=== PATIENT | female | born 1985 | race African-American/Black ===

== ENCOUNTER 2016-08-30 18:30 | Emergency (ER) | payer MEDICAID ==
--- NOTE | 2016-08-30 20:05 | ER Document Report ---
ED Medical Screen (RME) - General Stated Complaint: STOMACH PAIN Notes: Patient states she has been having dysuria for about 1 week. Also complains of lower abdominal pain, states she took a home test which turned out positive. Also has lower back pain, nausea without vomiting or diarrhea. Patient states child may have pinkeye, and her eyes have been itchy. The right one did have some mucus in it. States last menstrual period was either July 28 or August 06. I have greeted and performed a rapid initial assessment of this patient. A comprehensive ED assessment and evaluation of the patient, analysis of test results and completion of the medical decision making process will be conducted by additional ED providers. - Related Data Allergies/Adverse Reactions: No Known Allergies Allergy (Verified 08/30/16 20:04)
[2016-08-30 21:03] LABS: APPEARANCE,URINE CLEAR; BILIRUBIN,URINE NEGATIVE (NEGATIVE); GLUCOSE, URINE NEGATIVE (NEGATIVE); KETONES,URINE NEGATIVE (NEGATIVE); LEUKOCYTE ESTERASE,URINE TRACE (NEGATIVE); NITRITE,URINE NEGATIVE (NEGATIVE); PROTEIN,URINE NEGATIVE (NEGATIVE); URINE SPECIFIC GRAVITY 1.019; UROBILINOGEN,URINE NEGATIVE mg/dL (<2.0)
[2016-08-30] MEDS ORDERED: CEFTRIAXONE 1 GM/D5W RTU 50 ML IV ONE (21:25)
[2016-08-30] MEDS ORDERED: METOCLOPRAMIDE HCL 10 MG TABLET PO ONE (21:27)
[2016-08-30] MEDS ORDERED: DIPHENHYDRAMINE HCL 25 MG CAPSULE PO ONE (21:27)
--- NOTE | 2016-08-30 21:31 | ER Document Report ---
ED GI/ - General Chief Complaint: Urinary Problem Stated Complaint: STOMACH PAIN Time seen by provider: 21:27 Mode of Arrival: Ambulatory Information source: Patient Notes: 31-year-old female complaining of right pelvic pain and a positive home test at home. . She has been very nauseated for a week and a half. She has urinary urgency with voiding small amounts for one week. She also needs a note that says she can go back to work because her daughter has possible pinkeye. She had a watery right eye at work today no redness. LMP 2 -12 or 2-21 she does not remember. Denies vaginal discharge or vaginal bleeding. no vomiting or diarrhea. No history of gallbladder problems. No fever. She is shivering in the room but states she gets cold all the time. TRAVEL OUTSIDE OF THE [place] IN LAST 30 DAYS: No - Related Data Allergies/Adverse Reactions: No Known Allergies Allergy (Verified 08/30/16 20:04) Past Medical History - General Information source: Patient - Social History Smoking Status: Former Smoker Chew tobacco use (# tins/day): No Frequency of alcohol use: Rare Drug Abuse: None Lives with: Family Family History: Reviewed & Not Pertinent - Medical History Notes: Renal/ Medical History: Denies: Hx Peritoneal Dialysis Past Surgical History: Reports: Hx Gynecologic Surgery - LEEP for dysplasia Review of Systems - Review of Systems Constitutional: No symptoms reported EENT: See HPI Cardiovascular: No symptoms reported Respiratory: No symptoms reported Gastrointestinal: See HPI Genitourinary: No symptoms reported Female Genitourinary: No symptoms reported Musculoskeletal: No symptoms reported Skin: No symptoms reported Hematologic/Lymphatic: No symptoms reported Neurological/Psychological: No symptoms reported Physical Exam - Vital signs Vitals: Pulse BP Pulse Ox 83 114/69 100 08/30/16 19:38 08/30/16 19:38 08/30/16 19:38 Interpretation: Normal Notes: Temp 99 respiratory rate was 16 but it has not been recorded in the chart yet by the nurse. - General General appearance: Appears well, Alert Notes: Shivering - HEENT Head: Normocephalic, Atraumatic Eyes: Normal Conjunctiva: Normal. No: Injected, Purulent discharge Extraocular movements intact: Yes Eyelashes: Normal Pupils: PERRL Nerve palsy: No Mucous membranes: Normal Pharynx: Normal Neck: Supple - Respiratory Respiratory status: No respiratory distress Chest status: Nontender Breath sounds: Normal Chest palpation: Normal - Cardiovascular Rhythm: Regular Heart sounds: Normal auscultation Murmur: No - Abdominal Inspection: Normal Distension: No distension Bowel sounds: Normal Tenderness: Tender - Right pelvis. No: McBurney's point Organomegaly: No organomegaly. No: Hepatomegaly, Splenomegaly - Genitourinary External exam: Normal Speculum exam: Normal, Cervix closed Vaginal bleeding: None Bimanuel exam: No: Cervical motion tender, Adnexal tenderness Notes: Wet prep is negative - Back Back: Normal, Nontender. No: CVA tenderness - Extremities General upper extremity: Normal inspection, Nontender, Normal color, Normal ROM , Normal temperature General lower extremity: Normal inspection, Nontender, Normal color, Normal ROM , Normal temperature, Normal weight bearing. No: Elo's sign - Neurological Neuro grossly intact: Yes Cognition: Normal Orientation: AAOx4 Romina Coma Scale Eye Opening: Spontaneous Romina Coma Scale Verbal: Oriented Romina Coma Scale Motor: Obeys Commands Romina Coma Scale Total: 15 Speech: Normal Motor strength normal: LUE, RUE, LLE, RLE Sensory: Normal - Psychological Associated symptoms: Normal affect, Normal mood - Skin Skin Temperature: Warm Skin Moisture: Dry Skin Color: Normal Skin irregularity: negative: Rash Course - Re-evaluation Re-evalutation: 08/30/16 21:30 Urinalysis shows 1+ bacteria with 18 wbc's a urine culture has been added, and urine chlamydia and gonorrhea test. I am giving her Rocephin IV. Also getting blood work and transvaginal ultrasound so she has right pelvis tenderness. Temp in triage was 99 and it as not been recorded in the chart yet I did tell the nurse about it. 08/30/16 21:31 Dr. zheng concerning the ultrasound and patient. 08/30/16 23:33 No intra-or extra uterine seen on ultrasound. Lab has not been drawn yet I got the receiver/laborer to get the blood 08/31/16 00:41 Abdomen is now nontende, pelvic exam was done vagina is normal no cervical motion tenderness, patient was able to eat and drink. She is not as nauseated. The Reglan and Benadryl which is been given. Wet prep sent to the lab. On a dictated hCG is 78 which is consistent with an ultrasound that does not show a . Since IV was not started I have given her oral Macrobid for the urinary tract infection pending the urine culture result. I instructed the patient to call me tomorrow night at 7 PM for the STD culture results. ConsultDr. Billings for dispo. - Vital Signs Vital signs: Temp Pulse Resp BP Pulse Ox 83 114/69 100 08/30/16 19:38 08/30/16 19:38 08/30/16 19:38 - Laboratory Result Diagrams: 08/30/16 23:54 08/30/16 23:54 Laboratory results interpreted by me: 08/30/16 08/30/16 08/30/16 19:45 23:54 23:54 Hgb 11.0 L Hct 34.6 L MCV 71 L MCH 22.5 L MCHC 31.8 L Beta HCG, Quant 78.95 H Ur Leukocyte Esterase TRACE H Urine HCG, Qual POSITIVE H Discharge - Discharge Clinical Impression: early Urinary tract infection Qualifiers: Urinary tract infection type: acute cystitis Hematuria presence: without hematuria Qualified Code(s): N30.00 - Acute cystitis without hematuria Condition: Good Disposition: HOME, SELF-CARE Instructions: Nitrofurantoin ([facility]), Urinary Tract Infection ([facility]), Pelvic Pain in ([facility]), [facility] ([facility]) Additional Instructions: Call me Friday night after 7 PM at [phone] for the STD culture results Take the antibiotic for the urinary tract infection Take the Reglan for nausea Return to the emergency room if worse Drink plenty of fluids Multivitamin daily Referral to health department and [facility] Urine culture pending Please complete the patient satisfaction survey if you get one, and return it.. If you do not receive a survey, then you can go to the [facility] website, [email or web address] and place your comments about your very good care. Thank you very much. It was a pleasure being your medical provider today. Forms: Return to Work
[2016-08-31 00:06] LABS: ABSOLUTE EOSINOPHILS # (AUTO) 0.2 10^3/uL (0.0-0.6); ABSOLUTE LYMPHOCYTES (AUTO) 2.3 10^3/uL (0.5-4.7); ABSOLUTE MONOCYTES (AUTO) 0.7 10^3/uL (0.1-1.4); ABSOLUTE NEUT (AUTO) 5.1 10^3/uL (1.7-8.2); BASOPHILS % (AUTO) 0.5 % (0-2); EOSINOPHILS % (AUTO) 2.8 % (0-6); HEMATOCRIT 34.6 % (36.0-47.0); HGB HCT DIFFERENCE -1.6; LYMPHOCYTES % (AUTO) 27.9 % (13-45); MEAN CORPUSCULAR HEMOGLOBIN 22.5 pg (27.0-33.4); MEAN CORPUSCULAR HGB CONC 31.8 g/dL (32.0-36.0); MEAN CORPUSCULAR VOLUME 71 fl (80-97); MONOCYTES % (AUTO) 8.5 % (3-13); RED BLOOD COUNT 4.89 10^6/uL (3.72-5.28); RED CELL DISTRIBUTION WIDTH 13.2 % (11.5-14.0); SEGMENTED NEUTROPHILS % (AUTO) 60.3 % (42-78); WHITE BLOOD COUNT 8.4 10^3/uL (4.0-10.5)
[2016-08-31 00:21] LABS: ALANINE AMINOTRANSFERASE 32 U/L (9-52); ALBUMIN 4.3 g/dL (3.5-5.0); ALKALINE PHOSPHATASE 69 U/L (38-126); ANION GAP 9 (5-19); ASPARTATE AMINO TRANSFERASE 23 U/L (14-36); BILIRUBIN,TOTAL 0.8 mg/dL (0.2-1.3); BLOOD UREA NITROGEN 7 mg/dL (7-20); CARBON DIOXIDE 24 mmol/L (22-30); CHLORIDE 106 mmol/L (98-107); CREATININE RESULT 0.52 mg/dL (0.52-1.25); GLUCOSE 107 mg/dL (75-110); TOTAL PROTEIN 7.3 g/dL (6.3-8.2)
[2016-08-31] MEDS ORDERED: NITROFURANTOIN MONOHYD/M-CRYST 100 MG CAPSULE PO ONE (00:29)
[2016-08-31] MEDS ORDERED: DIPHENHYDRAMINE HCL 25 MG CAPSULE ONE (00:33)
[2016-08-31] MEDS ORDERED: METOCLOPRAMIDE HCL 10 MG TABLET PO ONE (00:37)
[2016-08-31 01:16] VITALS: BP 121/71
[2016-08-31 01:41] LABS: CHLAM PCR DETECTED (NOT DETECT)
== END 2016-08-31 01:10 | disposition home or self-care (01) ==
LOC: ER 18:30
DX: O23.11 Infections of bladder in pregnancy, first trimester (principal); O26.891 Other specified pregnancy related conditions, first trimester; R10.2 Pelvic and perineal pain; R11.0 Nausea; R39.15 Urgency of urination; Z3A.00 Weeks of gestation of pregnancy not specified; Z87.891 Personal history of nicotine dependence
CPT/HCPCS: 99284; 36415; 87086; 87210; 84702; 85025; 81025; 87088; 80053; 81001; 87186; 87491; 87591; 76817; J8499

== ENCOUNTER 2016-09-06 16:17 | Emergency (ER) | payer SELFPAY ==
[2016-09-06] MEDS ORDERED: ALBUTEROL SULFATE 0.083% NEB 2.5 MG/3 ML AMPUL NEB ONE (16:29)
--- NOTE | 2016-09-06 16:30 | ER Document Report ---
ED Medical Screen (RME) - General Stated Complaint: DIFFICULTY BREATHING Notes: Patient complains of shortness of breath since yesterday. Does have cough cold symptoms. Has a history of asthma, and is out of her inhaler. Patient is possibly about 5 weeks. No fever. I have greeted and performed a rapid initial assessment of this patient. A comprehensive ED assessment and evaluation of the patient, analysis of test results and completion of the medical decision making process will be conducted by additional ED providers. TRAVEL OUTSIDE OF THE [place] IN LAST 30 DAYS: No - Related Data Allergies/Adverse Reactions: No Known Allergies Allergy (Verified 09/06/16 16:29) Past Medical History Renal/ Medical History: Denies: Hx Peritoneal Dialysis Past Surgical History: Reports: Hx Gynecologic Surgery - LEEP for dysplasia Physical Exam - Respiratory Notes: Decreased air movement and expiratory wheezes on auscultation. Patient in no respiratory distress.
--- NOTE | 2016-09-06 19:22 | ER Document Report ---
ED General - General Chief Complaint: Asthma Exacerbation Stated Complaint: DIFFICULTY BREATHING Mode of Arrival: Ambulatory Information source: Patient Notes: This is a 31-year-old female with a history of asthma who presents with increasing wheezing and upper respiratory symptoms for the past 3 days. She states that she has been out of her albuterol inhaler and her medication for the nebulizer for several months. She states that when she lived in [place] she did not really needs and medicines but since moving back here to [place] last fall she has had more problems with her asthma. She denies any fevers or chills. No systemic symptoms. No sputum production. Her children have had recent URIs. She received an albuterol neb upon triage and she is artificially better. Of note she states that when she was seen here last week she was told that her test is positive. She has continued to have some nausea and occasional bilateral lower quadrant abdominal cramping. She has had no vaginal bleeding. She is being treated for UTI with Macrobid and thinks that she may have a yeast infection because she has been having some some itching. She has not yet scheduled her OB care. She is tolerating PO TRAVEL OUTSIDE OF THE [place] IN LAST 30 DAYS: No - Related Data Allergies/Adverse Reactions: No Known Allergies Allergy (Verified 09/06/16 16:29) Past Medical History - General Information source: Patient - Social History Smoking Status: Former Smoker Chew tobacco use (# tins/day): No Frequency of alcohol use: None Drug Abuse: None Family History: Reviewed & Not Pertinent Pulmonary Medical History: Reports: Hx Asthma Renal/ Medical History: Denies: Hx Peritoneal Dialysis Past Surgical History: Reports: Hx Gynecologic Surgery - LEEP for dysplasia Review of Systems - Review of Systems Constitutional: denies: Chills, Fever EENT: See HPI, Nose congestion. denies: Sinus pressure Cardiovascular: No symptoms reported. denies: Chest pain, Palpitations, Syncope , Dizziness Respiratory: See HPI, Cough, Short of breath, Wheezing Gastrointestinal: See HPI Genitourinary: See HPI Musculoskeletal: No symptoms reported Skin: No symptoms reported Neurological/Psychological: No symptoms reported Physical Exam - Vital signs Vitals: Temp Pulse Resp BP Pulse Ox 99.0 F 105 H 18 100/64 99 09/06/16 16:25 09/06/16 16:25 09/06/16 16:25 09/06/16 16:25 09/06/16 16:25 - Notes Notes: PHYSICAL EXAMINATION: GENERAL: Well-appearing, well-nourished and in no acute distress. Pleasant and conversant with no conversational dyspnea HEAD: Atraumatic, normocephalic. EYES: Pupils equal round and reactive to light, extraocular movements intact, sclera anicteric, conjunctiva are normal. ENT: nares with mucous/congestion, oropharynx clear without exudates. Moist mucous membranes. NECK: Normal range of motion, supple without lymphadenopathy LUNGS: Breath sounds clear to auscultation bilaterally and equal. No wheezes rales or rhonchi. HEART: Regular rate and rhythm without murmurs ABDOMEN: Soft, nontender, normoactive bowel sounds. No guarding, no rebound. No masses appreciated. EXTREMITIES: Normal range of motion, no pitting or edema. No cyanosis. NEUROLOGICAL: Cranial nerves grossly intact. Normal speech. No gross focal motor or sensory deficits appreciated. PSYCH: Normal mood, normal affect. SKIN: Warm, Dry, normal turgor, no rashes or lesions noted. Course - Re-evaluation Re-evalutation: 09/06/16 19:20 Patient is already feeling better after first albuterol neb and I hear no wheezes on her lung exam. Her vital signs are stable. I will refill her albuterol inhaler and her nebulizer medications and have her follow-up with her primary care physician and with OB. She is encouraged to seek care. At this time her abdominal exam is benign and she has had no vaginal bleeding. We discussed strict return precautions to include increased abdominal pain, vaginal bleeding, fevers, or increasing shortness of breath or any worsening symptoms or concerns. 09/06/16 19:59 At time of discharge patient expresses to nurse that she is feeling a little bit worse. Her discharge vital she's noted to be febrile at 100.0 and more tachycardic at 120. Her lungs were still clear to auscultation bilaterally but she states that she feels like she needs another breathing treatment. At this time with the change in her vitals we will check basic labs, give a fluid bolus , and a second breathing treatment at this time. Discharge is held for the moment. 09/06/16 21:11 Patient reevaluated. She is sitting up smiling and testing on her phone. Her lung sounds are clear to auscultation bilaterally. She states that she feels much better. Her heart it is now 96. She is comfortable with the plan for discharge and her meds for her asthma have been renewed. She will follow-up for her OB care as instructed. Strict return precautions were discussed. - Vital Signs Vital signs: Temp Pulse Resp BP Pulse Ox 100 F 125 H 20 100/55 L 99 09/06/16 19:34 09/06/16 19:34 09/06/16 19:34 09/06/16 19:34 09/06/16 19:34 - Laboratory Result Diagrams: 09/06/16 20:20 09/06/16 20:20 Laboratory results interpreted by me: 09/06/16 09/06/16 20:20 20:20 Hgb 10.9 L Hct 34.2 L MCV 70 L MCH 22.3 L MCHC 31.7 L Monocytes % 18.2 H BUN 6 L Glucose 124 H ALT 55 H Discharge - Discharge Clinical Impression: Early stage of Asthma Qualifiers: Asthma severity: unspecified severity Asthma complication type: uncomplicated Qualified Code(s): J45.909 - Unspecified asthma, uncomplicated Upper respiratory infection Qualifiers: URI type: unspecified viral URI Qualified Code(s): J06.9 - Acute upper respiratory infection, unspecified Condition: Stable Disposition: HOME, SELF-CARE Additional Instructions: ASTHMA: You have been diagnosed as having asthma. This is a condition where there is episodic tightness in the bronchial tubes. Allergies, infections, and polluted or cold air may be contributing factors. Emergency treatment of a severe asthma attack may include adrenaline shots , or bronchodilator aerosol. You may feel lightheaded, have a decreased exercise tolerance and a rapid pulse for an hour or two. Rest and get plenty of fluids. Home treatment of asthma requires bronchodilator drugs. These can be administered by injection, inhalation, or by mouth. Antibiotics and corticosteroids may be required for some patients. You should avoid chemical fumes, dusts, pollens, and exercising in very cold or dry air. If you smoke, stop!! If you develop a fever, increased wheezing, chest pain, or severe shortness of breath, you should contact the doctor immediately. INHALED BRONCHODILATORS: You have received treatment(s) of and/or prescription for an inhaled bronchodilator -- a medication which stimulates the airways in the lung to dilate. This improves the flow of air in asthma, bronchitis, and emphysema. These medicines have some similarity to adrenaline, and can cause similar side effects: shakiness, racing heart, and a sense of nervousness. These side effects decrease with time. Contact your doctor if these side effects are severe. Do not over-use the medicine. Too-frequent use of the inhaler may make it ineffective. Call your doctor if the inhaler is not controlling your symptoms at the prescribed doses. SMOKING: If you smoke, you should stop smoking. The tar and chemicals in cigarette smoke are harmful. Smoking has been shown to cause: emphysema chronic bronchitis lung cancer mouth and throat cancer stomach and pancreas cancer premature aging defects In addition, smoking increases ear and lung infections in children of smokers. You are . care is best started as early in as possible. If you're unsure about continuing this , you should discuss this with your physician or with manufacturing group leader at [facility]. You should take only medications approved by your physician. Acetaminophen can safely be taken for minor pains. As a rule, medication for chronic conditions such as asthma or seizures can safely be continued. You should discuss with the physician every medicine you take. Any regular exercise program can be continued. Talk to your physician, however, before engaging in competitive or demanding sports. Alcohol, smoking, and "street drugs" are dangerous to your baby. Cocaine is especially dangerous. Don't use any illicit drugs! FOLLOW-UP CARE: If you have been referred to a physician for follow-up care, call the physician s office for an appointment as you were instructed or within the next two days. If you experience worsening or a significant change in your symptoms, notify the physician immediately or return to the Emergency Department at any time for re-evaluation. Prescriptions: Albuterol Sulfate [Proair HFA Inhalation Aerosol 8.5 gm MDI] 2 puff IH Q4H PRN # 1 mdi PRN Reason: Ipratropium/Albuterol Sulfate [Duoneb 3 ml Ampul] 3 ml NEB [id number] #20 vial.neb Forms: Return to Work
[2016-09-06] MEDS ORDERED: LEVALBUTEROL HCL NEB 1.25 MG/3 ML AMPUL NEB ONE (19:53)
[2016-09-06] MEDS ORDERED: NORMAL SALINE 1000 ML 1,000 ML IV ONE (19:55)
[2016-09-06] MEDS ORDERED: ACETAMINOPHEN 325 MG TABLET PO ONE (19:57)
[2016-09-06 20:39] LABS: ABSOLUTE EOSINOPHILS # (AUTO) 0.1 10^3/uL (0.0-0.6); ABSOLUTE LYMPHOCYTES (AUTO) 0.7 10^3/uL (0.5-4.7); ABSOLUTE NEUT (AUTO) 3.5 10^3/uL (1.7-8.2); BASOPHILS % (AUTO) 0.3 % (0-2); EOSINOPHILS % (AUTO) 1.9 % (0-6); HEMATOCRIT 34.2 % (36.0-47.0); HEMOGLOBIN 10.9 g/dL (12.0-15.5); HGB HCT DIFFERENCE -1.5; LYMPHOCYTES % (AUTO) 13.1 % (13-45); MEAN CORPUSCULAR HEMOGLOBIN 22.3 pg (27.0-33.4); MEAN CORPUSCULAR HGB CONC 31.7 g/dL (32.0-36.0); MEAN CORPUSCULAR VOLUME 70 fl (80-97); MONOCYTES % (AUTO) 18.2 % (3-13); RED BLOOD COUNT 4.86 10^6/uL (3.72-5.28); RED CELL DISTRIBUTION WIDTH 13.3 % (11.5-14.0); SEGMENTED NEUTROPHILS % (AUTO) 66.5 % (42-78); WHITE BLOOD COUNT 5.3 10^3/uL (4.0-10.5)
[2016-09-06 20:54] LABS: ALANINE AMINOTRANSFERASE 55 U/L (9-52); ALBUMIN 4.1 g/dL (3.5-5.0); ALKALINE PHOSPHATASE 67 U/L (38-126); ANION GAP 13 (5-19); ASPARTATE AMINO TRANSFERASE 32 U/L (14-36); BILIRUBIN,DIRECT 0.2 mg/dL (0.0-0.4); BILIRUBIN,TOTAL 0.3 mg/dL (0.2-1.3); BLOOD UREA NITROGEN 6 mg/dL (7-20); CALCIUM 9.4 mg/dL (8.4-10.2); CARBON DIOXIDE 23 mmol/L (22-30); CHLORIDE 102 mmol/L (98-107); CREATININE RESULT 0.53 mg/dL (0.52-1.25); GLUCOSE 124 mg/dL (75-110); POTASSIUM 3.9 mmol/L (3.6-5.0); SODIUM 138.3 mmol/L (137-145)
[2016-09-06 21:14] VITALS: BP 102/66
== END 2016-09-06 21:25 | disposition home or self-care (01) ==
LOC: ER 16:17
DX: J45.909 Unspecified asthma, uncomplicated (principal); J06.9 Acute upper respiratory infection, unspecified; R06.02 Shortness of breath; R11.0 Nausea; R10.30 Lower abdominal pain, unspecified; Z87.891 Personal history of nicotine dependence
CPT/HCPCS: 94640 ×3; 99285; 36415; 85025; 80053; J7030; J3490

== ENCOUNTER 2016-09-14 12:19 | Observation (INO) | payer SELFPAY ==
[~2016-09-14 12:19] MED LIST: GLYCOPYRROLATE INJ 0.4 MG/2 ML VIAL ONE; LIDOCAINE 2% INJ-PF (20 MG/ML) 10 ML AMPUL ONE; NEOSTIGMINE METHYLSULFATE 10 MG/10 ML VIAL ONE; SUCCINYLCHOLINE CHLORIDE INJ 200 MG/10 ML VIAL ONE
--- NOTE | 2016-09-14 13:42 | ER Document Report ---
Doctor's Note Notes: 09/14/16 13:40 31-year-old female 10 para 6 who is approximately 7 weeks presents with complaints of bright red blood when she wipes. Symptoms have been ongoing since yesterday notes bilateral suprapubic tenderness without any fevers chills nausea vomiting or diarrhea 09/14/16 13:42 I have greeted and performed a rapid initial assessment of this patient. A comprehensive ED assessment and evaluation of the patient, analysis of test results and completion of the medical decision making process will be conducted by additional ED providers. Abdominal exam: Soft nontender no rebound or guarding noted patient no specific distress
[2016-09-14 14:11] LABS: ABSOLUTE EOSINOPHILS # (AUTO) 0.1 10^3/uL (0.0-0.6); ABSOLUTE LYMPHOCYTES (AUTO) 1.7 10^3/uL (0.5-4.7); ABSOLUTE MONOCYTES (AUTO) 0.7 10^3/uL (0.1-1.4); ABSOLUTE NEUT (AUTO) 7.4 10^3/uL (1.7-8.2); BASOPHILS % (AUTO) 0.1 % (0-2); EOSINOPHILS % (AUTO) 0.5 % (0-6); HEMATOCRIT 32.4 % (36.0-47.0); HEMOGLOBIN 10.4 g/dL (12.0-15.5); HGB HCT DIFFERENCE -1.2; LYMPHOCYTES % (AUTO) 17.5 % (13-45); MEAN CORPUSCULAR HEMOGLOBIN 22.5 pg (27.0-33.4); MEAN CORPUSCULAR HGB CONC 32.2 g/dL (32.0-36.0); MEAN CORPUSCULAR VOLUME 70 fl (80-97); MONOCYTES % (AUTO) 7.1 % (3-13); RED BLOOD COUNT 4.65 10^6/uL (3.72-5.28); RED CELL DISTRIBUTION WIDTH 13.4 % (11.5-14.0); SEGMENTED NEUTROPHILS % (AUTO) 74.8 % (42-78)
[2016-09-14 14:33] LABS: ALANINE AMINOTRANSFERASE 49 U/L (9-52); ALKALINE PHOSPHATASE 72 U/L (38-126); ANION GAP 12 (5-19); ASPARTATE AMINO TRANSFERASE 21 U/L (14-36); BILIRUBIN,DIRECT 0.2 mg/dL (0.0-0.4); BILIRUBIN,TOTAL 0.5 mg/dL (0.2-1.3); BLOOD UREA NITROGEN 5 mg/dL (7-20); CALCIUM 9.6 mg/dL (8.4-10.2); CARBON DIOXIDE 24 mmol/L (22-30); CHLORIDE 106 mmol/L (98-107); CREATININE RESULT 0.51 mg/dL (0.52-1.25); GLUCOSE 109 mg/dL (75-110); POTASSIUM 4.1 mmol/L (3.6-5.0); SODIUM 141.5 mmol/L (137-145)
[2016-09-14 15:00] LABS: APPEARANCE,URINE CLEAR; BILIRUBIN,URINE NEGATIVE (NEGATIVE); GLUCOSE, URINE NEGATIVE (NEGATIVE); KETONES,URINE NEGATIVE (NEGATIVE); LEUKOCYTE ESTERASE,URINE NEGATIVE (NEGATIVE); NITRITE,URINE NEGATIVE (NEGATIVE); PROTEIN,URINE NEGATIVE (NEGATIVE); URINE SPECIFIC GRAVITY 1.023; UROBILINOGEN,URINE NEGATIVE mg/dL (<2.0)
--- NOTE | 2016-09-14 15:44 | ER Document Report ---
ED General - General Chief Complaint: Vag Bleeding, +preg <12wks Stated Complaint: VAGINAL BLEEDING Mode of Arrival: Ambulatory Information source: Patient Notes: 31-year-old female 10 para 6 with approximate 7 weeks presents with complaints of bleeding when she wipes. Patient denies any fever chills nausea vomiting or diarrhea. Patient admits to only mild pain. Patient has had 3 miscarriages TRAVEL OUTSIDE OF THE [place] IN LAST 30 DAYS: No - HPI Onset: This morning Onset/Duration: Sudden Quality of pain: Achy Severity: Mild Pain Level: 1 Associated symptoms: Other Exacerbated by: Denies Relieved by: Denies Similar symptoms previously: Yes Recently seen / treated by doctor: Yes - Related Data Allergies/Adverse Reactions: No Known Allergies Allergy (Verified 09/14/16 12:23) Past Medical History - General Last Menstrual Period: jul 28 - Social History Smoking Status: Never Smoker Cigarette use (# per day): No Chew tobacco use (# tins/day): No Smoking Education Provided: No Family History: Reviewed & Not Pertinent Patient has suicidal ideation: No Patient has homicidal ideation: No Pulmonary Medical History: Reports: Hx Asthma Renal/ Medical History: Denies: Hx Peritoneal Dialysis Past Surgical History: Reports: Hx Gynecologic Surgery - LEEP for dysplasia Review of Systems - Review of Systems Notes: REVIEW OF SYSTEMS: CONSTITUTIONAL : Denies fever, chills, or sweats. Denies recent illness. EENT: Denies eye, ear, throat, or mouth pain or symptoms. Denies nasal or sinus congestion or discharge. Denies throat, tongue, or mouth swelling or difficulty swallowing. CARDIOVASCULAR: Denies chest pain. Denies palpitations or racing or irregular heart beat. Denies ankle edema. RESPIRATORY: Denies cough, cold, or chest congestion. Denies shortness of breath, difficulty breathing, or wheezing. GASTROINTESTINAL: Denies abdominal pain or distention. Denies nausea, vomiting , or diarrhea. Denies blood in vomitus, stools, or per rectum. Denies black, tarry stools. Denies constipation. GENITOURINARY: Denies difficulty urinating, painful urination, burning, frequency, blood in urine, or discharge. FEMALE GENITOURINARY: Admits to vaginal bleeding light amount MUSCULOSKELETAL: Denies back or neck pain or stiffness. Denies joint pain or swelling. SKIN: Denies rash, lesions or sores. HEMATOLOGIC : Denies easy bruising or bleeding. LYMPHATIC: Denies swollen, enlarged glands. NEUROLOGICAL: Denies confusion or altered mental status. Denies passing out or loss of consciousness. Denies dizziness or lightheadedness. Denies headache. Denies weakness or paralysis or loss of use of either side. Denies problems with gait or speech. Denies sensory loss, numbness, or tingling. Denies seizures. PSYCHIATRIC: Denies anxiety or stress. Denies depression, suicidal ideation, or homicidal ideation. ALL OTHER SYSTEMS REVIEWED AND NEGATIVE. Dictation was performed using [employer] voice recognition software PHYSICAL EXAMINATION: GENERAL: Well-appearing, well-nourished and in no acute distress. HEAD: Atraumatic, normocephalic. EYES: Pupils equal round and reactive to light, extraocular movements intact, conjunctiva are normal. ENT: Nares patent, oropharynx clear without exudates. Moist mucous membranes. NECK: Normal range of motion, supple without lymphadenopathy LUNGS: Breath sounds clear to auscultation bilaterally and equal. No wheezes rales or rhonchi. HEART: Regular rate and rhythm without murmurs ABDOMEN: Soft, nontender, nondistended abdomen. No guarding, no rebound. No masses appreciated. Female : deferred Musculoskeletal: Normal range of motion, no pitting or edema. No cyanosis. NEUROLOGICAL: Cranial nerves grossly intact. Normal speech, normal gait. Normal sensory, motor exams PSYCH: Normal mood, normal affect. SKIN: Warm, Dry, normal turgor, no rashes or lesions noted. Physical Exam - Vital signs Vitals: Temp Pulse Resp BP Pulse Ox 98.3 F 91 16 101/58 L 99 09/14/16 12:25 09/14/16 12:25 09/14/16 12:25 09/14/16 12:25 09/14/16 12:25 Course - Re-evaluation Re-evalutation: 09/14/16 15:44 Patient's hCG Quant is noted to be 16,000, ultrasound notes only a left-sided mass which may be an ectopic however it was seen there on previous visit with a very low hCG at that time. Dr. López has been consulted patient has been placed in the room emergently 09/14/16 16:26 Dr. López will admit the patient to his service for probable laparoscopy Patient is stable at this time - Vital Signs Vital signs: Temp Pulse Resp BP Pulse Ox 98.3 F 91 16 101/58 L 99 09/14/16 12:25 09/14/16 12:25 09/14/16 12:25 09/14/16 12:25 09/14/16 12:25 - Laboratory Result Diagrams: 09/14/16 13:55 09/14/16 13:55 Laboratory results interpreted by me: 09/14/16 09/14/16 13:55 13:55 Hgb 10.4 L Hct 32.4 L MCV 70 L MCH 22.5 L BUN 5 L Creatinine 0.51 L Beta HCG, Quant 56947.00 H - Diagnostic Test Radiology reviewed: Image reviewed, Reports reviewed Critical Care Note - Critical Care Note Total time excluding time spent on procedures (mins): 34 Comments: 34 minutes of critical care time spent in direct contact evaluating and reevaluating the patient, treating symptoms, reviewing labs and studies and speaking with family and consultants excluding any procedures Discharge - Discharge Clinical Impression: Ectopic Qualifiers: Location of ectopic : unspecified location Intrauterine status: without intrauterine Qualified Code(s): O00.90 - Unspecified ectopic without intrauterine Antepartum hemorrhage Qualifiers: Trimester: first trimester Qualified Code(s): O46.91 - Antepartum hemorrhage, unspecified, first trimester Condition: Stable Disposition: ADMITTED OBSERVATION Admitting Provider: [facility] Admitted: Surgical Floor
[2016-09-14] MEDS ORDERED: AZITHROMYCIN INJ 500 MG VIAL IV ONE (17:11)
[2016-09-14] MEDS ORDERED: HYDROMORPHONE HCL INJ/PF 2 MG/ML AMPULE ONE ×2 (18:19→18:20)
[2016-09-14] MEDS ORDERED: ONDANSETRON HCL INJ/PF 4 MG/2 ML SDV ONE (18:20)
[2016-09-14] MEDS ORDERED: DEXAMETHASONE SOD PHOSPHATE INJ 4 MG/1 ML VIAL ONE (18:20)
[2016-09-14] MEDS ORDERED: MIDAZOLAM 2 MG/2 ML INJ ONE (18:20)
[2016-09-14] MEDS ORDERED: PROPOFOL INJ 200 MG/20 ML VIAL IV ONE (18:20)
[2016-09-14] MEDS ORDERED: EPHEDRINE SULFATE INJ 50 MG/1 ML AMPULE ONE (18:20)
[2016-09-14] MEDS ORDERED: FENTANYL CITRATE INJ/PF 100 MCG/2 ML AMPUL ONE (18:20)
[2016-09-14] MEDS ORDERED: MEPERIDINE HCL/PF INJ 25 MG/1 ML DISP.SYRIN IV PRN (18:56)
[2016-09-14] MEDS ORDERED: FENTANYL CITRATE INJ/PF 100 MCG/2 ML AMPUL IV PRN ×3 (18:56)
[2016-09-14] MEDS ORDERED: PROMETHAZINE HCL INJ 25 MG/1 ML VIAL IV PRN (18:56)
[2016-09-14] MEDS ORDERED: DIPHENHYDRAMINE HCL 50 MG/ML VIAL IV PRN (18:56)
--- NOTE | 2016-09-14 20:03 | Operative Report ---
Operative Report DATE OF SURGERY: 09/14/16 PREOPERATIVE DIAGNOSIS: Concern for ectopic POSTOPERATIVE DIAGNOSIS: No ectopic seen, left paraovarian cyst OPERATION: Diagnostic laparoscopy with removal of a left paraovarian cyst SURGEON: KOSTA SMALL ANESTHESIA: GA TISSUE REMOVED OR ALTERED: Left paraovarian cyst ESTIMATED BLOOD LOSS: minimal INTRAOPERATIVE FINDINGS: Normal tubes and ovaries. There is a left parovarian cyst. PROCEDURE: I was called to the ER to evaluate patient with a suspected ectopic . Her quad was reported as 16,000 with no intrauterine . She had presented for some spotting. Her blood type is O+. She was having some discomfort in the low pelvis. Ultrasound report read complex mass left ovary 2 x 2 centimeters with central fluid and soft tissue. Options were discussed with the patient. I elected to proceed with laparoscopy for evaluation. Patient was taken to the OR and placed in supine position. Gen. anesthesia was induced. She was placed in low dorsal lithotomy position using Demarco stirrups. Her abdomen perineum and vagina were prepared and draped in sterile fashion. An incision was made at the umbilicus and lateral umbilical defect was dilated with Ashlee clamp allowing a 5 mm port to be bluntly placed. Laparoscopy confirmed appropriate placement and the abdomen was insufflated with CO2 gas. A suprapubic incision was made and port placed sharply with excellent view of the pelvis. Each fallopian tube was identified and followed out to its fimbriated end. The tubes were torturous however they did not appear inflamed and I saw no evidence of a mass in the tube. From the left ovary and tubes there was a long adhesion with a cystic structure on the end. This was removed with the LigaSure device by cutting across the adhesion. The tubular structure was removed. It appears to be a paraovarian cyst. There was straw-colored fluid in the cul-de-sac and this was removed as well. I did view the upper abdomen as well and there were no masses. At this point suprapubic port was removed. The umbilical port and scope were removed and Unasyn. The fascia at the umbilicus was closed with a 2-0 Vicryl stitch and skin at both sites closed with a 4-0 undyed Vicryl stitch. There is no evidence of ectopic. She should be followed with serial ultrasounds. I will have her come to the office next week for follow-up ultrasound.
[2016-09-15] MEDS ORDERED: METOCLOPRAMIDE HCL INJ/PF 10 MG/2 ML SDV ONE (06:10)
[2016-09-15] MEDS ORDERED: METOCLOPRAMIDE HCL INJ/PF 10 MG/2 ML SDV IV ONE (06:45)
[2016-09-15] MEDS ORDERED: ONDANSETRON HCL INJ/PF 4 MG/2 ML SDV IV ONE (06:45)
[2016-09-15 08:15] VITALS: BP 92/61
--- NOTE | 2016-09-15 09:03 | DISCHARGE SUMMARY E ---
Discharge Summary NAME: RAY RAMIREZ : 1985 AGE: 31Y ADMITTED: 09/14/2016 DISCHARGED: 09/15/2016 HISTORY: The patient is a 31-year-old female, 10, para 6, A3, presenting with last menstrual period of 07/28. She has called the ER as the doctor is concerned about possibility of an ectopic. Her Quant hcg was 16,000 and the ultrasound was reported as no intrauterine over the phone. We did a diagnostic laparoscopy, which showed no ectopic in the fallopian tubes. A paraovarian cyst was removed. At this point, the procedure was stopped. Please see the operative report for details. The patient did well through the night. She did require some Reglan for nausea. She was discharged to home and will follow up on Friday. We will follow serial ultrasounds at this point in the office. DISCHARGE MEDICATIONS: Include Tylenol No. 3. We will also treat her Chlamydia with azithromycin. DICTATING PHYSICIAN: KOSTA SMALL M.D. [id number] PHY#: [id number] ID: [id number] JOB#: [id number] ACCT: [id number] cc:KOSTA SMALL M.D. > MTDD
== END 2016-09-15 09:50 | disposition home or self-care (01) ==
LOC: ER 12:19 → EH 17:07 → 2N 20:37
PROVIDERS: ADMIT Obstetrics & Gynecology; ATTEND Obstetrics & Gynecology
PROC: 0UB14ZZ Excision of Left Ovary, Percutaneous Endoscopic Approach (ICD-10-PCS; 2016-09-14)
PROC: 3E033GC Introduction of Other Therapeutic Substance into Peripheral Vein, Percutaneous Approach (ICD-10-PCS; principal; 2016-09-14 18:30)
DX: O34.81 Maternal care for other abnormalities of pelvic organs, first trimester (principal); N83.202 Unspecified ovarian cyst, left side; O99.511 Diseases of the respiratory system complicating pregnancy, first trimester; J45.909 Unspecified asthma, uncomplicated; Z3A.01 Less than 8 weeks gestation of pregnancy
CPT/HCPCS: 99291; 96365; 86900; 86901; 36415; 86850; 84702; 85025; 80053; 81001; 88304 ×2; 76817; 58662; J2250; J1100; J3010; J2765; J1170; J0330; J2405; J2704; J0456; J3490; 840; G0378

== ENCOUNTER 2016-10-03 12:04 | Emergency (ER) | payer SELFPAY ==
--- NOTE | 2016-10-03 12:31 | ER Document Report ---
ED Medical Screen (RME) - General Chief Complaint: Vag Bleeding, +preg <12wks Stated Complaint: VAGINAL BLEEDING Notes: Patient is 8 weeks with brownish spotting. She had a laparoscopic evaluation on 09/14/2016 for possible ectopic none was found. She has had an ultrasound showing a viable IUP at the office since then. She is blood type O positive. I have greeted and performed a rapid initial assessment of this patient. A comprehensive ED assessment and evaluation of the patient, analysis of test results and completion of the medical decision making process will be conducted by additional ED providers. TRAVEL OUTSIDE OF THE [place].S. IN LAST 30 DAYS: No - Related Data Allergies/Adverse Reactions: No Known Allergies Allergy (Verified 10/03/16 12:28) Past Medical History Pulmonary Medical History: Reports: Hx Asthma Renal/ Medical History: Reports: Hx Kidney Stones. Denies: Hx Peritoneal Dialysis Past Surgical History: Reports: Hx Gynecologic Surgery - LEEP for dysplasia Physical Exam - Vital signs Vitals: Temp Pulse Resp BP Pulse Ox 98.4 F 86 18 107/59 L 99 10/03/16 12:18 10/03/16 12:18 10/03/16 12:18 10/03/16 12:18 10/03/16 12:18 Course - Vital Signs Vital signs: Temp Pulse Resp BP Pulse Ox 98.4 F 86 18 107/59 L 99 10/03/16 12:18 10/03/16 12:18 10/03/16 12:18 10/03/16 12:18 10/03/16 12:18
[2016-10-03 13:10] LABS: ABSOLUTE EOSINOPHILS # (AUTO) 0.1 10^3/uL (0.0-0.6); ABSOLUTE LYMPHOCYTES (AUTO) 1.2 10^3/uL (0.5-4.7); ABSOLUTE MONOCYTES (AUTO) 0.7 10^3/uL (0.1-1.4); BASOPHILS % (AUTO) 0.3 % (0-2); EOSINOPHILS % (AUTO) 1.7 % (0-6); HEMATOCRIT 30.6 % (36.0-47.0); HEMOGLOBIN 9.8 g/dL (12.0-15.5); HGB HCT DIFFERENCE -1.2; LYMPHOCYTES % (AUTO) 14.9 % (13-45); MEAN CORPUSCULAR HEMOGLOBIN 22.2 pg (27.0-33.4); MEAN CORPUSCULAR HGB CONC 31.9 g/dL (32.0-36.0); MEAN CORPUSCULAR VOLUME 70 fl (80-97); RED BLOOD COUNT 4.39 10^6/uL (3.72-5.28); RED CELL DISTRIBUTION WIDTH 13.8 % (11.5-14.0); SEGMENTED NEUTROPHILS % (AUTO) 74.1 % (42-78); WHITE BLOOD COUNT 8.2 10^3/uL (4.0-10.5)
[2016-10-03 14:48] LABS: APPEARANCE,URINE CLEAR; BILIRUBIN,URINE NEGATIVE (NEGATIVE); GLUCOSE, URINE NEGATIVE (NEGATIVE); KETONES,URINE NEGATIVE (NEGATIVE); LEUKOCYTE ESTERASE,URINE NEGATIVE (NEGATIVE); NITRITE,URINE NEGATIVE (NEGATIVE); PROTEIN,URINE NEGATIVE (NEGATIVE); URINE SPECIFIC GRAVITY 1.021
--- NOTE | 2016-10-03 15:16 | ER Document Report ---
ED General - General Chief Complaint: Vag Bleeding, +preg <12wks Stated Complaint: VAGINAL BLEEDING Mode of Arrival: Ambulatory Information source: Patient Notes: Patient presents to the emergency department with complaints of noting brown type discharge when she wiped this morning and some abdominal cramping. Patient reports she is approximately 7 weeks , G10, P6. She denies trauma fever vomiting diarrhea. Reports some nausea. She reports she was evaluated for possible ectopic on September 14. One week after that [facility] and they did ultrasound and confirmed that she was approximate 7 weeks . Patient reports she was told that she could not go back to the center until she followed up with the health department. She reports the abdominal cramping felt more like she was hungry. She reports no further brown discharge. Patient is here with her 2 children reports she does not have anybody to take care of them. TRAVEL OUTSIDE OF THE [place].S. IN LAST 30 DAYS: No - HPI Onset: This morning Onset/Duration: Sudden Quality of pain: No pain Pain Level: Denies Associated symptoms: Nausea Exacerbated by: Denies Relieved by: Denies Similar symptoms previously: Yes Recently seen / treated by doctor: No - Related Data Allergies/Adverse Reactions: No Known Allergies Allergy (Verified 10/03/16 12:28) Past Medical History - General Information source: Patient Last Menstrual Period: 07/28/16 - Social History Smoking Status: Never Smoker Cigarette use (# per day): No Chew tobacco use (# tins/day): No Frequency of alcohol use: None Drug Abuse: None Lives with: Family Family History: Reviewed & Not Pertinent Patient has suicidal ideation: No Patient has homicidal ideation: No Pulmonary Medical History: Reports: Hx Asthma Renal/ Medical History: Reports: Hx Kidney Stones. Denies: Hx Peritoneal Dialysis Past Surgical History: Reports: Hx Abdominal Surgery, Hx Gynecologic Surgery - LEEP for dysplasia, ectopic surgery Review of Systems - Review of Systems Notes: Review HPI for review of systems., All other systems negative Physical Exam - Vital signs Vitals: Temp Pulse Resp BP Pulse Ox 98.4 F 86 18 107/59 L 99 10/03/16 12:18 10/03/16 12:18 10/03/16 12:18 10/03/16 12:18 10/03/16 12:18 - Notes Notes: PHYSICAL EXAMINATION: GENERAL: Well-appearing and in no acute distress HEAD: Atraumatic, normocephalic. EYES: Pupils equal round and reactive to light, Moist mucous membranes. NECK: Normal range of motion, supple without lymphadenopathy LUNGS: CTAB and equal. No wheezes rales or rhonchi. HEART: Regular rate and rhythm without murmurs ABDOMEN: Soft, no tenderness. No guarding, no rebound EXTREMITIES: Normal range of motion, no pitting edema. No cyanosis. NEUROLOGICAL: Cranial nerves grossly intact. Normal sensory/motor exams. PSYCH: Normal mood, normal affect. SKIN: Warm, Dry, normal turgor, no rashes or lesions noted Course - Re-evaluation Re-evalutation: 10/03/16 15:19 I contacted Resacee in ultrasound. She reports as long as the children are quiet and not running around the room touching equipment she will attempt ultrasound. Patient was updated on plan of care. She was instructed that we worry about the safety of her children. She was instructed that if the children start getting antsy then the ultrasound will have to be stopped. - Vital Signs Vital signs: Temp Pulse Resp BP Pulse Ox 98.1 F 86 20 110/69 100 10/03/16 17:07 10/03/16 17:07 10/03/16 17:07 10/03/16 17:07 10/03/16 17:07 - Laboratory Result Diagrams: 10/03/16 12:55 Laboratory results interpreted by me: 10/03/16 10/03/16 10/03/16 12:55 12:55 13:25 Hgb 9.8 L Hct 30.6 L MCV 70 L MCH 22.2 L MCHC 31.9 L Beta HCG, Quant 201790.00 H Urine Urobilinogen 2.0 H - Diagnostic Test Radiology reviewed: Image reviewed, Reports reviewed - Diagnostic report text EXAM DESCRIPTION: U/S OB TRANSVAGINAL W/O DOP COMPLETED DATE/TIME: 2016 4:06 pm REASON FOR STUDY: 8wks, spotting COMPARISON: OB ultrasound 2016 TECHNIQUE: Endovaginal static and realtime grayscale images acquired of the pelvis. Additional selected spectral and color Doppler images recorded. All images stored on PACs. bHCG: Pending LIMITATIONS: None. FINDINGS: FETUS : Living intrauterine . EGA: 8 weeks 2 days FRANCK: 05/13/2017 FHR: 165 beats per minute. SUBCHORIONIC BLEED: Yes SIZE OF BLEED: 1.4 cm UTERUS: No masses. No anomalies. Uterus is 12.6 x 9 x 8 cm in size CERVICAL LENGTH: 4 cm Closed. RIGHT ADNEXA: Not visualized due to bowel gas LEFT ADNEXA: Left ovary 2.8 x 1.8 x 1.8 cm in size with a 1.4 cm cyst, likely a corpus luteal cyst No adnexal free fluid. No adnexal masses. FREE FLUID: Small amount of free pelvic fluid. OTHER: No other significant finding. TECHNICAL DOCUMENTATION: JOB ID: [id number] [employer]- All Rights Reserved US/U/S OB TRANSVAGINAL W/O DOP IMPRESSION: LIVING INTRAUTERINE . EGA 8 weeks 2 days Small subchorionic hemorrhage Trimester of : First - 0 to 13 weeks Discharge - Discharge Clinical Impression: Abdominal cramping Qualifiers: Weeks of gestation: 8 weeks Qualified Code(s): Z3A.08 - 8 weeks gestation of Condition: Stable Disposition: HOME, SELF-CARE Additional Instructions: *You have been evaluated for abdominal cramp and discharge this am, *The ultra sound showed a living intrauterine , 8weeks 2 days *Small subchorionic hemorrhage *Follow up with the health department as scheduled *Return to ED for worsening condition, changes, needs
[2016-10-03 17:10] VITALS: BP 110/69
== END 2016-10-03 17:10 | disposition home or self-care (01) ==
LOC: ER 12:04
DX: O26.891 Other specified pregnancy related conditions, first trimester (principal); R10.9 Unspecified abdominal pain; R11.0 Nausea; O20.8 Other hemorrhage in early pregnancy; O99.511 Diseases of the respiratory system complicating pregnancy, first trimester; J45.909 Unspecified asthma, uncomplicated; Z3A.08 8 weeks gestation of pregnancy; Z87.442 Personal history of urinary calculi
CPT/HCPCS: 36415; 76817; 81001; 84702; 85025; 99284

== ENCOUNTER 2016-10-09 09:25 | Emergency (ER) | payer SELFPAY ==
[2016-10-09 09:31] VITALS: BP 113/66
--- NOTE | 2016-10-09 10:03 | ER Document Report ---
ED Medical Screen (RME) - General Chief Complaint: Vag Bleeding, +preg <12wks Stated Complaint: ABDOMINAL PAIN/VAGINAL BLEEDING Mode of Arrival: Ambulatory Information source: Patient Notes: This is a 31-year-old female G 10 P6 with 3 prior early miscarriages that presents with small amount of brown discharge on the toilet paper after she urinates. Of note she was seen here 6 days ago with similar complaint. At that time she had an ultrasound which demonstrated an IUP with good heart rate. She states her blood type is O+. Her Quant last week was over 200,000. She is in the process of initiating her OB care with the health department. She is on vitamins. She has had no dysuria. No red vaginal bleeding. She is not having to wear a pad. She is tolerating PO without difficulty. She presented today for reassurance that everything is okay with the . TRAVEL OUTSIDE OF THE [place].S. IN LAST 30 DAYS: No - Related Data Allergies/Adverse Reactions: No Known Allergies Allergy (Verified 10/03/16 12:28) Past Medical History - General Information source: Patient Last Menstrual Period: 07/28/16 Pulmonary Medical History: Reports: Hx Asthma Renal/ Medical History: Reports: Hx Kidney Stones. Denies: Hx Peritoneal Dialysis Past Surgical History: Reports: Hx Abdominal Surgery, Hx Gynecologic Surgery - LEEP for dysplasia, ectopic surgery Review of Systems - Review of Systems Notes: REVIEW OF SYSTEMS: CONSTITUTIONAL : Denies fever, chills, or sweats. Denies recent illness. EENT: Denies eye, ear, throat, or mouth pain or symptoms. Denies nasal or sinus congestion. CARDIOVASCULAR: Denies chest pain. RESPIRATORY: Denies cough, cold, or chest congestion. Denies shortness of breath, difficulty breathing, or wheezing. GASTROINTESTINAL: Denies abdominal pain. Denies nausea, vomiting, or diarrhea. GENITOURINARY: As per history of present illness FEMALE GENITOURINARY: As per history of present illness MUSCULOSKELETAL: Denies neck or back pain or joint pain or swelling. SKIN: Denies rash or skin lesions. HEMATOLOGIC : Denies easy bruising or bleeding. LYMPHATIC: Denies swollen, enlarged glands. NEUROLOGICAL: Denies altered mental status or loss of consciousness. Denies headache. PSYCHIATRIC: Denies anxiety or stress or depression. ALL OTHER SYSTEMS REVIEWED AND NEGATIVE. Physical Exam - Vital signs Vitals: Temp Pulse Resp BP Pulse Ox 98.3 F 86 16 113/66 100 10/09/16 09:26 10/09/16 09:26 10/09/16 09:26 10/09/16 09:10/09/16 09:26 - Notes Notes: PHYSICAL EXAMINATION: GENERAL: Well-appearing, well-nourished and in no acute distress. HEAD: Atraumatic, normocephalic. EYES: Pupils equal round and reactive to light, extraocular movements intact, sclera anicteric, conjunctiva are normal. ENT: Moist mucous membranes. LUNGS: Breath sounds clear to auscultation bilaterally and equal. No wheezes rales or rhonchi. HEART: Regular rate and rhythm without murmurs ABDOMEN: Soft, nontender, normoactive bowel sounds. No guarding, no rebound. No masses appreciated. PSYCH: Normal mood, normal affect. SKIN: Warm, Dry, normal turgor, no rashes or lesions noted. - General General appearance: Appears well In distress: None - Cardiovascular Rhythm: Regular Heart sounds: Normal auscultation, S1 appreciated, S2 appreciated Murmur: No - Abdominal Inspection: Normal Distension: No distension Bowel sounds: Normal Tenderness: Nontender - Neurological Neuro grossly intact: Yes Course - Re-evaluation Re-evalutation: 10/09/16 10:15 Discussion with patient regarding her reassuring ultrasound 6 days ago. She is not a RhoGAM candidate and does not need further blood work or ultrasound done today. 10/09/16 10:54 Urinalysis reviewed. No evidence of UTI. Patient reassured. At this point she will follow-up with her primary care physician and her OB doctor. Pelvic rest encouraged. Strict return precautions discussed. - Vital Signs Vital signs: Temp Pulse Resp BP Pulse Ox 98.3 F 86 16 113/66 100 10/09/16 09:26 10/09/16 09:26 10/09/16 09:26 10/09/16 09:10/09/16 09:26 - Laboratory Laboratory results interpreted by me: 10/09/16 10:15 Urine Urobilinogen 2.0 H Urine Ascorbic Acid 40 H Doctor's Discharge - Discharge Clinical Impression: Threatened in early Condition: Stable Disposition: HOME, SELF-CARE Additional Instructions: : You are . care is best started as early in as possible. If you're unsure about continuing this , you should discuss this with your physician or with diabetes territory manager at [facility]. You should take only medications approved by your physician. Acetaminophen can safely be taken for minor pains. As a rule, medication for chronic conditions such as asthma or seizures can safely be continued. You should discuss with the physician every medicine you take. Any regular exercise program can be continued. Talk to your physician, however, before engaging in competitive or demanding sports. Alcohol, smoking, and "street drugs" are dangerous to your baby. Cocaine is especially dangerous. Don't use any illicit drugs! BLEEDING DURING EARLY : You have been evaluated for passing blood while . While we take this symptom very seriously, most women with your degree of bleeding will go on to have a perfectly normal baby. At this time, there is no indication that a miscarriage will occur. (A miscarriage occurs when the fetus is abnormal. There is no medicine or treatment to prevent it.) A more serious cause of bleeding is tubal (or ectopic) . An ultrasound usually can show whether the is in the uterus or in the tube. Sometimes in early , no fetus is seen. In this case, careful follow-up, including repeat blood tests and repeat ultrasound, is necessary. Do not douche or have sex for at least a week, or until OK'd by the doctor. Don't use tampons. Call the doctor or return for re-examination if there is an increase in bleeding or cramping, extreme weakness, fainting, new abdominal pain, fever, or passage of tissue. FOLLOW-UP CARE: If you have been referred to a physician for follow-up care, call the physician s office for an appointment as you were instructed or within the next two days. If you experience worsening or a significant change in your symptoms (very heavy bleeding with large clots of blood, passage of tissue, more severe abdominal / pelvic pain or cramping, feeling faint or severe weakness, fever, etc.), notify the physician immediately or return to the Emergency Department at any time for re-evaluation. OBSTETRIC-GYNECOLOGIC (OB-CASE ASSISTANT) PHYSICIANS IN [place]: The [facility] [address] [place], [place] [phone] [facility] [address] [place] [address] [phone] For active duty and dependents diagnosed with a threatened or miscarriage, you should follow up in the following manner: Standard patients who have a local civilian provider should follow up with that provider. Patients of the Family Practice Clinic should call your Team Nurse at 8: 00 am the following morning for further instructions. If you are neither a Standard patient nor a patient of the Family Practice Clinic, you should follow up at the [facility] ([facility]) . Patients already enrolled in the [facility], Prime patients not assigned to the Family Practice Clinic, and Active Duty patients not assigned to Family Practice Clinic should report to the [facility] at 8:00 am the next morning that the [facility] is open and then you will be seen in the OB Clinic at 11:00 am.
[2016-10-09 10:32] LABS: APPEARANCE,URINE CLEAR; BILIRUBIN,URINE NEGATIVE (NEGATIVE); GLUCOSE, URINE NEGATIVE (NEGATIVE); KETONES,URINE NEGATIVE (NEGATIVE); LEUKOCYTE ESTERASE,URINE NEGATIVE (NEGATIVE); NITRITE,URINE NEGATIVE (NEGATIVE); PROTEIN,URINE NEGATIVE (NEGATIVE); URINE SPECIFIC GRAVITY 1.018
== END 2016-10-09 11:05 | disposition home or self-care (01) ==
LOC: ER 09:25
DX: O20.0 Threatened abortion (principal); O20.9 Hemorrhage in early pregnancy, unspecified; J45.909 Unspecified asthma, uncomplicated; Z87.442 Personal history of urinary calculi
CPT/HCPCS: 81001; 99284

== ENCOUNTER 2016-11-08 10:35 | Emergency (ER) | payer MEDICAID ==
--- NOTE | 2016-11-08 11:12 | ER Document Report ---
ED Fall - General Chief Complaint: Fall Stated Complaint: FALL,LEFT SIDE PAIN Time Seen by Provider: 11/08/16 10:56 Mode of Arrival: Ambulatory Information source: Patient TRAVEL OUTSIDE OF THE U.S. IN LAST 30 DAYS: No - HPI Patient complains to provider of: Fall Occurred: Just prior to arrival Where: Home Context: Tripped Associated symptoms: None Location of injury/pain: Abdomen Quality of pain: Achy Severity: Mild Notes: Patient is a 31-year-old female who reports being approximately 13 weeks , who presents to the emergency room complaining of trip and fall that occurred just prior to arrival, causing her to land on her left side, having mild abdominal cramping, denies any vaginal bleeding, no dysuria or hematuria - Related data Allergies/Adverse Reactions: No Known Allergies Allergy (Verified 11/08/16 10:52) Past Medical History - General Information source: Patient - Social History Smoking Status: Unknown if Ever Smoked Family History: Reviewed & Not Pertinent Patient has suicidal ideation: No Patient has homicidal ideation: No Pulmonary Medical History: Reports: Hx Asthma Renal/ Medical History: Reports: Hx Kidney Stones. Denies: Hx Peritoneal Dialysis Past Surgical History: Reports: Hx Abdominal Surgery, Hx Gynecologic Surgery - LEEP for dysplasia, ectopic surgery Review of Systems - Review of Systems Constitutional: No symptoms reported EENT: No symptoms reported Cardiovascular: No symptoms reported Respiratory: No symptoms reported Gastrointestinal: See HPI Genitourinary: No symptoms reported Female Genitourinary: See HPI Musculoskeletal: No symptoms reported Skin: No symptoms reported Hematologic/Lymphatic: No symptoms reported Neurological/Psychological: No symptoms reported -: Yes All other systems reviewed and negative Physical Exam - Vital signs Vitals: Temp Pulse Resp BP Pulse Ox 98.4 F 102 H 16 98/61 L 96 11/08/16 10:52 11/08/16 10:52 11/08/16 10:52 11/08/16 10:52 11/08/16 10:52 - Notes Notes: - General General appearance: Appears well, Alert In distress: None - HEENT Head: Normocephalic, Atraumatic Eyes: Normal Conjunctiva: Normal Extraocular movements intact: Yes Eyelashes: Normal Pupils: PERRL - Respiratory Respiratory status: No respiratory distress - Cardiovascular Rhythm: Regular - Abdominal Inspection: Normal, gravid female, no tenderness, normal bowel sounds - Back Back: Normal - Extremities General upper extremity: Normal inspection General lower extremity: Normal inspection - Neurological Neuro grossly intact: Yes Orientation: AAOx4 Romina Coma Scale Eye Opening: Spontaneous Romina Coma Scale Verbal: Oriented Romina Coma Scale Motor: Obeys Commands Romina Coma Scale Total: 15 - Psychological Associated symptoms: Normal affect, Normal mood - Skin Skin Temperature: Warm Skin Moisture: Dry Skin Color: Normal Course - Re-evaluation Re-evalutation: 11/08/16 12:27 Site ultrasound reveals a good movement and good heart rate, urinalysis was without abnormality and discussed with patient at bedside, she was provided with information for follow-up with [facility], advised to take Tylenol as needed for pain or return if symptoms worsen, patient acknowledges understanding and agreement with this plan - Vital Signs Vital signs: Temp Pulse Resp BP Pulse Ox 98.4 F 102 H 16 98/61 L 96 11/08/16 10:52 11/08/16 10:52 11/08/16 10:52 11/08/16 10:52 11/08/16 10:52 Procedures - Ultrasound/Bedside Ultrasound/Bedside Time completed: 12:27 Ultrasound: Other - Bedside OB ultrasound with good movement and good heart rate Discharge - Discharge Clinical Impression: Abdominal pain Qualifiers: Abdominal location: generalized Qualified Code(s): R10.84 - Generalized abdominal pain Qualifiers: Weeks of gestation: 13 weeks Qualified Code(s): Z3A.13 - 13 weeks gestation of Condition: Stable Disposition: HOME, SELF-CARE Instructions: Abdominal Pain ([facility]), Injuries in , Pelvic Pain in ([facility]), ([facility]), Ob-[employer] Doctors Additional Instructions: Follow up with your primary care provider and OBGYN in one to 2 days. Return to the emergency room immediately if symptoms worsen or any additional concerns.
[2016-11-08 12:18] LABS: APPEARANCE,URINE CLEAR; BILIRUBIN,URINE NEGATIVE (NEGATIVE); GLUCOSE, URINE NEGATIVE (NEGATIVE); KETONES,URINE NEGATIVE (NEGATIVE); LEUKOCYTE ESTERASE,URINE NEGATIVE (NEGATIVE); NITRITE,URINE NEGATIVE (NEGATIVE); PROTEIN,URINE NEGATIVE (NEGATIVE); URINE SPECIFIC GRAVITY 1.019; UROBILINOGEN,URINE NEGATIVE mg/dL (<2.0)
[2016-11-08 12:54] VITALS: BP 110/72
== END 2016-11-08 12:52 | disposition home or self-care (01) ==
LOC: ER 10:35
DX: R10.84 Generalized abdominal pain (principal); R52 Pain, unspecified; Z3A.13 13 weeks gestation of pregnancy; W19.XXXA Unspecified fall, initial encounter
CPT/HCPCS: 81001; 87086; 99283

== ENCOUNTER 2017-03-02 14:46 | Emergency (ER) | payer MEDICAID ==
--- NOTE | 2017-03-02 15:09 | ER Document Report ---
ED Medical Screen (RME) - General Chief Complaint: High Blood Sugar Stated Complaint: VOMITING TRAVEL OUTSIDE OF THE U.S. IN LAST 30 DAYS: No - HPI Notes: 03/02/17 15:09 Patient having erratic blood sugars (60s-150s however no high readings nausea vomiting last few days patient is 30 weeks denies any abdominal pain. - Related Data Allergies/Adverse Reactions: No Known Allergies Allergy (Verified 11/08/16 10:52) Past Medical History Pulmonary Medical History: Reports: Hx Asthma Renal/ Medical History: Reports: Hx Kidney Stones. Denies: Hx Peritoneal Dialysis Past Surgical History: Reports: Hx Abdominal Surgery, Hx Gynecologic Surgery - LEEP for dysplasia, ectopic surgery Review of Systems - Review of Systems Gastrointestinal: Nausea, Vomiting -: Yes All other systems reviewed and negative Physical Exam - Vital signs Vitals: Temp Pulse Resp BP Pulse Ox 99.6 F 85 16 91/63 L 100 03/02/17 14:53 03/02/17 14:53 03/02/17 14:53 03/02/17 14:53 03/02/17 14:53 - Abdominal Inspection: Normal Distension: No distension Bowel sounds: Normal Tenderness: Nontender Course - Vital Signs Vital signs: Temp Pulse Resp BP Pulse Ox 99.6 F 85 16 91/63 L 100 03/02/17 14:53 03/02/17 14:53 03/02/17 14:53 03/02/17 14:53 03/02/17 14:53
[2017-03-02] MEDS ORDERED: NORMAL SALINE 1000 ML 1,000 ML IV ONE (15:10)
--- NOTE | 2017-03-02 15:41 | ER Document Report ---
ED General - General Chief Complaint: High Blood Sugar Stated Complaint: VOMITING Time Seen by Provider: 03/02/17 15:10 Mode of Arrival: Ambulatory Information source: Patient TRAVEL OUTSIDE OF THE [place] IN LAST 30 DAYS: No - HPI Onset: Yesterday - LAST PM Onset/Duration: Gradual Quality of pain: No pain, Other - C/O "NUMBNESS" Associated symptoms: Weakness Exacerbated by: Denies Relieved by: Denies Similar symptoms previously: No Recently seen / treated by doctor: Yes - ROUTINE PRE- CARE - Related Data Allergies/Adverse Reactions: No Known Allergies Allergy (Verified 11/08/16 10:52) Past Medical History - General Information source: Patient - Social History Smoking Status: Never Smoker Chew tobacco use (# tins/day): No Frequency of alcohol use: None Drug Abuse: None Lives with: Family Family History: Reviewed & Not Pertinent Patient has suicidal ideation: No Patient has homicidal ideation: No - Past Medical History Cardiac Medical History: Reports: None Pulmonary Medical History: Reports: Hx Asthma Neurological Medical History: Reports: None Endocrine Medical History: Reports: Other - GESTATIONAL DIABETES Renal/ Medical History: Reports: Hx Kidney Stones. Denies: Hx Peritoneal Dialysis Malignancy Medical History: Reports: None GI Medical History: Reports: None Musculoskeltal Medical History: Reports None Psychiatric Medical History: Reports: None Past Surgical History: Reports: Hx Abdominal Surgery, Hx Gynecologic Surgery - LEEP for dysplasia, ectopic surgery, Hx Oral Surgery Review of Systems - Review of Systems Constitutional: See HPI EENT: No symptoms reported Cardiovascular: No symptoms reported Respiratory: No symptoms reported Gastrointestinal: See HPI Genitourinary: No symptoms reported Female Genitourinary: Musculoskeletal: No symptoms reported Skin: No symptoms reported Neurological/Psychological: No symptoms reported Physical Exam - Vital signs Vitals: Temp Pulse Resp BP Pulse Ox 99.6 F 85 16 91/63 L 100 03/02/17 14:53 03/02/17 14:53 03/02/17 14:53 03/02/17 14:53 03/02/17 14:53 Interpretation: Hypotensive. No: Tachycardic, Tachypneic - General General appearance: Appears well, Alert In distress: None - HEENT Head: Normocephalic Eyes: Normal Conjunctiva: Normal Ears: Normal Nasal: Normal Mouth/Lips: Normal Mucous membranes: Dry - MILDLY - Respiratory Respiratory status: No respiratory distress Breath sounds: Normal - Cardiovascular Rhythm: Regular Heart sounds: Normal auscultation Murmur: No - Abdominal Inspection: Gravid female Bowel sounds: Normal - Back Back: Normal - Extremities General upper extremity: Normal inspection General lower extremity: Normal inspection - Neurological Neuro grossly intact: Yes Cognition: Normal Orientation: AAOx4 - Psychological Associated symptoms: Normal affect, Normal mood - Skin Skin Temperature: Warm Skin Moisture: Dry Skin Color: Normal Skin Turgor: Elastic Course - Re-evaluation Re-evalutation: 03/02/17 16:33 Patient states she is feeling some better. Numbness has decreased. Laboratory results discussed with patient. - Vital Signs Vital signs: Temp Pulse Resp BP Pulse Ox 99.6 F 85 16 91/63 L 100 03/02/17 14:53 03/02/17 14:53 03/02/17 14:53 03/02/17 14:53 03/02/17 14:53 - Laboratory Result Diagrams: 03/02/17 15:35 03/02/17 15:35 Laboratory results interpreted by me: 03/02/17 03/02/17 15:35 15:35 Hgb 10.3 L Hct 30.8 L MCV 71 L MCH 23.7 L RDW 15.1 H Creatinine 0.45 L Discharge - Discharge Clinical Impression: Vomiting affecting , antepartum, Dehydration Gestational diabetes Qualifiers: Gestational diabetes mellitus control: diet-controlled Trimester: third trimester Qualified Code(s): O24.410 - Gestational diabetes mellitus in , diet controlled Condition: Stable Disposition: HOME, SELF-CARE Instructions: Intravenous (IV) Fluids ([facility]), Vomiting ([facility]), Antinausea Medication ([facility]), Dehydration ([facility]) Additional Instructions: REST, DRINK PLENTY OF FLUIDS. CONTINUE YOUR PRESCRIBED DIABETIC DIET. YOU MAY TAKE REGLAN (METOCLOPRAMIDE) FOR NAUSEA CONTROL IF NEEDED. FOLLOW UP WITH YOUR OB. DOCTOR SCHEDULED. RETURN TO E.R. IF YOU GET WORSE. Prescriptions: Metoclopramide HCl [Reglan 10 mg Tablet] 10 mg PO Q6HP PRN #14 tablet PRN Reason: For Nausea/Vomiting Referrals: VALENTINA BOWERS MD [Primary Care Provider] - Follow up as needed
[2017-03-02 15:58] LABS: ABSOLUTE EOSINOPHILS # (AUTO) 0.2 10^3/uL (0.0-0.6); ABSOLUTE LYMPHOCYTES (AUTO) 1.5 10^3/uL (0.5-4.7); ABSOLUTE MONOCYTES (AUTO) 0.7 10^3/uL (0.1-1.4); ABSOLUTE NEUT (AUTO) 6.6 10^3/uL (1.7-8.2); BASOPHILS % (AUTO) 0.2 % (0-2); EOSINOPHILS % (AUTO) 2.3 % (0-6); HEMATOCRIT 30.8 % (36.0-47.0); HEMOGLOBIN 10.3 g/dL (12.0-15.5); HGB HCT DIFFERENCE 0.1; LYMPHOCYTES % (AUTO) 16.8 % (13-45); MEAN CORPUSCULAR HEMOGLOBIN 23.7 pg (27.0-33.4); MEAN CORPUSCULAR HGB CONC 33.3 g/dL (32.0-36.0); MEAN CORPUSCULAR VOLUME 71 fl (80-97); MONOCYTES % (AUTO) 8.1 % (3-13); RED BLOOD COUNT 4.34 10^6/uL (3.72-5.28); RED CELL DISTRIBUTION WIDTH 15.1 % (11.5-14.0); SEGMENTED NEUTROPHILS % (AUTO) 72.6 % (42-78); WHITE BLOOD COUNT 9.2 10^3/uL (4.0-10.5)
[2017-03-02 16:09] LABS: ALANINE AMINOTRANSFERASE 29 U/L (9-52); ALBUMIN 3.7 g/dL (3.5-5.0); ALKALINE PHOSPHATASE 108 U/L (38-126); ANION GAP 9 (5-19); ASPARTATE AMINO TRANSFERASE 31 U/L (14-36); BILIRUBIN,DIRECT 0.4 mg/dL (0.0-0.4); BILIRUBIN,TOTAL 0.6 mg/dL (0.2-1.3); BLOOD UREA NITROGEN 8 mg/dL (7-20); CALCIUM 9.6 mg/dL (8.4-10.2); CARBON DIOXIDE 24 mmol/L (22-30); CHLORIDE 105 mmol/L (98-107); CREATININE RESULT 0.45 mg/dL (0.52-1.25); GLUCOSE 82 mg/dL (75-110); MAGNESIUM 1.8 mg/dL (1.6-2.3); SODIUM 138.3 mmol/L (137-145); TOTAL PROTEIN 7.1 g/dL (6.3-8.2)
[2017-03-02 16:26] LABS: APPEARANCE,URINE CLEAR; BILIRUBIN,URINE NEGATIVE (NEGATIVE); GLUCOSE, URINE NEGATIVE (NEGATIVE); KETONES,URINE NEGATIVE (NEGATIVE); LEUKOCYTE ESTERASE,URINE NEGATIVE (NEGATIVE); NITRITE,URINE NEGATIVE (NEGATIVE); PROTEIN,URINE NEGATIVE (NEGATIVE); URINE SPECIFIC GRAVITY 1.014; UROBILINOGEN,URINE NEGATIVE mg/dL (<2.0)
[2017-03-02 17:36] VITALS: BP 93/56
== END 2017-03-02 17:35 | disposition home or self-care (01) ==
LOC: ER 14:46
DX: O24.410 Gestational diabetes mellitus in pregnancy, diet controlled (principal); R73.9 Hyperglycemia, unspecified; R11.10 Vomiting, unspecified; E86.0 Dehydration; Z3A.00 Weeks of gestation of pregnancy not specified
CPT/HCPCS: 36415; 80053; 81001; 82962; 83036; 83690; 83735; 85025; 99284

== ENCOUNTER 2017-03-17 14:55 | Inpatient (IN) | payer MEDICAID ==
[2017-05-12] MEDS ORDERED: PENICILLIN G POTASSIUM 5,000,000 UNIT in DEXTROSE 5%-WATER 100 ML IV ONE (07:09)
[2017-05-12] MEDS ORDERED: OXYTOCIN/NORMAL SALINE 20 UNIT/1,000 ML RTUINJ IV PRN ×2 (07:09→17:16)
[2017-05-12] MEDS ORDERED: RINGERS SOLUTION,LACTATED 300 ML IV ONE (07:09)
[2017-05-12] MEDS ORDERED: PENICILLIN G-K 5 MILLION UNIT VIAL ONE ×3 (07:18→15:12)
[2017-05-12] MEDS ORDERED: PENICILLIN G-K 5 MILLION UNIT VIAL IV ONE (07:30)
[2017-05-12] MEDS: RINGERS SOLUTION,LACTATED 1,000 ML IV PRN ×3 (07:31→16:23)
[2017-05-12 07:43] LABS: ABSOLUTE EOSINOPHILS # (AUTO) 0.4 10^3/uL (0.0-0.6); ABSOLUTE LYMPHOCYTES (AUTO) 1.7 10^3/uL (0.5-4.7); ABSOLUTE MONOCYTES (AUTO) 0.7 10^3/uL (0.1-1.4); ABSOLUTE NEUT (AUTO) 5.4 10^3/uL (1.7-8.2); BASOPHILS % (AUTO) 0.3 % (0-2); HEMATOCRIT 29.9 % (36.0-47.0); HEMOGLOBIN 9.5 g/dL (12.0-15.5); HGB HCT DIFFERENCE -1.4; LYMPHOCYTES % (AUTO) 20.2 % (13-45); MEAN CORPUSCULAR HEMOGLOBIN 22.6 pg (27.0-33.4); MEAN CORPUSCULAR HGB CONC 31.9 g/dL (32.0-36.0); MEAN CORPUSCULAR VOLUME 71 fl (80-97); RED BLOOD COUNT 4.22 10^6/uL (3.72-5.28); RED CELL DISTRIBUTION WIDTH 14.2 % (11.5-14.0); SEGMENTED NEUTROPHILS % (AUTO) 65.5 % (42-78); WHITE BLOOD COUNT 8.3 10^3/uL (4.0-10.5)
[2017-05-12] MEDS ORDERED: OXYTOCIN/NORMAL SALINE 20 UNIT/1,000 ML RTUINJ ONE (07:57)
[2017-05-12] MEDS ORDERED: LIDOCAINE 1% INJ-PF (10 MG/ML) 30 ML SDV ONE (07:57)
[2017-05-12] MEDS ORDERED: MISOPROSTOL 0.2 MG TABLET ONE (07:57)
[2017-05-12 08:11] LABS: APPEARANCE,URINE SLIGHTLY-CLOUDY; BILIRUBIN,URINE NEGATIVE (NEGATIVE); GLUCOSE, URINE NEGATIVE (NEGATIVE); KETONES,URINE NEGATIVE (NEGATIVE); LEUKOCYTE ESTERASE,URINE NEGATIVE (NEGATIVE); NITRITE,URINE NEGATIVE (NEGATIVE); PROTEIN,URINE NEGATIVE (NEGATIVE); URINE SPECIFIC GRAVITY 1.025; UROBILINOGEN,URINE NEGATIVE mg/dL (<2.0)
[2017-05-12 08:27] LABS: URINE BARBITURATES SCREEN NEGATIVE; URINE METHADONE SCREEN NEGATIVE; URINE OPIATES LOW NEGATIVE; URINE PHENCYCLIDINE SCREEN NEGATIVE
[2017-05-12] MEDS ORDERED: PENICILLIN G POTASSIUM 2,500,000 UNIT in DEXTROSE 5%-WATER 50 ML IV SCH (11:10)
[2017-05-12] MEDS: PENICILLIN G-K 5 MILLION UNIT VIAL IV SCH ×2 (11:30→15:22)
[2017-05-12] MEDS ORDERED: MISOPROSTOL 0.1 MG TABLET ONE (11:55)
--- NOTE | 2017-05-12 11:56 | L&D Progress Notes ---
PROGRESS NOTES Datetime Report Generated by CPN: 05/12/2017 11:56 PROGRESS NOTE Impression Other: IUP @ 40w-IOL for GDM A2 Procedures: Sterile Vag Exam Plan: Continue Present Management; Induction; Cervical Ripening Informed Consent Obtained: Induction of Labor; Risks, Benefits and Alternatives Discussed Vital Signs : Reviewed; Within Normal Limits Comment: S: reports increase pain considering epidural for pain relief O: as stated above, pit @ 14mu/min, VSS A: IOL @ 40wga for GDM A2-stable P: will stop pitocin now and give 0.25mcg cytotec PV, epidural/IV pain meds prn. Dr. Castelan in unit and agreeable with poc. Random glucose now and follow protocol for glucose testing. VAGINAL EXAM Dilatation: FT Dilatation: fingertip Effacement: 50 Effacement: 25 Station: -3 Station: -3 Contractions: 3-5 Contractions: irregular MEMBRANES Membranes: Intact Membranes: Intact FETUS A Monitoring: External US FHR Category: Category I Presentation: Vertex SIGNATURE SIGNATURE: [id number];[id number] SIGNATURE: [id number] SIGNATURE: [id number] SIGNATURE: 14,[id number] SIGNATURE: 14,[id number] SIGNATURE: 14,[id number] SIGNATURE: 14,[id number] SIGNATURE: 14,[id number] SIGNATURE: 14,[id number] SIGNATURE: 14,[id number] SIGNATURE: 14,[id number] SIGNATURE: 14,[id number] SIGNATURE: 14,[id number] SIGNATURE: 14,[id number] Assignment: Kathy Castelan MD Signature: with User ID: Jen : with User ID: Jen
[2017-05-12] MEDS ORDERED: MISOPROSTOL 0.2 MG TABLET PV ONE ×2 (12:40→13:00)
[2017-05-12] MEDS ORDERED: FENTANYL/BUPIVACAINE/NS/PF 200 MCG/100 ML RTUINJ EPI ONE (15:31)
[2017-05-12] MEDS ORDERED: EPHEDRINE SULFATE INJ 50 MG/1 ML AMPULE ONE (15:31)
[2017-05-12] MEDS ORDERED: BUPIVACAINE HCL 0.25 % INJ/PF (2.5 MG/1 ML) 30 ML VIAL ONE (15:31)
[2017-05-12] MEDS ORDERED: EPHEDRINE SULFATE INJ 50 MG/1 ML AMPULE IV PRN (15:35)
[2017-05-12] MEDS ORDERED: EPHEDRINE SULFATE INJ 50 MG/1 ML AMPULE IV ONE (15:35)
[2017-05-12] MEDS ORDERED: BUPIVACAINE HCL 0.25 % INJ/PF (2.5 MG/1 ML) 30 ML VIAL INFIL ONE (15:35)
[2017-05-12] MEDS ORDERED: BENZOIN/ALOE VERA/STORAX/TOLU TINCTURE 60 ML TP PRN (15:35)
[2017-05-12] MEDS ORDERED: FENTANYL/BUPIVACAINE/NS/PF 200 MCG/100 ML RTUINJ EPI PRN (15:35)
--- NOTE | 2017-05-12 16:42 | L&D Progress Notes ---
PROGRESS NOTES Datetime Report Generated by CPN: 05/12/2017 16:42 PROGRESS NOTE Impression: Rupture of Membranes Impression Other: IUP @ 40w-IOL Procedures: Sterile Vag Exam Plan: Continue Present Management Informed Consent Obtained: Vaginal Delivery; Induction of Labor; Risks, Benefits and Alternatives Discussed Vital Signs : Reviewed; Within Normal Limits Comment: S: pt. called out stating water broke, reports relief of pain with epidural now experiencing increased perineal pressure with contractions O: as stated above A: IOL @ 40wga-progressing SROM-clear fluid P: continue IOL. reassess as clinically indicated or earlier prn. VAGINAL EXAM Dilatation: 4-5 Effacement: 100 Station: -1 Contractions: 1.5-3 MEMBRANES Membranes: Ruptured Amniotic Fluid Color: Clear FETUS A FHR - Baseline: 135 Accelerations: Prolonged Decelerations: Early; Late FETUS C SIGNATURE: [id number];[id number] Assignment: Kathy Castelan MD Signature: with User ID: Jen : with User ID: Jen
[2017-05-12] MEDS ORDERED: ACETAMINOPHEN 650 MG SUPP.RECT PR PRN (17:16)
[2017-05-12] MEDS ORDERED: PROMETHAZINE HCL 25 MG SUPP.RECT PR PRN (17:16)
[2017-05-12] MEDS ORDERED: MEASLES,MUMPS&RUBELLA VACC/PF 0.5 ML VIAL SUBCUT PRN (17:16)
[2017-05-12] MEDS ORDERED: NA PHOS,M-B/NA PHOS,DI-BA (ADULT) 133 ML ENEMA PR PRN (17:16)
[2017-05-12] MEDS ORDERED: PROMETHAZINE HCL 25 MG TABLET PO PRN (17:16)
[2017-05-12] MEDS ORDERED: DIPHENHYDRAMINE HCL 25 MG CAPSULE PO PRN (17:16)
[2017-05-12] MEDS ORDERED: BENZOCAINE/MENTHOL AEROSOL SPRAY 56 ML TOP PRN (17:16)
[2017-05-12] MEDS ORDERED: DIPH/PERTUSS(ACELL)/TETANUS VAC/PF 0.5 ML SYR (>=10YO) IM PRN (17:16)
[2017-05-12] MEDS ORDERED: MAGNESIUM HYDROXIDE SUSP 30 ML UDCUP PO PRN (17:16)
[2017-05-12] MEDS ORDERED: PSEUDOEPHEDRINE HCL 30 MG TABLET PO PRN (17:16)
[2017-05-12] MEDS ORDERED: MISOPROSTOL 0.2 MG TABLET PR PRN (17:16)
[2017-05-12] MEDS ORDERED: ZOLPIDEM TARTRATE 5 MG TABLET PO PRN (17:16)
[2017-05-12] MEDS ORDERED: ACETAMINOPHEN WITH CODEINE #3 TABLET PO PRN ×2 (17:16)
[2017-05-12] MEDS ORDERED: PROMETHAZINE HCL INJ 25 MG/1 ML VIAL IV PRN (17:16)
[2017-05-12] MEDS ORDERED: GLYCERIN/WITCH HAZEL LEAF 1 EACH MED..PAD TP PRN (17:16)
[2017-05-12] MEDS ORDERED: DIBUCAINE 1% OINTMENT 28 GM TP PRN (17:16)
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
--- NOTE | 2017-05-12 18:57 | Delivery Summary ---
Del Sum A-C Datetime Report Generated by CPN: 05/12/2017 18:57 DELIVERY PERSONNEL DELIVERY PERSONNEL: [id number] Delivery Doctor:: Cindy Tierney CNM Labor and Delivery Nurse:: Gissel Warner RNexecutive director of marketing Nurse:: Aury Riojas RN Plastics Fabrication Supervisor/WASTEWATER PLANT CIVIL ENGINEER: Adele Stiles WASTEWATER PLANT CIVIL ENGINEER II Plastics Fabrication Supervisor/WASTEWATER PLANT CIVIL ENGINEER: Margarita Acosta, Additional Personnel: : Naomie Tamayo RN MATERNAL INFORMATION Delivery Anesthesia: Epidural Medications After Delivery: Pitocin Bolus-Please Comment; Pitocin Drip 20 Units/1000ml NSS; Other-Please Comment Meds After Delivery Comment: CYTOTEC 1000 MCG AL BY CNM Estimated Blood Loss (ml): 100 Maternal Complications: None Provider Comments: Pt. progressed to 5cm after ROM and after a few contractions began feeling urge to push and was found to be c/c/+1. began pushing and went on to deliver a viable baby girl with vigorous respiratory effort and cry spontaneously at tight left foot cord noted. Baby placed on maternal abdomen and cord allowed to stop pulsating then clamped x2 and cut by mother. (3vc noted). Placenta delivered spontaneously intact, no lacerations and fundus firm at u-1- bleeding minimal and stable. 1mg cytotec placed rectally for grandmultipary. Mother and baby remain skin to skin and stable. LABOR SUMMARY EDC: 05/12/2017 00:00 No. Babies in Womb: 1 Attempted: No Labor Anesthesia: Epidural LABOR INFORMATION Reason for Induction: Maternal Diabetes Onset of Labor: 05/12/2017 11:43 Complete Dilatation: 05/12/2017 16:45 Cervical Ripening Agents: Cytotec @ Oxytocin: Induction Group B Beta Strep: Positive Antibiotics # of Doses: 3 Antibiotics Time of Last Dose: 1520 Name of Antibiotic Given: PENICILLIN G Steroids Given: None Reason Steroids Not Administered: Not Applicable MEMBRANES Membranes Rupture Method: Spontaneous Rupture of Membranes: 05/12/2017 16:31 Length of Rupture (hr): 0.40 Amniotic Fluid Color: Clear Amniotic Fluid Amount: Moderate STAGES OF LABOR Stage 1 hr: 5 Stage 1 min: 2 Stage 2 hr: 0 Stage 2 min: 10 Stage 3 hr: 0 Stage 3 min: 5 Total Time in Labor hr: 5 Total Time in Labor min: 17 VAGINAL DELIVERY Episiotomy: None Laceration #1: None Laceration Extension #1: N/A Laceration Repair: Not Applicable Laceration Repair Note: n/a Sponge Count Correct: N/A Sharps Count Correct: N/A BABY A INFORMATION Delivery Date/Time: 05/12/2017 16:55 Method of Delivery: Vaginal Born in Route : No : N/A Forceps: N/A Vacuum Extraction: N/A Shoulder Dystocia : No PRESENTATION/POSITION BABY A Presentation: Cephalic Cephalic Presentation: Vertex Vertex Position: Left Occipital Anterior Breech Presentation: N/A PLACENTA INFORMATION BABY A Placenta Delivery Time : 05/12/2017 17:00 Placenta Method of Delivery: Spontaneous Placenta Status: Delivered SCORES BABY A Heart Rate 1 min: >100 bpm Resp Effort 1 min: Good Cry Reflex Irritability 1 min: Cough or Sneeze or Pulls Away Muscle Tone 1 min: Active Motion Color 1 min: Body [place], Extremities Blue Resuscitation Effort 1 min: Tactile Stimulation SCORE 1 MIN: 9 Heart Rate 5 min: >100 bpm Resp Effort 5 min: Good Cry Reflex Irritability 5 min: Cough or Sneeze or Pulls Away Muscle Tone 5 min: Active Motion Color 5 min: Body [place], Extremities Blue Resuscitation Effort 5 min: Tactile Stimulation SCORE 5 MIN: 9 INFANT INFORMATION BABY A Gestational Age at Delivery: 40.0 Gestational Status: Full Term- 39- 40.6 Weeks Infant Outcome : Liveborn Condition : Stable Sex: Female IDENTIFICATION BABY A Infant Verification Date/Time: 05/12/2017 17:21 ID Band Number: [id number] Mother's Name Verified: Yes RN Verifying Infant: J , RN Additional Verifying Personnel: MICHAEL RIOJAS, RN WEIGHT/LENGTH BABY A Birthweight (gm): 3050 Weight (lb): 6 Weight (oz): 12 Infant Length (in): 19.50 Length (cm): 49.53 CORD INFORMATION BABY A No. Cord Vessels: 3 Nuchal Cord : N/A Nuchal Cord- Other: ANKLE CORD Cord Blood Taken: Yes-For Eval (Mom's Blood Type - or O+) Infant Suction: Mouth; Nose ASSESSMENT BABY A Complications: Multiple Late Decels; Multiple Variable Decels Physical Findings at Delivery: Within Normal Limits Infant Respirations: Appears Normal Skin to Skin: Yes Skin to Skin Time (min): 60 Batch Dumper/ALS Called : No Infant Care By: Quentin TAMAYO RN Transferred To: Remains with Mother BABY B INFORMATION : N/A SIGNATURES Assignment: Kathy Castelan MD Signature: with User ID: Jen : with User ID: Jen
[2017-05-12] MEDS: FERROUS SULFATE 325 MG TABLET PO SCH (20:06)
[2017-05-12] MEDS: DOCUSATE SODIUM 100 MG CAPSULE PO SCH (20:06)
[2017-05-12] MEDS: IBUPROFEN 800 MG TABLET PO SCH (21:57)
[2017-05-12] MEDS: FAMOTIDINE 20 MG TABLET PO SCH (21:58)
[2017-05-13] MEDS: IBUPROFEN 800 MG TABLET PO SCH ×3 (05:29→21:18)
[2017-05-13 08:19] LABS: HEMATOCRIT 27.3 % (36.0-47.0); HEMOGLOBIN 8.7 g/dL (12.0-15.5); HGB HCT DIFFERENCE -1.2; MEAN CORPUSCULAR HEMOGLOBIN 22.2 pg (27.0-33.4); MEAN CORPUSCULAR HGB CONC 31.8 g/dL (32.0-36.0); MEAN CORPUSCULAR VOLUME 70 fl (80-97); RED BLOOD COUNT 3.91 10^6/uL (3.72-5.28); RED CELL DISTRIBUTION WIDTH 14.1 % (11.5-14.0); WHITE BLOOD COUNT 9.8 10^3/uL (4.0-10.5)
[2017-05-13] MEDS: DOCUSATE SODIUM 100 MG CAPSULE PO SCH ×2 (10:31→17:03)
[2017-05-13] MEDS: FAMOTIDINE 20 MG TABLET PO SCH ×2 (10:32→21:19)
[2017-05-13] MEDS: PRENATAL VITAMIN W DHA CAPSULE PO SCH (10:32)
[2017-05-13] MEDS: FERROUS SULFATE 325 MG TABLET PO SCH ×2 (10:32→17:03)
[2017-05-13] MEDS: SENNOSIDES/DOCUSATE 8.6-50 MG 1 EACH TABLET PO SCH (10:35)
--- NOTE | 2017-05-13 12:11 | PDOC PROGRESS REPORT ---
Subjective-OB Subjective: Post Delivery Day: 32 year old. Denies any needs at this time. Reports without difficulty, bleeding diminishing, tolerating diet, voiding normally and passing gas. Physical Exam (OB) Vital Signs: Temp Pulse Resp BP Pulse Ox 97.8 F 66 15 99/63 L 98 05/13/17 08:00 05/13/17 08:00 05/13/17 08:00 05/13/17 08:00 05/13/17 08:00 Intake & Output 05/12/17 05/13/17 05/14/17 06:59 06:59 06:59 Weight 67 kg - Abdomen Description: Soft, Round Hernia Present: No Fundal Description: Firm, Midline Fundal Height: u/u - u/2 - Abdominal Tenderness: Nontender - Extremities Lower extremities: Nontender, Elo's sign - neg Objective-Diagnostic Laboratory: 05/13/17 07:28 05/13/17 07:28 WBC 9.8 RBC 3.91 Hgb 8.7 L Hct 27.3 L MCV 70 L MCH 22.2 L MCHC 31.8 L RDW 14.1 H Plt Count 173 Assessment and Plan(PN) - Assessment and Plan (1) Normal vaginal delivery Is this a current diagnosis for this admission?: Yes - Time Spent with Patient Time with patient: Less than 15 minutes - Disposition Anticipated Discharge: Home Within: within 24 hours
[2017-05-14] MEDS: IBUPROFEN 800 MG TABLET PO SCH (05:43)
[2017-05-14 08:42] VITALS: BP 103/61
--- NOTE | 2017-05-14 10:19 | PDOC DISCHARGE SUMMARY ---
General - Admit/Disc Date/PCP Admission Date/Primary Care Provider: 05/12/17 06:30 VALENTINA BOWERS MD Discharge Date: 05/14/17 - Discharge Diagnosis (1) Normal vaginal delivery Is this a current diagnosis for this admission?: Yes - Additional Information Home Medications: Albuterol Sulfate [Proair HFA] 1 - 2 puff IH Q4 PRN 03/31/17 Sertraline HCl [Zoloft] 100 mg PO DAILY 03/31/17 Glyburide 1 tab PO DAILY 04/23/17 105/Iron/Folic AC/Dha [Prena1 True Combo Pack] 1 tab PO DAILY 05/07/17 History of Present Illness History of Present Illness: RAY RAMIREZ is a 32 year old female Physical Exam - Physical Exam Vital Signs: Temp Pulse Resp BP Pulse Ox 98 F 71 16 103/61 100 05/14/17 08:40 05/14/17 08:40 05/14/17 08:40 05/14/17 08:40 05/14/17 08:40 Intake & Output 05/13/17 05/14/17 05/15/17 06:59 06:59 06:59 Intake Total 300 Balance 300 Weight 67 kg General appearance: PRESENT: no acute distress, well-developed, well-nourished Head exam: PRESENT: atraumatic, normocephalic Eye exam: PRESENT: conjunctiva pink, EOMI, PERRLA. ABSENT: scleral icterus Ear exam: PRESENT: normal external ear exam Mouth exam: PRESENT: moist, tongue midline Neck exam: PRESENT: full ROM. ABSENT: carotid bruit, JVD, lymphadenopathy, thyromegaly Cardiovascular exam: PRESENT: RRR. ABSENT: diastolic murmur, rubs, systolic murmur Pulses: PRESENT: normal dorsalis pedis pul, +2 pedal pulses bilateral Vascular exam: PRESENT: normal capillary refill GI/Abdominal exam: PRESENT: normal bowel sounds, soft. ABSENT: distended, guarding, mass, organolmegaly, rebound, tenderness Rectal exam: PRESENT: deferred Extremities exam: PRESENT: full ROM. ABSENT: calf tenderness, clubbing, pedal edema Neurological exam: PRESENT: alert, awake, oriented to person, oriented to place , oriented to time, oriented to situation, CN II-XII grossly intact. ABSENT: motor sensory deficit Psychiatric exam: PRESENT: appropriate affect, normal mood. ABSENT: homicidal ideation, suicidal ideation Skin exam: PRESENT: dry, intact, warm. ABSENT: cyanosis, rash Result Laboratory Results: 05/13/17 07:28
[2017-05-14] MEDS ORDERED: MEDROXYPROGESTERONE ACET INJ 150 MG/1 ML VIAL IM ONE (10:21)
[2017-05-14] MEDS: FAMOTIDINE 20 MG TABLET PO SCH (10:36)
[2017-05-14] MEDS: DOCUSATE SODIUM 100 MG CAPSULE PO SCH (10:36)
[2017-05-14] MEDS: PRENATAL VITAMIN W DHA CAPSULE PO SCH (10:36)
[2017-05-14] MEDS: SENNOSIDES/DOCUSATE 8.6-50 MG 1 EACH TABLET PO SCH (10:37)
[2017-05-14] MEDS: FERROUS SULFATE 325 MG TABLET PO SCH (10:37)
== END 2017-05-14 12:41 | disposition home or self-care (01) | DRG 775 ==
LOC: EDSTATUS 15:11 → LR 05-12 06:30 → 2S 05-12 18:50
PROVIDERS: ADMIT Obstetrics & Gynecology; ATTEND Obstetrics & Gynecology
PROC: 10E0XZZ Delivery of Products of Conception, External Approach (ICD-10-PCS; principal; 2017-05-12)
PROC: 3E0P7GC Introduction of Other Therapeutic Substance into Female Reproductive, Via Natural or Artificial Opening (ICD-10-PCS; 2017-05-12)
PROC: 4A1HXCZ Monitoring of Products of Conception, Cardiac Rate, External Approach (ICD-10-PCS; 2017-05-12)
DX: O24.429 Gestational diabetes mellitus in childbirth, unspecified control (principal); O99.344 Other mental disorders complicating childbirth; F32.9 Major depressive disorder, single episode, unspecified; F31.9 Bipolar disorder, unspecified; O99.52 Diseases of the respiratory system complicating childbirth; J45.909 Unspecified asthma, uncomplicated; F43.10 Post-traumatic stress disorder, unspecified; O99.824 Streptococcus B carrier state complicating childbirth; O76 Abnormality in fetal heart rate and rhythm complicating labor and delivery; O69.82X0 Labor and delivery complicated by other cord entanglement, without compression, not applicable or unspecified; Z87.891 Personal history of nicotine dependence; Z3A.40 40 weeks gestation of pregnancy; Z37.0 Single live birth
CPT/HCPCS: 36415; 80307; 81005; 82962; 85025; 85027; 86592; 86850; 86900; 86901; 88307; 94760; J1050; J2540; J2590; J3490

== ENCOUNTER 2017-03-24 16:56 | Outpatient (CLI) | payer MEDICAID ==
[2017-03-24 17:53] LABS: AMNISURE (ROM) NEGATIVE (NEGATIVE)
[2017-03-24 18:04] LABS: APPEARANCE,URINE CLEAR; BILIRUBIN,URINE NEGATIVE (NEGATIVE); GLUCOSE, URINE NEGATIVE (NEGATIVE); KETONES,URINE NEGATIVE (NEGATIVE); LEUKOCYTE ESTERASE,URINE NEGATIVE (NEGATIVE); NITRITE,URINE NEGATIVE (NEGATIVE); PROTEIN,URINE NEGATIVE (NEGATIVE)
[2017-03-24 18:31] LABS: URINE BARBITURATES SCREEN NEGATIVE; URINE METHADONE SCREEN NEGATIVE; URINE OPIATES LOW NEGATIVE; URINE PHENCYCLIDINE SCREEN NEGATIVE
--- NOTE | 2017-03-24 18:45 | Non Stress Test Report ---
Non Stress Test Datetime Report Generated by CPN: 03/24/2017 18:44 DEMOGRAPHIC EGA NST: 33.0 INDICATION Indication for Study: Ordered by Provider Indication for Study: Ordered by Provider Indication for Study (NST) Other: LC MONITORING Monitor Explained: Monitor Explained; Test Explained; Patient Verbalized Understanding Time on Monitor: 03/24/2017 17:33 Time off Monitor: 03/24/2017 18:42 NST Duration: 69 NST INTERVENTIONS NST Interventions: PO Hydration; Reposition Patient Physician Notified NST: Simone BABY A: [id number] BABY A Movement : Present Contraction Frequency : 0 FHR Baseline : 135 Accelerations : 15X15 Variability : Moderate 6-25bpm NST Review: Meets Criteria for Reactive NST NST Review and Verified By : V Monk RN NST Results: Reactive NST REPORT Report Trigger: Send Report
== END 2017-03-24 18:51 | disposition home or self-care (01) ==
LOC: LC 16:56
PROVIDERS: ATTEND Obstetrics & Gynecology
DX: O47.9 False labor, unspecified (principal)
CPT/HCPCS: 59025; 80307; 81001; 84112

== ENCOUNTER 2017-03-31 15:41 | Outpatient (CLI) | payer MEDICAID ==
--- NOTE | 2017-03-31 16:43 | Non Stress Test Report ---
Non Stress Test Datetime Report Generated by CPN: 03/31/2017 16:42 DEMOGRAPHIC EGA NST: 34.0 INDICATION Indication for Study: Diabetes Mellitus; Ordered by Provider MONITORING Monitor Explained: Monitor Explained; Test Explained; Patient Verbalized Understanding Time on Monitor: 03/31/2017 15:57 Time off Monitor: 03/31/2017 16:38 NST Duration: 41 NST INTERVENTIONS NST Interventions: PO Hydration; Reposition Patient Physician Notified NST: J Wiley CNM BABY A: [id number] BABY A Movement : Present Contraction Frequency : 0 FHR Baseline : 130 Accelerations : 15X15 Decelerations : None Variability : Moderate 6-25bpm NST Review: Meets Criteria for Reactive NST NST Review and Verified By : RAUL Borrero Results: Reactive NST COMMENTS NST Comments: J Wiley CNM reviewed strip NST REPORT Report Trigger: Send Report
== END 2017-03-31 16:44 | disposition home or self-care (01) ==
LOC: LC 15:41
PROVIDERS: ATTEND Obstetrics & Gynecology
PROC: 4A1HXCZ Monitoring of Products of Conception, Cardiac Rate, External Approach (ICD-10-PCS; principal; 2017-03-31)
DX: O24.913 Unspecified diabetes mellitus in pregnancy, third trimester (principal); Z3A.34 34 weeks gestation of pregnancy
CPT/HCPCS: 59025

== ENCOUNTER 2017-04-03 01:06 | Outpatient (CLI) | payer MEDICAID ==
[2017-04-03 01:48] LABS: APPEARANCE,URINE SLIGHTLY-CLOUDY; BILIRUBIN,URINE NEGATIVE (NEGATIVE); GLUCOSE, URINE NEGATIVE (NEGATIVE); KETONES,URINE TRACE mg/dL (NEGATIVE); LEUKOCYTE ESTERASE,URINE NEGATIVE (NEGATIVE); NITRITE,URINE NEGATIVE (NEGATIVE); PROTEIN,URINE 30 mg/dL (NEGATIVE); URINE SPECIFIC GRAVITY 1.031
[2017-04-03 01:52] LABS: URINE BARBITURATES SCREEN NEGATIVE; URINE METHADONE SCREEN NEGATIVE; URINE OPIATES LOW NEGATIVE; URINE PHENCYCLIDINE SCREEN NEGATIVE
== END 2017-04-03 02:15 | disposition home or self-care (01) ==
LOC: LC 01:06
PROVIDERS: ATTEND Student in an Organized Health Care Education/Training Program
PROC: 4A1HXCZ Monitoring of Products of Conception, Cardiac Rate, External Approach (ICD-10-PCS; principal; 2017-04-03)
DX: O36.8130 Decreased fetal movements, third trimester, not applicable or unspecified (principal); Z3A.34 34 weeks gestation of pregnancy
CPT/HCPCS: 59025; 80307; 81001; 82962

== ENCOUNTER 2017-04-05 20:52 | Outpatient (CLI) | payer MEDICAID ==
--- NOTE | 2017-04-05 20:54 | Non Stress Test Report ---
Non Stress Test Datetime Report Generated by CPN: 04/05/2017 20:54 DEMOGRAPHIC EGA NST: 34.3 INDICATION Indication for Study: Decreased Movement MONITORING Monitor Explained: Monitor Explained; Test Explained; Patient Verbalized Understanding; Other Time on Monitor: 04/03/2017 01:26 Time off Monitor: 04/03/2017 02:08 NST Duration: 42 NST INTERVENTIONS NST Interventions: PO Hydration Physician Notified NST: Dr. Castelan BABY A: [id number] BABY A Movement : Present Contraction Frequency : 0 FHR Baseline : 130 Accelerations : 15X15 Decelerations : None Variability : Moderate 6-25bpm NST Review: Meets Criteria for Reactive NST NST Review and Verified By : Lyndon Verde RN NST Results: Reactive NST REPORT Report Trigger: Send Report
[2017-04-05 21:40] LABS: APPEARANCE,URINE SLIGHTLY-CLOUDY; BILIRUBIN,URINE NEGATIVE (NEGATIVE); GLUCOSE, URINE NEGATIVE (NEGATIVE); KETONES,URINE 20 mg/dL (NEGATIVE); LEUKOCYTE ESTERASE,URINE NEGATIVE (NEGATIVE); NITRITE,URINE NEGATIVE (NEGATIVE); PROTEIN,URINE NEGATIVE (NEGATIVE); URINE SPECIFIC GRAVITY 1.016
[2017-04-05 21:44] LABS: AMNISURE (ROM) NEGATIVE (NEGATIVE)
[2017-04-05 21:54] LABS: URINE BARBITURATES SCREEN NEGATIVE; URINE METHADONE SCREEN NEGATIVE; URINE OPIATES LOW NEGATIVE; URINE PHENCYCLIDINE SCREEN NEGATIVE
[2017-04-05] MEDS ORDERED: ACETAMINOPHEN 325 MG TABLET PO ONE (22:58)
[2017-04-05] MEDS ORDERED: ACETAMINOPHEN 325 MG TABLET ONE (23:01)
[2017-04-06 01:25] LABS: CHLAM PCR NOT DETECTED (NOT DETECT)
--- NOTE | 2017-04-06 01:54 | RADIOLOGY REPORT (SQ) ---
EXAM DESCRIPTION: U/S PROFILE W/O STRESS COMPLETED DATE/TIME: 04/06/2017 1:19 am REASON FOR STUDY: nonreactive nst . The patient is 36 weeks 0 days . COMPARISON: US OB 10/03/2016. TECHNIQUE: Limited moon-scale realtime and static images of the fetus to measure specified parameter s. LIMITATIONS: None. FINDINGS: HEART RATE: 135 beats per minute. POSTURE AND TONE: 2 points. MOVEMENT: 2 points. BREATHING MOVEMENT: 2 points. QUALITATIVE FATOUMATA: 2 points. IMPRESSION: BIOPHYSICAL PROFILE: 01/21. Trimester of : Third - 28 weeks to delivery COMMENT: BREATHING MOVEMENTS: 2 POINTS: PRESENT 0 POINTS: ABSENT MOTION: 2 POINTS: PRESENT 0 POINTS: ABSENT TONE: 2 POINTS: PRESENT 0 POINTS: ABSENT AMNIOTIC FLUID VOLUME: 2 POINTS: LARGEST POCKET GREATER THAN 2 CM DEPTH. 0 POINTS: NO POCKET OF 2 CM. TECHNICAL DOCUMENTATION: JOB ID: [id number] 2010 [employer]- All Rights Reserved
== END 2017-04-06 02:08 | disposition home or self-care (01) ==
LOC: LC 20:52
PROVIDERS: ATTEND Obstetrics & Gynecology
PROC: 4A1HXCZ Monitoring of Products of Conception, Cardiac Rate, External Approach (ICD-10-PCS; principal; 2017-04-05)
DX: O36.8130 Decreased fetal movements, third trimester, not applicable or unspecified (principal); Z3A.34 34 weeks gestation of pregnancy
CPT/HCPCS: 59025; 84112; 87210; 81001; 80307; 87491; 87591; 76819; J3490

== ENCOUNTER 2017-04-06 02:54 | Outpatient (CLI) | payer MEDICAID ==
[2017-04-06] MEDS ORDERED: METOCLOPRAMIDE HCL INJ/PF 10 MG/2 ML SDV ONE (03:26)
[2017-04-06] MEDS ORDERED: ONDANSETRON HCL INJ/PF 4 MG/2 ML SDV ONE (03:26)
[2017-04-06] MEDS ORDERED: NIFEDIPINE 10 MG CAPSULE ONE (03:26)
[2017-04-06] MEDS ORDERED: NIFEDIPINE 10 MG CAPSULE PO ONE (03:30)
[2017-04-06] MEDS ORDERED: ONDANSETRON HCL INJ/PF 4 MG/2 ML SDV IV ONE (03:30)
[2017-04-06] MEDS ORDERED: RINGERS SOLUTION,LACTATED 1,000 ML IV ONE (03:37)
--- NOTE | 2017-04-06 03:53 | Non Stress Test Report ---
Non Stress Test Datetime Report Generated by CPN: 04/06/2017 03:53 DEMOGRAPHIC EGA NST: 34.5 INDICATION Indication for Study: Ordered by Provider MONITORING Monitor Explained: Monitor Explained; Test Explained; Patient Verbalized Understanding Time on Monitor: 04/05/2017 21:28 Time off Monitor: 04/06/2017 01:34 NST Duration: 246 NST INTERVENTIONS NST Interventions: PO Hydration; IV Fluids; For Biophysical Profile; Oxytocin Challenge Test; Other Physician Notified NST: Dr. Dan BABY A Movement : Present Contraction Frequency : 3-5 FHR Baseline : 135 Accelerations : 15X15 Decelerations : None Variability : Moderate 6-25bpm NST Review: Meets Criteria for Reactive NST NST Review and Verified By : Urmila Navarro RN Results: Reactive NST COMMENTS NST Comments: BPP 8/8 NST REPORT Report Trigger: Send Report
[2017-04-06 03:58] LABS: ABSOLUTE EOSINOPHILS # (AUTO) 0.2 10^3/uL (0.0-0.6); ABSOLUTE LYMPHOCYTES (AUTO) 1.7 10^3/uL (0.5-4.7); ABSOLUTE MONOCYTES (AUTO) 0.9 10^3/uL (0.1-1.4); ABSOLUTE NEUT (AUTO) 6.9 10^3/uL (1.7-8.2); BASOPHILS % (AUTO) 0.2 % (0-2); EOSINOPHILS % (AUTO) 1.9 % (0-6); HEMATOCRIT 27.2 % (36.0-47.0); HEMOGLOBIN 8.8 g/dL (12.0-15.5); HGB HCT DIFFERENCE -0.8; LYMPHOCYTES % (AUTO) 17.9 % (13-45); MEAN CORPUSCULAR HEMOGLOBIN 22.7 pg (27.0-33.4); MEAN CORPUSCULAR HGB CONC 32.5 g/dL (32.0-36.0); MEAN CORPUSCULAR VOLUME 70 fl (80-97); MONOCYTES % (AUTO) 9.5 % (3-13); RED BLOOD COUNT 3.89 10^6/uL (3.72-5.28); RED CELL DISTRIBUTION WIDTH 14.5 % (11.5-14.0); SEGMENTED NEUTROPHILS % (AUTO) 70.5 % (42-78); WHITE BLOOD COUNT 9.8 10^3/uL (4.0-10.5)
[2017-04-06 04:10] LABS: ALANINE AMINOTRANSFERASE 23 U/L (9-52); ALBUMIN 3.2 g/dL (3.5-5.0); ALKALINE PHOSPHATASE 167 U/L (38-126); AMYLASE 59 U/L (30-110); ANION GAP 9 (5-19); ASPARTATE AMINO TRANSFERASE 17 U/L (14-36); BILIRUBIN,DIRECT 0.3 mg/dL (0.0-0.4); BILIRUBIN,TOTAL 0.7 mg/dL (0.2-1.3); BLOOD UREA NITROGEN 4 mg/dL (7-20); CALCIUM 8.9 mg/dL (8.4-10.2); CARBON DIOXIDE 21 mmol/L (22-30); CHLORIDE 108 mmol/L (98-107); CREATININE RESULT 0.42 mg/dL (0.52-1.25); GLUCOSE 71 mg/dL (75-110); LIPASE 32.7 U/L (23-300); POTASSIUM 4.2 mmol/L (3.6-5.0); TOTAL PROTEIN 6.2 g/dL (6.3-8.2)
== END 2017-04-06 04:41 | disposition home or self-care (01) ==
LOC: LC 02:54
PROVIDERS: ATTEND Obstetrics & Gynecology
PROC: 4A1HXCZ Monitoring of Products of Conception, Cardiac Rate, External Approach (ICD-10-PCS; principal; 2017-04-06)
DX: Z34.93 Encounter for supervision of normal pregnancy, unspecified, third trimester (principal)
CPT/HCPCS: 59025; 36415; 82962; 82150; 83690; 85025; 80053; J3490; J2405; J2765

== ENCOUNTER 2017-04-07 17:24 | Outpatient (CLI) | payer MEDICAID | END 2017-04-07 19:09 | disposition home or self-care (01) | LOC: LC 17:24 | PROVIDERS: ATTEND Student in an Organized Health Care Education/Training Program | PROC: 4A1HXCZ Monitoring of Products of Conception, Cardiac Rate, External Approach (ICD-10-PCS; principal; 2017-04-07) | DX: O47.03 False labor before 37 completed weeks of gestation, third trimester (principal); O24.419 Gestational diabetes mellitus in pregnancy, unspecified control; Z3A.35 35 weeks gestation of pregnancy | CPT/HCPCS: 59025 ==

== ENCOUNTER 2017-04-09 19:46 | Outpatient (CLI) | payer MEDICAID ==
[2017-04-09] MEDS ORDERED: RINGERS SOLUTION,LACTATED 1,000 ML IV ONE (20:32)
[2017-04-09] MEDS ORDERED: RINGERS SOLUTION,LACTATED 1,000 ML IV PRN (20:32)
[2017-04-09 21:15] LABS: URINE BARBITURATES SCREEN NEGATIVE; URINE METHADONE SCREEN NEGATIVE; URINE OPIATES LOW NEGATIVE; URINE PHENCYCLIDINE SCREEN NEGATIVE
[2017-04-09 21:30] LABS: APPEARANCE,URINE CLEAR; BILIRUBIN,URINE NEGATIVE (NEGATIVE); GLUCOSE, URINE NEGATIVE (NEGATIVE); KETONES,URINE NEGATIVE (NEGATIVE); LEUKOCYTE ESTERASE,URINE NEGATIVE (NEGATIVE); NITRITE,URINE NEGATIVE (NEGATIVE); PROTEIN,URINE NEGATIVE (NEGATIVE); URINE SPECIFIC GRAVITY 1.009
--- NOTE | 2017-04-14 11:39 | Non Stress Test Report ---
Non Stress Test Datetime Report Generated by CPN: 04/14/2017 11:38 DEMOGRAPHIC Test Number: 5 EGA NST: 35.2 EGA NST: 35.0 INDICATION Indication for Study: Ordered by Provider Indication for Study: Ordered by Provider Indication for Study (NST) Other: GDM MONITORING Monitor Explained: Monitor Explained; Test Explained; Patient Verbalized Understanding Monitor Explained: Monitor Explained; Test Explained; Patient Verbalized Understanding Time on Monitor: 04/09/2017 22:05 Time on Monitor: 04/07/2017 17:34 Time off Monitor: 04/09/2017 21:43 Time off Monitor: 04/07/2017 18:48 NST Duration: -22 NST Duration: 74 NST INTERVENTIONS NST Interventions: PO Hydration; IV Fluids NST Interventions: PO Hydration; Reposition Patient Physician Notified NST: Simone Physician Notified NST: Dr. Castelan BABY A: [id number] BABY A Movement : Present Contraction Frequency : irregular Contraction Frequency : x1 FHR Baseline : 140 FHR Baseline : 140 Accelerations : 15X15 Accelerations : 15X15 Decelerations : None Decelerations : None Variability : Moderate 6-25bpm Variability : Moderate 6-25bpm NST Review: Meets Criteria for Reactive NST NST Review: Meets Criteria for Reactive NST NST Review and Verified By : RAY Love NST Results: Reactive NST Results: Reactive NST REPORT Report Trigger: Send Report
== END 2017-04-09 22:02 | disposition home or self-care (01) ==
LOC: LC 19:46
PROVIDERS: ATTEND Obstetrics & Gynecology
PROC: 4A1HXCZ Monitoring of Products of Conception, Cardiac Rate, External Approach (ICD-10-PCS; principal; 2017-04-09)
DX: O47.03 False labor before 37 completed weeks of gestation, third trimester (principal); Z3A.35 35 weeks gestation of pregnancy
CPT/HCPCS: 59025; 80307; 81001; 87086

== ENCOUNTER 2017-04-14 12:51 | Outpatient (CLI) | payer MEDICAID ==
[2017-04-14 13:40] LABS: AMNISURE (ROM) NEGATIVE (NEGATIVE)
--- NOTE | 2017-04-14 14:37 | Non Stress Test Report ---
Non Stress Test Datetime Report Generated by CPN: 04/14/2017 14:36 DEMOGRAPHIC EGA NST: 36.0 INDICATION Indication for Study: Ordered by Provider Indication for Study (NST) Other: pt reports leaking MONITORING Monitor Explained: Monitor Explained; Test Explained; Patient Verbalized Understanding Time on Monitor: 04/14/2017 13:11 Time off Monitor: 04/14/2017 14:32 NST Duration: 81 NST INTERVENTIONS NST Interventions: PO Hydration Physician Notified NST: Whitfield BABY A Movement : Present Contraction Frequency : 0 FHR Baseline : 125 Accelerations : 15X15 Decelerations : None (Annotations: Data stored by CPN on behalf of user) Variability : Moderate 6-25bpm (Annotations: Data stored by CPN on behalf of user) NST Review: Meets Criteria for Reactive NST NST Review and Verified By : Lyndon Turk RN NST Results: Reactive NST REPORT Report Trigger: Send Report
[2017-04-14 14:52] LABS: ALANINE AMINOTRANSFERASE 22 U/L (9-52); ALBUMIN 3.6 g/dL (3.5-5.0); ALKALINE PHOSPHATASE 178 U/L (38-126); ANION GAP 11 (5-19); ASPARTATE AMINO TRANSFERASE 16 U/L (14-36); BILIRUBIN,DIRECT 0.4 mg/dL (0.0-0.4); BILIRUBIN,TOTAL 0.5 mg/dL (0.2-1.3); BLOOD UREA NITROGEN 5 mg/dL (7-20); CALCIUM 9.4 mg/dL (8.4-10.2); CARBON DIOXIDE 24 mmol/L (22-30); CHLORIDE 105 mmol/L (98-107); CREATININE RESULT 0.45 mg/dL (0.52-1.25); GLUCOSE 74 mg/dL (75-110); SODIUM 140.3 mmol/L (137-145); TOTAL PROTEIN 6.7 g/dL (6.3-8.2)
== END 2017-04-14 14:41 | disposition home or self-care (01) ==
LOC: LC 12:51
PROVIDERS: ATTEND Obstetrics & Gynecology
PROC: 4A1HXCZ Monitoring of Products of Conception, Cardiac Rate, External Approach (ICD-10-PCS; principal; 2017-04-14)
DX: O42.913 Preterm premature rupture of membranes, unspecified as to length of time between rupture and onset of labor, third trimester (principal); Z3A.36 36 weeks gestation of pregnancy
CPT/HCPCS: 36415; 59025; 80053; 82239; 84112

== ENCOUNTER 2017-04-30 17:20 | Outpatient (CLI) | payer MEDICAID ==
[2017-04-30 18:04] LABS: APPEARANCE,URINE CLEAR; BILIRUBIN,URINE NEGATIVE (NEGATIVE); GLUCOSE, URINE NEGATIVE (NEGATIVE); KETONES,URINE NEGATIVE (NEGATIVE); LEUKOCYTE ESTERASE,URINE NEGATIVE (NEGATIVE); NITRITE,URINE NEGATIVE (NEGATIVE); PROTEIN,URINE NEGATIVE (NEGATIVE); URINE SPECIFIC GRAVITY 1.005; UROBILINOGEN,URINE NEGATIVE mg/dL (<2.0)
[2017-04-30 18:21] LABS: URINE BARBITURATES SCREEN NEGATIVE; URINE METHADONE SCREEN NEGATIVE; URINE OPIATES LOW NEGATIVE; URINE PHENCYCLIDINE SCREEN NEGATIVE
--- NOTE | 2017-04-30 19:11 | Non Stress Test Report ---
Non Stress Test Datetime Report Generated by CPN: 04/30/2017 19:10 DEMOGRAPHIC EGA NST: 38.2 INDICATION Indication for Study: Other Indication for Study (NST) Other: LC MONITORING Monitor Explained: Monitor Explained; Test Explained; Patient Verbalized Understanding Time on Monitor: 04/30/2017 17:42 Time off Monitor: 04/30/2017 18:58 NST Duration: 76 NST INTERVENTIONS NST Interventions: Reposition Patient Physician Notified NST: Dr. López BABY A: [id number] BABY A Movement : Present Contraction Frequency : occasional FHR Baseline : 135 Accelerations : 15X15 Decelerations : None Variability : Moderate 6-25bpm NST Review: Meets Criteria for Reactive NST NST Review and Verified By : RAUL Coyle Results: Reactive NST REPORT Report Trigger: Send Report
== END 2017-04-30 19:06 | disposition home or self-care (01) ==
LOC: LC 17:20
PROVIDERS: ATTEND Obstetrics & Gynecology
PROC: 4A1HXCZ Monitoring of Products of Conception, Cardiac Rate, External Approach (ICD-10-PCS; principal; 2017-04-30)
DX: Z34.93 Encounter for supervision of normal pregnancy, unspecified, third trimester (principal); Z3A.38 38 weeks gestation of pregnancy; Z87.891 Personal history of nicotine dependence
CPT/HCPCS: 59025; 80307; 81005

== ENCOUNTER 2017-05-04 17:33 | Outpatient (CLI) | payer MEDICAID ==
--- NOTE | 2017-05-04 18:15 | Non Stress Test Report ---
Non Stress Test Datetime Report Generated by CPN: 05/04/2017 18:15 DEMOGRAPHIC EGA NST: 38.6 INDICATION Indication for Study: Ordered by Provider VITAL SIGNS Temperature - NST: 97.7 Pulse - NST: 73 RESP - NST: 14 NBPSYS NST: 103 NBPDIA NST: 68 MONITORING Monitor Explained: Monitor Explained; Test Explained; Patient Verbalized Understanding Time on Monitor: 05/04/2017 17:53 Time off Monitor: 05/04/2017 18:15 NST Duration: 22 NST INTERVENTIONS NST Interventions: None Physician Notified NST: Dr Etienne Physician Notified NST: Dr Etienne BABY A: [id number] BABY A Movement : Present Contraction Frequency : denies FHR Baseline : 135 Accelerations : 15X15 Decelerations : None Variability : Moderate 6-25bpm NST Review: Meets Criteria for Reactive NST NST Review and Verified By : Tabitha Murillo RNC NST Results: Reactive NST REPORT Report Trigger: Send Report
[2017-05-04 19:20] LABS: APPEARANCE,URINE SLIGHTLY-CLOUDY; BILIRUBIN,URINE NEGATIVE (NEGATIVE); GLUCOSE, URINE NEGATIVE (NEGATIVE); KETONES,URINE TRACE mg/dL (NEGATIVE); LEUKOCYTE ESTERASE,URINE NEGATIVE (NEGATIVE); NITRITE,URINE NEGATIVE (NEGATIVE); PROTEIN,URINE 30 mg/dL (NEGATIVE); URINE SPECIFIC GRAVITY 1.031
[2017-05-04 19:34] LABS: URINE BARBITURATES SCREEN NEGATIVE; URINE METHADONE SCREEN NEGATIVE; URINE PHENCYCLIDINE SCREEN NEGATIVE
[2017-05-04 19:36] LABS: AMNISURE (ROM) NEGATIVE (NEGATIVE)
[2017-05-04 19:45] LABS: URINE OPIATES LOW UNCONFIRMED POSITIVE
== END 2017-05-04 19:54 | disposition home or self-care (01) ==
LOC: LC 17:33
PROVIDERS: ATTEND Obstetrics & Gynecology Gynecology
PROC: 4A1HXCZ Monitoring of Products of Conception, Cardiac Rate, External Approach (ICD-10-PCS; principal; 2017-05-04)
DX: O47.1 False labor at or after 37 completed weeks of gestation (principal); Z3A.38 38 weeks gestation of pregnancy
CPT/HCPCS: 59025; 84112; 36415; 81005; 80307; G6056; 80361

== ENCOUNTER 2017-05-05 12:10 | Outpatient (CLI) | payer MEDICAID ==
--- NOTE | 2017-05-05 13:30 | Non Stress Test Report ---
Non Stress Test Datetime Report Generated by CPN: 05/05/2017 13:29 DEMOGRAPHIC EGA NST: 39.0 INDICATION Indication for Study: Diabetes Mellitus; Ordered by Provider VITAL SIGNS Temperature - NST: 97.5 Pulse - NST: 72 RESP - NST: 16 NBPSYS NST: 94 NBPDIA NST: 51 MONITORING Monitor Explained: Monitor Explained; Test Explained; Patient Verbalized Understanding Time on Monitor: 05/05/2017 12:25 Time off Monitor: 05/05/2017 13:27 NST Duration: 62 NST INTERVENTIONS NST Interventions: PO Hydration; Reposition Patient Physician Notified NST: Dr Castelan BABY A: [id number] BABY A Movement : Present Contraction Frequency : rare FHR Baseline : 130 Accelerations : 15X15 Decelerations : None Variability : Moderate 6-25bpm NST Review: Meets Criteria for Reactive NST NST Review and Verified By : Tabitha Murillo [facility] NST Results: Reactive NST REPORT Report Trigger: Send Report
== END 2017-05-05 13:40 | disposition home or self-care (01) ==
LOC: LC 12:10
PROVIDERS: ATTEND Student in an Organized Health Care Education/Training Program
DX: O47.1 False labor at or after 37 completed weeks of gestation (principal); Z3A.39 39 weeks gestation of pregnancy; O24.913 Unspecified diabetes mellitus in pregnancy, third trimester
CPT/HCPCS: 59025

== ENCOUNTER 2017-05-07 10:38 | Outpatient (CLI) | payer MEDICAID ==
--- NOTE | 2017-05-07 11:56 | Non Stress Test Report ---
Non Stress Test Datetime Report Generated by CPN: 05/07/2017 11:56 DEMOGRAPHIC EGA NST: 39.2 INDICATION Indication for Study: Diabetes Mellitus VITAL SIGNS Temperature - NST: 98.1 Pulse - NST: 80 RESP - NST: 18 NBPSYS NST: 94 NBPDIA NST: 56 MONITORING Monitor Explained: Monitor Explained; Test Explained; Patient Verbalized Understanding Time on Monitor: 05/07/2017 10:51 Time off Monitor: 05/07/2017 11:48 NST Duration: 57 NST INTERVENTIONS NST Interventions: PO Hydration; Reposition Patient Physician Notified NST: K Benítez CNM BABY A: [id number] BABY A Movement : Present Contraction Frequency : x0 FHR Baseline : 130 Accelerations : 15X15 Decelerations : None Variability : Moderate 6-25bpm NST Review: Meets Criteria for Reactive NST NST Review and Verified By : Kita Cox RNC NST Results: Reactive NST REPORT Report Trigger: Send Report
== END 2017-05-07 11:56 | disposition home or self-care (01) ==
LOC: LC 10:38
PROVIDERS: ATTEND Obstetrics & Gynecology
PROC: 4A1HXCZ Monitoring of Products of Conception, Cardiac Rate, External Approach (ICD-10-PCS; principal; 2017-05-07)
DX: O24.419 Gestational diabetes mellitus in pregnancy, unspecified control (principal); Z3A.39 39 weeks gestation of pregnancy
CPT/HCPCS: 59025

== ENCOUNTER 2017-05-09 10:25 | Outpatient (CLI) | payer MEDICAID ==
[2017-05-09 11:10] LABS: APPEARANCE,URINE SLIGHTLY-CLOUDY; BILIRUBIN,URINE NEGATIVE (NEGATIVE); GLUCOSE, URINE NEGATIVE (NEGATIVE); KETONES,URINE NEGATIVE (NEGATIVE); LEUKOCYTE ESTERASE,URINE NEGATIVE (NEGATIVE); NITRITE,URINE NEGATIVE (NEGATIVE); PROTEIN,URINE NEGATIVE (NEGATIVE); URINE SPECIFIC GRAVITY 1.012; UROBILINOGEN,URINE NEGATIVE mg/dL (<2.0)
[2017-05-09 11:23] LABS: URINE BARBITURATES SCREEN NEGATIVE; URINE METHADONE SCREEN NEGATIVE; URINE OPIATES LOW NEGATIVE; URINE PHENCYCLIDINE SCREEN NEGATIVE
--- NOTE | 2017-05-12 06:17 | Non Stress Test Report ---
Non Stress Test Datetime Report Generated by CPN: 05/12/2017 06:16 DEMOGRAPHIC EGA NST: 39.4 INDICATION Indication for Study: Decreased Movement MONITORING Monitor Explained: Monitor Explained; Test Explained; Patient Verbalized Understanding Time on Monitor: 05/09/2017 10:44 Time off Monitor: 05/09/2017 12:31 NST Duration: 107 NST INTERVENTIONS NST Interventions: PO Hydration; Reposition Patient Physician Notified NST: Dr. Dan BABY A: [id number] BABY A Movement : Present Contraction Frequency : x2 FHR Baseline : 130 Accelerations : 15X15 Decelerations : None Variability : Moderate 6-25bpm NST Review: Meets Criteria for Reactive NST NST Review and Verified By : RAUL Cordova Results: Reactive NST REPORT Report Trigger: Send Report
== END 2017-05-09 12:41 | disposition home or self-care (01) ==
LOC: LC 10:25
PROVIDERS: ATTEND Obstetrics & Gynecology
PROC: 4A1HXCZ Monitoring of Products of Conception, Cardiac Rate, External Approach (ICD-10-PCS; principal; 2017-05-09)
DX: O47.1 False labor at or after 37 completed weeks of gestation (principal); O36.8130 Decreased fetal movements, third trimester, not applicable or unspecified; Z3A.39 39 weeks gestation of pregnancy
CPT/HCPCS: 59025; 80307; 81005

== ENCOUNTER 2017-06-12 15:10 | Emergency (ER) | payer MEDICAID ==
[2017-06-12] MEDS ORDERED: DIPH/PERTUSS(ACELL)/TETANUS VAC/PF 0.5 ML SYR (>=10YO) IM ONE (18:05)
--- NOTE | 2017-06-12 18:10 | ER Document Report ---
ED Extremity Problem, Lower - General Chief Complaint: Foot Pain Stated Complaint: RIGHT FOOT PAIN Time Seen by Provider: 06/12/17 16:52 Mode of Arrival: Ambulatory Information source: Patient Notes: Patient is a 32-year-old black female comes emergency room complaining of having a puncture wound to the bottom of her right foot. Patient states she was in flip-flops or made of rubber on 05 June and stepped on a nail that went through to the ball of her right foot. She pulled out it was a little efren nail but she did not come to the emergency room. Patient states that she decided tonight to come to the emergency room get her tetanus shot. TRAVEL OUTSIDE OF THE [place] IN LAST 30 DAYS: No - HPI Patient complains to provider of: Injury Location: Foot Occurred: Other - 7 days ago Where: [place]doors Onset/Duration: Sudden, Better Quality of pain: No pain Severity: Mild Pain Level: 1 Context: Wearing shoes Recent injury: Yes Associated symptoms: denies: Chest pain, Chills, Dizzy, Fainting, Fever, [place] a crack, [place] a pop, Hurts to breath, Painful ambulation, Rapid heart rate, Seizure, Short of breath, Sweaty, Unable to bear weight, Weak, Other Exacerbated by: Nothing Relieved by: Nothing - Related Data Allergies/Adverse Reactions: No Known Allergies Allergy (Verified 06/12/17 15:14) Past Medical History - General Information source: Patient - Social History Smoking Status: Never Smoker Cigarette use (# per day): No Chew tobacco use (# tins/day): No Smoking Education Provided: No Frequency of alcohol use: None Drug Abuse: None Family History: Reviewed & Not Pertinent Pulmonary Medical History: Reports: Hx Asthma Renal/ Medical History: Reports: Hx Kidney Stones. Denies: Hx Peritoneal Dialysis Past Surgical History: Reports: Hx Abdominal Surgery, Hx Gynecologic Surgery - LEEP for dysplasia, ectopic surgery, Hx Oral Surgery Review of Systems - Review of Systems EENT: No symptoms reported Cardiovascular: No symptoms reported Respiratory: No symptoms reported Gastrointestinal: No symptoms reported Genitourinary: No symptoms reported Female Genitourinary: No symptoms reported Musculoskeletal: No symptoms reported Skin: Other - Puncture wound bottom right foot Hematologic/Lymphatic: No symptoms reported Neurological/Psychological: No symptoms reported -: Yes All other systems reviewed and negative Physical Exam - Vital signs Vitals: Vital signs were left out of the original chart prior to me seeing patient discharge her. However triage vital signs were done a 3:28 PM. Temp is 98.7 pulse was 77 blood pressure 112/77 respiratory rate is 17 satting 100% on room air. She had nonlabored respirations.t Interpretation: Other - General General appearance: Appears well In distress: None - Respiratory Respiratory status: No respiratory distress Chest status: Nontender Breath sounds: Normal Chest palpation: Normal - Cardiovascular Rhythm: Regular Heart sounds: Normal auscultation Murmur: No - Extremities General upper extremity: Normal inspection, Normal ROM General lower extremity: Nontender, Normal color, Normal ROM, Normal strength, Normal temperature, Normal weight bearing Foot: Nontender, Puncture wound, Other - Examination patient's foot as stated from the complaint patient had stepped on a nail going through rubber flip- flops. Patient stated that was efren when examination of the ball of the foot on the right side showed that there was a puncture wound to that area further inspection and illumination next to the skin with flashlight showed that there was still possible piece of metal left superficially in the callus portion of the foot. Patient has full range of motion with all her toes she has good cap refill in the nailbeds of all the toes of the right foot good dorsalis pedal pulse. She really has minimal tenderness to the area with pressure applied to the spot where the puncture wound was. There is no apparent erythema or sign of infection at this time. - Skin Skin Temperature: Warm Skin Moisture: Dry Skin Color: Normal, [place], Other - As stated examination of the foot area and the skin show that there is no sign of erythema or infection currently. There is no warmth or change of temperature from 1 foot to the other. There is felt a possible breeze portion of metal at this location. And we will attempt to remove it. Course - Transfer of Care Notes: 06/12/17 18:14 I informed patient of the possibility she has been on Cipro. However after seeing the wound and no erythematous been 7 days I discussed the case with Dr. Joshua and we have decided we will write her for some Cipro tell her that unless it turns red and warm not to take the Cipro because it does cross over into the breast milk if she continues to breast-feed. At this time though should be necessary for her to take the Cipro we will suggest pumping and dumping. And then she can follow-up with her refrigeration insulator to see if it needs to be carried out further. Procedure note there was not an area where I could document a foreign body removal from the foot. As stated there was a puncture wound to the ball of right foot there was a raised rough area that felt like a piece of metal possibly I illuminated it under light from the autoscope and could see that there was a particle of nail in the foot. We used alcohol and Betadine to clean the area and then wiped again with alcohol. I attempted removal which is an 18-gauge needle however the piece Moving around it were not able to get a hold of it with splinter forceps. At one point we got a little too deep and patient jerked her foot so we decided to go ahead and on the area. I took the I &D kit with 1% lidocaine with a small needle injected into the area of the foreign body waited approximately 3 minutes and then took the #11 blade scalpel put a small cut into the callus area of the foot I was able to take the splinter tweezers and pull out the foreign body completely. I reexamined under illumination again and noticed with the help of the nurse that there was no more foreign body. This was most incidents where if we removed a good and great if not it was okay as well. We did confirm removal. Again because of the rubber shoes and the puncture wound Cipro is the recommended antibiotic of choice for Pseudomonas however he spent 7 days and there is not an appearance of any type of infection. We will have patient take the antibiotics with her at any time if it turns red or swollen she can start those and pump and dump. Discharge - Discharge Clinical Impression: History of retained foreign body fully removed Foreign body in foot Qualifiers: Encounter type: initial encounter Laterality: right Qualified Code(s): S90.851A - Superficial foreign body, right foot, initial encounter Condition: Good Disposition: HOME, SELF-CARE Instructions: Puncture Wound ([facility]) Additional Instructions: I have looked up Cipro and it is 1 of the antibiotics that does cross into the breast milk. At this time with there not been an apparent infection and almost a week out I believe it is safe enough to just monitor the site to make sure of no infection further from here on. Should there become reddened area warm to touch would suggest starting the Cipro orally and return to ER for a recheck. If you take the antibiotic you need to pump and dump if you are still breast- feeding. But it needs to be reevaluated by another provider. Presently he may soak the foot in warm soapy water in a clean base and. Do not soak it in a bathtub. Again should you have any concerns or problems return to ER for recheck. Prescriptions: Ciprofloxacin HCl [Cipro 500 mg Tablet] 500 mg PO BID #20 tablet
== END 2017-06-12 18:40 | disposition home or self-care (01) ==
LOC: ER 15:10
PROC: 0JCQ0ZZ Extirpation of Matter from Right Foot Subcutaneous Tissue and Fascia, Open Approach (ICD-10-PCS; principal; 2017-06-12)
DX: S90.851A Superficial foreign body, right foot, initial encounter (principal); M79.671 Pain in right foot; W45.0XXA Nail entering through skin, initial encounter
CPT/HCPCS: 90471; 90715; 99283

== ENCOUNTER 2018-01-07 18:21 | Emergency (ER) | payer SELFPAY ==
--- NOTE | 2018-01-07 19:40 | ER Document Report ---
ED General - General Chief Complaint: Abdominal Pain Stated Complaint: ABDOMINAL PAIN Time Seen by Provider: 01/07/18 19:20 Mode of Arrival: Ambulatory Information source: Patient Notes: Patient is a 32-year-old female who presents with chief complaint of left lower quadrant pain. Patient reports that she recently found out she was via home test. Patient is a . Patient reports that she has had two procedures similar to D&C as they thought that she was having an ectopic . Patient reports that this pain is similar to those episodes. Patient reports nausea, denies vomiting, has had several small amounts of diarrhea over the last few days. Patient denies any fever, or vaginal bleeding, reports urinary frequency. TRAVEL OUTSIDE OF THE [place] IN LAST 30 DAYS: No - Related Data Allergies/Adverse Reactions: No Known Allergies Allergy (Verified 01/07/18 18:22) Past Medical History - General Information source: Patient - Social History Smoking Status: Never Smoker Frequency of alcohol use: None Drug Abuse: None Family History: Reviewed & Not Pertinent Pulmonary Medical History: Reports: Hx Asthma Renal/ Medical History: Reports: Hx Kidney Stones. Denies: Hx Peritoneal Dialysis Past Surgical History: Reports: Hx Abdominal Surgery, Hx Gynecologic Surgery - LEEP for dysplasia, ectopic surgery, Hx Oral Surgery Review of Systems - Review of Systems Constitutional: No symptoms reported EENT: No symptoms reported Cardiovascular: No symptoms reported Respiratory: No symptoms reported Gastrointestinal: See HPI Genitourinary: See HPI Female Genitourinary: No symptoms reported Musculoskeletal: No symptoms reported Skin: No symptoms reported Hematologic/Lymphatic: No symptoms reported Neurological/Psychological: No symptoms reported Physical Exam - Vital signs Vitals: Temp Pulse Resp BP Pulse Ox 98.6 F 85 16 109/71 100 01/07/18 18:27 01/07/18 18:27 01/07/18 18:27 01/07/18 18:27 01/07/18 18:27 - Notes Notes: PHYSICAL EXAMINATION: GENERAL: Well-appearing, well-nourished and in no acute distress. HEAD: Atraumatic, normocephalic. EYES: Pupils equal round and reactive to light, extraocular movements intact, conjunctiva are normal. ENT: Nares patent, oropharynx clear without exudates. Moist mucous membranes. NECK: Normal range of motion, supple without lymphadenopathy LUNGS: Breath sounds clear to auscultation bilaterally and equal. No wheezes rales or rhonchi. HEART: Regular rate and rhythm without murmurs ABDOMEN: Soft, nondistended abdomen. Tenderness to palpation to left lower quadrant in the right lower quadrant. No guarding, no rebound. No masses appreciated. Female : deferred Musculoskeletal: Normal range of motion, no pitting or edema. No cyanosis. NEUROLOGICAL: Cranial nerves grossly intact. Normal speech, normal gait. Normal sensory, motor exams PSYCH: Normal mood, normal affect. SKIN: Warm, Dry, normal turgor, no rashes or lesions noted. Course - Re-evaluation Re-evalutation: CBC, comprehensive metabolic panel and urinalysis are all unremarkable. Quantitative hCG is 3999. Transvaginal ultrasound shows a intrauterine gestational sac measuring approximately 5 weeks. No evidence of ectopic or ovarian torsion. Patient will be discharged home with prescription for Zofran as she reports this is the only thing that has worked for her with previous pregnancies. Patient will be encouraged to follow-up with [facility] or the health department to establish care. Patient encouraged to return to the emergency department should she have worsening abdominal pain, vomiting, diarrhea or fever. - Vital Signs Vital signs: Temp Pulse Resp BP Pulse Ox 98.6 F 85 16 109/71 100 01/07/18 18:27 01/07/18 18:27 01/07/18 18:27 01/07/18 18:27 01/07/18 18:27 - Laboratory Result Diagrams: 01/07/18 20:00 01/07/18 20:00 Laboratory results interpreted by me: 01/07/18 01/07/18 20:00 20:00 Hgb 11.3 L Hct 35.6 L MCV 70 L MCH 22.3 L MCHC 31.7 L RDW 15.2 H Beta HCG, Quant 3999.90 H Discharge - Discharge Clinical Impression: Left lower quadrant abdominal pain of unknown etiology Qualifiers: Weeks of gestation: less than 8 weeks Qualified Code(s): Z3A.01 - Less than 8 weeks gestation of Condition: Stable Disposition: HOME, SELF-CARE Additional Instructions: You are . care is best started as early in as possible. If you're unsure about continuing this , you should discuss this with your physician or with mobile disc jockey at [facility]. You should take only medications approved by your physician. Acetaminophen can safely be taken for minor pains. As a rule, medication for chronic conditions such as asthma or seizures can safely be continued. You should discuss with the physician every medicine you take. Any regular exercise program can be continued. Talk to your physician, however, before engaging in competitive or demanding sports. Your workup today was normal. Your ultrasound shows a approximate 5 week gestation age sac in the uterus. No sign of any tubal . It is too early to see anything specific on the fetus. Please call and make an appointment with your OB provider for further follow-up. Return to the emergency department if you develop worsening abdominal pain, vaginal bleeding, shortness of breath, or fever. Prescriptions: Ondansetron [Zofran Odt 4 mg Tablet] 1 - 2 tab PO Q4H PRN #15 tab.rapdis PRN Reason: For Nausea/Vomiting Referrals: [facility] [Provider Group] - Follow up as needed
[2018-01-07] MEDS ORDERED: ONDANSETRON 4 MG TAB.RAPDIS PO ONE (19:45)
[2018-01-07 20:26] LABS: ABSOLUTE EOSINOPHILS # (AUTO) 0.2 10^3/uL (0.0-0.6); ABSOLUTE LYMPHOCYTES (AUTO) 2.1 10^3/uL (0.5-4.7); ABSOLUTE MONOCYTES (AUTO) 0.8 10^3/uL (0.1-1.4); ABSOLUTE NEUT (AUTO) 5.8 10^3/uL (1.7-8.2); BASOPHILS % (AUTO) 0.2 % (0-2); EOSINOPHILS % (AUTO) 2.2 % (0-6); HEMATOCRIT 35.6 % (36.0-47.0); HEMOGLOBIN 11.3 g/dL (12.0-15.5); LYMPHOCYTES % (AUTO) 23.6 % (13-45); MEAN CORPUSCULAR HEMOGLOBIN 22.3 pg (27.0-33.4); MEAN CORPUSCULAR HGB CONC 31.7 g/dL (32.0-36.0); MEAN CORPUSCULAR VOLUME 70 fl (80-97); MONOCYTES % (AUTO) 9.1 % (3-13); PLATELET COUNT 278 10^3/uL (150-450); RED BLOOD COUNT 5.06 10^6/uL (3.72-5.28); RED CELL DISTRIBUTION WIDTH 15.2 % (11.5-14.0); SEGMENTED NEUTROPHILS % (AUTO) 64.9 % (42-78); TOTAL CELLS COUNTED % (AUTO) 100 %; WHITE BLOOD COUNT 8.9 10^3/uL (4.0-10.5)
[2018-01-07 20:27] LABS: APPEARANCE,URINE CLEAR; BILIRUBIN,URINE NEGATIVE (NEGATIVE); COLOR,URINE YELLOW; GLUCOSE, URINE NEGATIVE (NEGATIVE); KETONES,URINE NEGATIVE (NEGATIVE); LEUKOCYTE ESTERASE,URINE NEGATIVE (NEGATIVE); NITRITE,URINE NEGATIVE (NEGATIVE); PROTEIN,URINE NEGATIVE (NEGATIVE); URINE SPECIFIC GRAVITY 1.023; UROBILINOGEN,URINE NEGATIVE mg/dL (<2.0)
[2018-01-07 20:46] LABS: ALANINE AMINOTRANSFERASE 23 U/L (9-52); ALKALINE PHOSPHATASE 69 U/L (38-126); ANION GAP 11 (5-19); ASPARTATE AMINO TRANSFERASE 18 U/L (14-36); BILIRUBIN,DIRECT 0.2 mg/dL (0.0-0.4); BILIRUBIN,TOTAL 0.3 mg/dL (0.2-1.3); BLOOD UREA NITROGEN 9 mg/dL (7-20); CALCIUM 9.7 mg/dL (8.4-10.2); CARBON DIOXIDE 22 mmol/L (22-30); CHLORIDE 107 mmol/L (98-107); GLUCOSE 90 mg/dL (75-110); POTASSIUM 4.5 mmol/L (3.6-5.0); SODIUM 139.5 mmol/L (137-145); TOTAL PROTEIN 7.1 g/dL (6.3-8.2)
--- NOTE | 2018-01-07 21:20 | RADIOLOGY REPORT (SQ) ---
EXAM DESCRIPTION: U/S OB TRANSVAGINAL W/O DOP COMPLETED DATE/TIME: 01/07/2018 9:03 pm REASON FOR STUDY: , LLQ pain, hx of DNC x2 COMPARISON: None. TECHNIQUE: Transvaginal static and realtime grayscale images acquired of the pelvis. Additional pedro cted spectral and color Doppler images recorded. All images stored on PACs. bHCG: Pending. CLINICAL DATES: 5 weeks 1 day LIMITATIONS: None. FINDINGS: FETUS: Not visualized. There is a fluid collection within the uterus with a double decid ual reaction, consistent with a gestational sac. No yolk sac or pole identified at this time. ULTRASOUND EGA: 5 weeks 1 day ULTRASOUND FRANCK: 09/08/2018 CRL: Not visualized SUBCHORIONIC BLEED: No. SIZE OF BLEED: Not applicable. UTERUS: No masses. No anomalies. CERVICAL LENGTH: Not applicable. Less than 6 weeks. RIGHT ADNEXA: Ovary not identified. No adnexal free fluid. No adnexal masses. LEFT ADNEXA: Normal ovary with normal vascular flow. No adnexal free fluid. No adnexal masses. FREE FLUID: None. OTHER: No other significant finding. IMPRESSION: Intrauterine gestation with gestational sac only at this time. No yolk sac or thien e identified. EGA 5 weeks 1 day Trimester of : First - 0 to 13 weeks. TECHNICAL DOCUMENTATION: JOB ID: [id number] [employer]- All Rights Reserved rev-10/31 Reading location - IP/workstation name: [email or web address]
[2018-01-07] MEDS ORDERED: ONDANSETRON ODT 4 MG TAB (6 TAB/ER DISP) PO PRN (21:55)
[2018-01-07 22:23] VITALS: BP 119/72
== END 2018-01-07 22:21 | disposition home or self-care (01) ==
LOC: ER 18:21
DX: O26.891 Other specified pregnancy related conditions, first trimester (principal); R10.32 Left lower quadrant pain; R10.813 Right lower quadrant abdominal tenderness; R10.814 Left lower quadrant abdominal tenderness; R11.0 Nausea; R19.7 Diarrhea, unspecified; R35.0 Frequency of micturition; O99.511 Diseases of the respiratory system complicating pregnancy, first trimester; J45.909 Unspecified asthma, uncomplicated; Z3A.01 Less than 8 weeks gestation of pregnancy; Z87.442 Personal history of urinary calculi; Z87.59 Personal history of other complications of pregnancy, childbirth and the puerperium
CPT/HCPCS: 99284; 36415; 84702; 85025; 80053; 81001; 76817; S0119

== ENCOUNTER 2018-01-16 16:37 | Emergency (ER) | payer SELFPAY ==
[2018-01-16 16:44] VITALS: BP 106/52
--- NOTE | 2018-01-16 17:01 | ER Document Report ---
ED GI/ - General Chief Complaint: Abdominal Pain Stated Complaint: LOWER STOMACH PAIN Time Seen by Provider: 01/16/18 16:54 Notes: 32-year-old female to emergency department complaining of left lower quadrant pain. Patient thinks that she is approximately 6 weeks . Denies any vaginal bleeding. Had an ultrasound performed here 1 week ago. Ultrasound showed a decidual reaction but no yolk sac or pole. Patient states that her pain in the left lower quadrant is getting worse. This is her 10th . Last live was 8 months ago. TRAVEL OUTSIDE OF THE [place] IN LAST 30 DAYS: No - HPI Patient complains to provider of: Abdominal pain, Pelvic pain. No: Vaginal discharge, Vaginal pain Onset: Yesterday Timing/Duration: Gradual, Worse - Related Data Allergies/Adverse Reactions: No Known Allergies Allergy (Verified 01/16/18 16:40) Past Medical History - General Information source: Patient - Social History Smoking Status: Never Smoker Chew tobacco use (# tins/day): No Frequency of alcohol use: None Drug Abuse: None Lives with: Spouse/Significant other Family History: Reviewed & Not Pertinent Patient has suicidal ideation: No Patient has homicidal ideation: No Pulmonary Medical History: Reports: Hx Asthma Renal/ Medical History: Reports: Hx Kidney Stones. Denies: Hx Peritoneal Dialysis Past Surgical History: Reports: Hx Abdominal Surgery, Hx Gynecologic Surgery - LEEP for dysplasia, ectopic surgery, Hx Oral Surgery Review of Systems - Review of Systems Constitutional: No symptoms reported EENT: No symptoms reported Cardiovascular: No symptoms reported Respiratory: No symptoms reported Gastrointestinal: No symptoms reported, Abdominal pain. denies: Diarrhea, Nausea, Vomiting Genitourinary: denies: Dysuria, Discharge, Flank pain, Urgency Female Genitourinary: , Painful intercourse. denies: Vaginal bleeding, Vaginal odor Musculoskeletal: No symptoms reported Skin: No symptoms reported Hematologic/Lymphatic: No symptoms reported Neurological/Psychological: No symptoms reported Physical Exam - Vital signs Vitals: Temp Pulse Resp BP Pulse Ox 98.4 F 72 16 106/52 L 100 01/16/18 16:42 01/16/18 16:42 01/16/18 16:42 01/16/18 16:42 01/16/18 16:42 Interpretation: Normal - General General appearance: Appears well, Alert - HEENT Head: Normocephalic, Atraumatic Eyes: Normal Pupils: PERRL - Respiratory Respiratory status: No respiratory distress Chest status: Nontender Breath sounds: Normal Chest palpation: Normal - Cardiovascular Rhythm: Regular Heart sounds: Normal auscultation Murmur: No - Abdominal Inspection: Normal Distension: No distension Bowel sounds: Normal Tenderness: Tender - Mild tenderness left lower quadrant with no guarding or rebound. Organomegaly: No organomegaly - Back Back: Normal, Nontender - Extremities General upper extremity: Normal inspection, Nontender, Normal color, Normal ROM , Normal temperature General lower extremity: Normal inspection, Nontender, Normal color, Normal ROM , Normal temperature, Normal weight bearing. No: Elo's sign - Neurological Neuro grossly intact: Yes Cognition: Normal Orientation: AAOx4 Romina Coma Scale Eye Opening: Spontaneous Romina Coma Scale Verbal: Oriented Romina Coma Scale Motor: Obeys Commands Maljamar Coma Scale Total: 15 Speech: Normal Motor strength normal: LUE, RUE, LLE, RLE Sensory: Normal - Psychological Associated symptoms: Normal affect, Normal mood - Skin Skin Temperature: Warm Skin Moisture: Dry Skin Color: Normal Course - Re-evaluation Re-evalutation: 01/16/18 17:01 Ultrasound results reviewed from previous visit. Had a decidual reaction but no pole and no yolk sac. Will repeat the ultrasound at this time, get urinalysis and reassess. 01/16/18 19:11 Laboratory 01/16/18 17:03 Urine Color YELLOW Urine Appearance SLIGHTLY-CLOUDY Urine pH 5.0 Ur Specific [place] 1.021 Urine Protein NEGATIVE Urine Glucose (UA) NEGATIVE Urine Ketones TRACE H Urine Blood NEGATIVE Urine Nitrite NEGATIVE Urine Bilirubin NEGATIVE Urine Urobilinogen NEGATIVE Ur Leukocyte Esterase NEGATIVE Urine WBC (Auto) 1 Urine RBC (Auto) 0 U Hyaline Cast (Auto) 1 Squamous Epi Cells Auto 4 Urine Mucus (Auto) OCC Urine Ascorbic Acid NEGATIVE Obstetrics Ultrasound 01/16/18 16:58 IMPRESSION: LIVING INTRAUTERINE . EGA 6 weeks 0 days. Findings as described. Trimester of : First - 0 to 13 weeks. Patient has an intrauterine measuring 6 weeks and 0 days. Urine does not show any signs of infection. There is a small subchorionic bleed which could be causing some pain. Will DC at this time - Vital Signs Vital signs: Temp Pulse Resp BP Pulse Ox 98.4 F 72 16 106/52 L 100 01/16/18 16:42 01/16/18 16:42 08/03/18 16:42 01/16/18 16:42 01/16/18 16:42 - Laboratory Laboratory results interpreted by me: 01/16/18 17:03 Urine Ketones TRACE H Discharge - Discharge Clinical Impression: Pelvic pain affecting in first trimester, antepartum Condition: Good Disposition: HOME, SELF-CARE Instructions: Pelvic Pain in and Round Ligament Pain ([facility]) Additional Instructions: Please follow-up with your regular doctor [facility]OURC[facility] CONSULTANT for further evaluation and treatment. Tylenol only for pain. Return in 24 hours if symptoms are getting worse or for any other concerns.
[2018-01-16 17:29] LABS: APPEARANCE,URINE SLIGHTLY-CLOUDY; BILIRUBIN,URINE NEGATIVE (NEGATIVE); COLOR,URINE YELLOW; GLUCOSE, URINE NEGATIVE (NEGATIVE); KETONES,URINE TRACE mg/dL (NEGATIVE); LEUKOCYTE ESTERASE,URINE NEGATIVE (NEGATIVE); NITRITE,URINE NEGATIVE (NEGATIVE); PROTEIN,URINE NEGATIVE (NEGATIVE); URINE SPECIFIC GRAVITY 1.021; UROBILINOGEN,URINE NEGATIVE mg/dL (<2.0)
--- NOTE | 2018-01-16 18:56 | RADIOLOGY REPORT (SQ) ---
EXAM DESCRIPTION: U/S OB TRANSVAGINAL W/O DOP COMPLETED DATE/TIME: 01/16/2018 6:39 pm REASON FOR STUDY: Worsening pain in the left lower quadrant COMPARISON: 01/07/2018 TECHNIQUE: Transvaginal static and realtime grayscale images acquired of the pelvis. Additional pedro cted spectral and color Doppler images recorded. All images stored on PACs. bHCG: Not available. CLINICAL DATES: LMP 12/02/2017. 6 weeks. LIMITATIONS: None. FINDINGS: FETUS: Living intrauterine . ULTRASOUND EGA: 6 weeks 0 days ULTRASOUND FRANCK: 09/11/2018 CRL: 0.36 cm FHR: 112 beats per minute. SUBCHORIONIC BLEED: Yes SIZE OF BLEED: Small UTERUS: No masses or anomalies. 10.5 x 7 x 7.7 cm. CERVICAL LENGTH: 3.2 cm. Closed. RIGHT ADNEXA: Ovary not seen. No adnexal free fluid. No adnexal masses. LEFT ADNEXA: Ovary not seen. No adnexal free fluid. No adnexal masses. FREE FLUID: Small amount of free fluid in the posterior cul-de-sac. OTHER: No other significant finding. IMPRESSION: LIVING INTRAUTERINE . EGA 6 weeks 0 days. Findings as described. Trimester of : First - 0 to 13 weeks. TECHNICAL DOCUMENTATION: JOB ID: [id number] [employer]- All Rights Reserved rev-10/31 Reading location - IP/workstation name: [email or web address]
== END 2018-01-16 19:53 | disposition home or self-care (01) ==
LOC: ER 16:37
DX: O26.91 Pregnancy related conditions, unspecified, first trimester (principal); R10.2 Pelvic and perineal pain; Z3A.01 Less than 8 weeks gestation of pregnancy; Z87.442 Personal history of urinary calculi
CPT/HCPCS: 76817; 81001; 99284

== ENCOUNTER 2018-02-18 12:14 | Emergency (ER) | payer MEDICAID ==
--- NOTE | 2018-02-18 12:57 | ER Document Report ---
ED Respiratory Problem - General Chief Complaint: Chest Congestion Stated Complaint: BREATHING ISSUES Time Seen by Provider: 02/18/18 12:33 Mode of Arrival: Ambulatory Information source: Patient Notes: 32-year-old female presents to ED for complaint of cough cold congestion wheezing. She states she does not have an albuterol inhaler. She states she is also 11 weeks . Her son is also in here for the same symptoms. She states several of the other children also have the same symptoms. TRAVEL OUTSIDE OF THE [place] IN LAST 30 DAYS: No COUNTRY TRAVELED TO/FROM: [facility] Patient complains to provider of: Other - History of asthma with upper respiratory infection and 11 weeks Onset: Other - 3 days Duration: Continuous Initiating Event: URI Quality of pain: No pain Severity: None Pain Level: Denies Context: Hx asthma Short of Breath: Mild Cough: Nonproductive Associated symptoms: Congestion, Cough, PND, Runny nose, Sinus pain/pressure. denies: Fever Similar symptoms previously: Yes Recently seen / treated by doctor: No - Related Data Allergies/Adverse Reactions: No Known Allergies Allergy (Verified 02/18/18 12:16) Past Medical History - General Information source: Patient - Social History Smoking Status: Never Smoker Cigarette use (# per day): No Chew tobacco use (# tins/day): No Smoking Education Provided: No Frequency of alcohol use: None Drug Abuse: None Lives with: Family Family History: Reviewed & Not Pertinent Patient has suicidal ideation: No Patient has homicidal ideation: No - Past Medical History Cardiac Medical History: Reports: None Pulmonary Medical History: Reports: Hx Asthma EENT Medical History: Reports: None Neurological Medical History: Reports: None Endocrine Medical History: Reports: None Renal/ Medical History: Reports: Hx Kidney Stones Malignancy Medical History: Reports: None GI Medical History: Reports: None Musculoskeletal Medical History: Reports None Skin Medical History: Reports None Psychiatric Medical History: Reports: None Traumatic Medical History: Reports: None Infectious Medical History: Reports: None Past Surgical History: Reports: Hx Abdominal Surgery, Hx Gynecologic Surgery - LEEP for dysplasia, ectopic surgery, Hx Oral Surgery Review of Systems - Review of Systems Constitutional: No symptoms reported EENT: Nose discharge, Sinus pressure, Sinus discharge Cardiovascular: No symptoms reported Respiratory: Cough, Short of breath, Wheezing Gastrointestinal: No symptoms reported Genitourinary: No symptoms reported Female Genitourinary: Musculoskeletal: No symptoms reported Skin: No symptoms reported Hematologic/Lymphatic: No symptoms reported Neurological/Psychological: No symptoms reported -: Yes All other systems reviewed and negative Physical Exam - Vital signs Vitals: Temp Pulse Resp BP Pulse Ox 98.2 F 94 14 119/92 H 99 02/18/18 12:19 02/18/18 12:19 02/18/18 12:19 02/18/18 12:19 02/18/18 12:19 Interpretation: Normal - General General appearance: Appears well, Alert - HEENT Head: Normocephalic, Atraumatic Eyes: Normal Pupils: PERRL Ears: Normal External canal: Normal Tympanic membrane: Normal Sinus: Normal Nasal: Purulent discharge, Swelling Mouth/Lips: Normal Mucous membranes: Normal Pharynx: Post nasal drainage Neck: Normal - Respiratory Respiratory status: No respiratory distress. No: Respiratory distress, Tachypnea Chest status: Nontender Breath sounds: Nonproductive cough. No: Decreased air movement, Rales, Rhonchi , Stridor, Wheezing Chest palpation: Normal - Cardiovascular Rhythm: Regular Heart sounds: Normal auscultation Murmur: No - Abdominal Inspection: Normal Distension: No distension Bowel sounds: Normal Tenderness: Nontender Organomegaly: No organomegaly - Back Back: Normal, Nontender - Extremities General upper extremity: Normal inspection, Nontender, Normal color, Normal ROM , Normal temperature General lower extremity: Normal inspection, Nontender, Normal color, Normal ROM , Normal temperature, Normal weight bearing. No: Elo's sign - Neurological Neuro grossly intact: Yes Cognition: Normal Orientation: AAOx4 Oxford Coma Scale Eye Opening: Spontaneous Oxford Coma Scale Verbal: Oriented Romina Coma Scale Motor: Obeys Commands Oxford Coma Scale Total: 15 Speech: Normal Motor strength normal: LUE, RUE, LLE, RLE Sensory: Normal - Psychological Associated symptoms: Normal affect, Normal mood - Skin Skin Temperature: Warm Skin Moisture: Dry Skin Color: Normal Course - Re-evaluation Re-evalutation: 02/18/18 12:59 Assessment consistent with an upper respiratory infection. Patient states she has asthma and would like an albuterol inhaler because often her call will turn into asthma. She states she does not have a follow-up appointment at this time. She has been instructed to call her doctor today and get a follow-up appointment due to the fact that she is 11 weeks . Patient verbalized understanding and agreement with treatment plan. Patient was written a prescription for an albuterol inhaler. - Vital Signs Vital signs: Temp Pulse Resp BP Pulse Ox 98.2 F 94 16 114/72 99 02/18/18 12:19 02/18/18 13:01 02/18/18 13:01 02/18/18 13:01 02/18/18 12:19 Discharge - Discharge Clinical Impression: URI (upper respiratory infection) Qualifiers: URI type: unspecified URI Qualified Code(s): J06.9 - Acute upper respiratory infection, unspecified Condition: Stable Disposition: HOME, SELF-CARE Additional Instructions: UPPER RESPIRATORY ILLNESS: You have a viral infection of the respiratory passages -- a "cold." This common infection causes nasal congestion, drainage, and often sore throat and cough. It is highly contagious. The disease usually lasts about 10 to 14 days. There is no "cure" for the viral infection -- it must run its course. If there is a complication, such as bacterial infection in the nose, sinuses, middle ear, or bronchial tubes, antibiotics may be required. The antibiotics won't affect the virus. Drink plenty of fluids. A humidifier may help. An expectorant medication or decongestant may make you more comfortable. Use acetaminophen or ibuprofen for fever or aches. See the doctor if fever persists over two days, if there is any significant worsening of your symptoms, or if you simply fail to improve as expected. BRONCHOSPASM: You have tightness in the bronchial tubes, called bronchospasm. This often occurs with bronchial infections. Allergies, inhaled chemicals, and polluted or cold air can also provoke bronchospasm. It's more likely in patients with asthma in the family. Emergency treatment of bronchospasm may include adrenaline shots or bronchodilator aerosol. You may feel lightheaded and have a rapid pulse for an hour or two. Rest and get plenty of fluids. At home, we'll treat you with a bronchodilator inhaler. Antibiotics and corticosteroids may be required for some patients. Until you recover, avoid chemical fumes, dusts, pollens, and exercising in very cold or dry air. If you smoke, stop now!! If you develop a fever, increased wheezing, chest pain, or severe shortness of breath, you should contact the doctor immediately. COUGH-SUPPRESSANT & EXPECTORANT MEDICATION: You are to use a cough medication as needed for relief of symptoms. This medicine is a combination of an expectorant (to make the mucous thinner and more easily "coughed up") and a cough suppressant (to reduce the frequency of coughing). The cough-suppressant medicine is related to narcotics. You may experience mild nausea and sleepiness. Some patients who are very sensitive to narcotics may have stomach pain from this medicine. Taking the medicine with food reduces these side effects. Do not drive or work with machinery until you know how this medicine affects you. The expectorant should have no side effects. Iodine-containing expectorants (such as organidin) should not be taken by persons with active thyroid disease unless approved by your doctor. Call the doctor if you develop shortness of breath, hives, rash, itching, lightheadedness, or severe nausea and vomiting. INHALED BRONCHODILATORS: You have received a treatment of and/or prescription for an inhaled bronchodilator -- a medication which stimulates the airways in the lung to dilate. This improves the flow of air in asthma, bronchitis, and emphysema. These medicines have some similarity to adrenaline, and can cause similar side effects: shakiness, racing heart, and a sense of nervousness. These side effects decrease with time. Contact your doctor if these side effects are severe. Do not over-use the medicine. Too-frequent use of the inhaler may make it ineffective. Call your doctor if the inhaler is not controlling your symptoms at the prescribed doses. USE OF ACETAMINOPHEN (Tylenol): Acetaminophen may be taken for pain relief or fever control. It's much safer than aspirin, offering a wider range of "safe" dosages. It is safe during . Some brand names are Tylenol, Panadol, Datril, Anacin 3, Tempra, and Liquiprin. Acetaminophen can be repeated every four hours. The following are maximum recommended dosages: >89 pounds or adults 650 mg to 900 mg Acetaminophen can be repeated every four hours. Maximum dose not to exceed 4000 mg a day. FOLLOW-UP CARE: If you have been referred to a physician for follow-up care, call the physician s office for an appointment as you were instructed or within the next two days. If you experience worsening or a significant change in your symptoms, notify the physician immediately or return to the Emergency Department at any time for re-evaluation. Prescriptions: Albuterol Sulfate [Proair HFA Inhalation Aerosol 8.5 gm MDI] 2 puff IH Q4H PRN # 1 mdi PRN Reason: Forms: Elevated Blood Pressure, Return to Work Referrals: VALENTINA BOWERS MD [ACTIVE STAFF] - Follow up as needed
[2018-02-18 13:03] VITALS: BP 114/72
== END 2018-02-18 13:06 | disposition home or self-care (01) ==
LOC: ER 12:14
DX: O99.511 Diseases of the respiratory system complicating pregnancy, first trimester (principal); J06.9 Acute upper respiratory infection, unspecified; J45.909 Unspecified asthma, uncomplicated; J34.89 Other specified disorders of nose and nasal sinuses; O26.891 Other specified pregnancy related conditions, first trimester; R05 Cough; R09.82 Postnasal drip; Z3A.11 11 weeks gestation of pregnancy
CPT/HCPCS: 99283

== ENCOUNTER 2018-03-11 18:30 | Emergency (ER) | payer MEDICAID ==
--- NOTE | 2018-03-11 18:57 | ER Document Report ---
ED Medical Screen (RME) - General Chief Complaint: Vaginal Bleeding Stated Complaint: VAGINAL BLEEDING, URINATION DISCOLORED Time Seen by Provider: 03/11/18 18:49 Mode of Arrival: Ambulatory Information source: Patient Notes: 33-year-old female G 10 P8 at approximately 14 weeks gestation presents with vaginal spotting after intercourse. Patient denies abdominal pain, passing of clots. She does report urinary urgency. Patient has been receiving care at the health department and reports an ultrasound which showed an IUP. I have greeted and performed a rapid initial assessment of this patient. A comprehensive ED assessment and evaluation of the patient, analysis of test results and completion of medical decision making process we will be contacted by additional ED providers. PHYSICAL EXAMINATION: GENERAL: Well-appearing, well-nourished and in no acute distress. HEAD: Atraumatic, normocephalic. EYES: Pupils equal round extraocular movements intact, conjunctiva are normal. ENT: Nares patent NECK: Normal range of motion LUNGS: No respiratory distress Musculoskeletal: Normal range of motion NEUROLOGICAL: Normal speech, normal gait. PSYCH: Normal mood, normal affect. SKIN: Warm, Dry, normal turgor, no rashes or lesions noted. TRAVEL OUTSIDE OF THE [place] IN LAST 30 DAYS: No COUNTRY TRAVELED TO/FROM: [facility] Onset: Last week Onset/Duration: Gradual Quality of pain: No pain Associated Symptoms: Vaginal bleeding Exacerbated by: Other - Sexual activity Relieved by: Denies Similar symptoms previously: No Recently seen / treated by doctor: No - Related Data Smoking: Non-smoker Frequency of alcohol use: None Drug Abuse: None Allergies/Adverse Reactions: No Known Allergies Allergy (Verified 02/18/18 12:16) Past Medical History Pulmonary Medical History: Reports: Hx Asthma Renal/ Medical History: Reports: Hx Kidney Stones. Denies: Hx Peritoneal Dialysis Past Surgical History: Reports: Hx Abdominal Surgery, Hx Gynecologic Surgery - LEEP for dysplasia, ectopic surgery, Hx Oral Surgery - Immunizations History of Influenza Vaccine for 03/2017 - 08/2017 Season: Yes Influenza Administration Date for 03/2017 - 08/2017 Season: 04/16/17 Physical Exam - Vital signs Vitals: Temp Pulse Resp BP Pulse Ox 97.9 F 87 14 125/75 99 03/11/18 18:37 03/11/18 18:37 03/11/18 18:37 03/11/18 18:37 03/11/18 18:37 Course - Vital Signs Vital signs: Temp Pulse Resp BP Pulse Ox 97.9 F 87 14 125/75 99 03/11/18 18:37 03/11/18 18:37 03/11/18 18:37 03/11/18 18:37 03/11/18 18:37
[2018-03-11 19:45] LABS: APPEARANCE,URINE SLIGHTLY-CLOUDY; BILIRUBIN,URINE NEGATIVE (NEGATIVE); COLOR,URINE YELLOW; GLUCOSE, URINE NEGATIVE (NEGATIVE); KETONES,URINE NEGATIVE (NEGATIVE); LEUKOCYTE ESTERASE,URINE NEGATIVE (NEGATIVE); NITRITE,URINE NEGATIVE (NEGATIVE); PROTEIN,URINE NEGATIVE (NEGATIVE); URINE SPECIFIC GRAVITY 1.026
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
[2018-03-11 20:44] LABS: ABSOLUTE EOSINOPHILS # (AUTO) 0.2 10^3/uL (0.0-0.6); ABSOLUTE LYMPHOCYTES (AUTO) 1.9 10^3/uL (0.5-4.7); ABSOLUTE MONOCYTES (AUTO) 0.6 10^3/uL (0.1-1.4); ABSOLUTE NEUT (AUTO) 5.8 10^3/uL (1.7-8.2); BASOPHILS % (AUTO) 0.3 % (0-2); EOSINOPHILS % (AUTO) 2.7 % (0-6); HEMATOCRIT 32.8 % (36.0-47.0); HEMOGLOBIN 10.5 g/dL (12.0-15.5); MEAN CORPUSCULAR HEMOGLOBIN 22.3 pg (27.0-33.4); MEAN CORPUSCULAR VOLUME 70 fl (80-97); MONOCYTES % (AUTO) 6.9 % (3-13); PLATELET COUNT 222 10^3/uL (150-450); RED BLOOD COUNT 4.71 10^6/uL (3.72-5.28); RED CELL DISTRIBUTION WIDTH 14.5 % (11.5-14.0); SEGMENTED NEUTROPHILS % (AUTO) 68.1 % (42-78); TOTAL CELLS COUNTED % (AUTO) 100 %; WHITE BLOOD COUNT 8.5 10^3/uL (4.0-10.5)
[2018-03-11 21:03] LABS: ALANINE AMINOTRANSFERASE 40 U/L (9-52); ALBUMIN 3.9 g/dL (3.5-5.0); ALKALINE PHOSPHATASE 110 U/L (38-126); ANION GAP 9 (5-19); ASPARTATE AMINO TRANSFERASE 37 U/L (14-36); BILIRUBIN,DIRECT 0.3 mg/dL (0.0-0.4); BILIRUBIN,TOTAL 0.4 mg/dL (0.2-1.3); BLOOD UREA NITROGEN 7 mg/dL (7-20); CALCIUM 9.6 mg/dL (8.4-10.2); CARBON DIOXIDE 23 mmol/L (22-30); CHLORIDE 105 mmol/L (98-107); GLUCOSE 89 mg/dL (75-110); POTASSIUM 3.9 mmol/L (3.6-5.0); SODIUM 137.4 mmol/L (137-145); TOTAL PROTEIN 7.5 g/dL (6.3-8.2)
[2018-03-11 21:10] LABS: EPITHELIALS (WET MOUNT) 3+ EPITHELIALS SEEN; RBCS (WET MOUNT) NO RBCS SEEN; T.VAGINALIS (WET MOUNT) NO TRICHOMONAS SEEN; WBCS (WET MOUNT) RARE WBCS SEEN; YEAST (WET MOUNT) NO YEAST SEEN
[2018-03-11 22:36] LABS: CHLAM PCR NOT DETECTED (NOT DETECT); GON PCR NOT DETECTED (NOT DETECT)
--- NOTE | 2018-03-11 23:29 | RADIOLOGY REPORT (SQ) ---
EXAM DESCRIPTION: US LIMITED COMPLETED DATE/TME: 03/11/2018 20:30 CLINICAL HISTORY: 33 years Female, vaginal spotting Comparison: None. TECHNIQUE/LIMITATION: Targeted OB sonogram for requested parameters only. FINDINGS: Cardiac activity: 149-bpm. Placenta: Anterior. Homogeneous 1.3 x 0.8 x 0.6 cm, avascular sonolucency of the central placenta surrounded by otherwise normal placenta probably due to a developmental intervillous thrombus/clot. No placenta previa. Presentation: Breech. Cervical length: 2.3-cm. Closed appearance. Other: Actively peristalsing bowel of the left adnexa. IMPRESSION: Targeted OB sonogram for requested parameters
[2018-03-11 23:57] VITALS: BP 105/67
== END 2018-03-12 | disposition home or self-care (01) ==
LOC: ER 18:30
DX: O26.892 Other specified pregnancy related conditions, second trimester (principal); R30.0 Dysuria
CPT/HCPCS: 36415; 76815; 80053; 81001; 84702; 85025; 87086; 87210; 87491; 87591; 99284

== ENCOUNTER 2018-07-14 17:50 | Emergency (ER) | payer MEDICAID ==
[2018-07-14 17:55] VITALS: BP 108/57
--- NOTE | 2018-07-14 18:16 | ER Document Report ---
HPI - HPI Time Seen by Provider: 07/14/18 18:11 Pain Level: 3 Notes: Patient is a 34-year-old female approx 32 weeks who presents to the ED complaining of nasal congestion/discharge, dry nonproductive cough, fever, body ache 3 days. Patient states that she is still eating and drinking without difficulties, but does have a decreased p.o. intake. Her child had flu this past week. She is still urinating normally having normal bowel movements. Patient has been using some [id number] meds for symptoms. She denies any significant past medical history including cardiopulmonary history and immunocompromised conditions. Patient denies any smoking or IV drug use. Patient requesting work note. Denies any current headache, neck pain, sore throat, chest pain, palpitations, syncope, shortness of breath, wheeze, dyspnea, abdominal pain, nausea/vomiting/diarrhea, urinary retention, dysuria, hematuria, or rash. - ROS Systems Reviewed and Negative: Yes All other systems reviewed and negative - NEURO Neurology: REPORTS: Headache - RESPIRATORY Respiratory: REPORTS: Coughing - REPRODUCTIVE Reproductive: REPORTS: : Past Medical History - Social History Smoking Status: Never Smoker Family History: Reviewed & Not Pertinent Patient has suicidal ideation: No Patient has homicidal ideation: No Pulmonary Medical History: Reports: Hx Asthma Renal/ Medical History: Reports: Hx Kidney Stones. Denies: Hx Peritoneal Dialysis Past Surgical History: Reports: Hx Abdominal Surgery, Hx Gynecologic Surgery - LEEP for dysplasia, ectopic surgery, Hx Oral Surgery Vertical Provider Document - CONSTITUTIONAL Agree With Documented VS: Yes Notes: PHYSICAL EXAMINATION: GENERAL: Well-appearing, well-nourished and in no acute distress. A&Ox4. Answers questions appropriately. Moves comfortably w/o notable distress HEAD: Atraumatic, normocephalic. EYES: Pupils equal round and reactive to light, extraocular movements intact, sclera anicteric, conjunctiva are normal. ENT: EAC clear b/l. TM's intact b/l without erythema, fluid, or perforation. Nares patent and with clear discharge. oropharynx no erythema without exudates. No tonsilar hypertrophy without erythema or exudate. No palatine shift. Uvula midline. No tongue protrusion. No drooling, hoarseness, or airway compromise. Moist mucous membranes. No sinus tenderness. NECK: Normal range of motion, supple without lymphadenopathy. No rigidity/meningismus. LUNGS: Breath sounds clear to auscultation bilaterally and equal. No wheezes rales or rhonchi. No retractions HEART: Regular rate and rhythm without murmurs, rubs, gallops. ABDOMEN: Soft, nontender, nondistended abdomen. No guarding, no rebound. No masses appreciated. Normal bowel sounds present. No CVA tenderness bilaterally. abdomen. NEUROLOGICAL: Normal speech, normal gait. Normal sensory, motor exams PSYCH: Normal mood, normal affect. SKIN: Warm, Dry, normal turgor, no rashes or lesions noted. - INFECTION CONTROL TRAVEL OUTSIDE OF THE [place] IN LAST 30 DAYS: No COUNTRY TRAVELED TO/FROM: [place] Course - Re-evaluation Re-evalutation: 07/14/18 18:12 Patient is an afebrile, well-hydrated, 33-year-old female who presents to the ED with acute URI, suspect influenza. Vitals are acceptable. PE is otherwise unremarkable. No labs or imaging warranted at this time based on H&P. Patient has no significant cardiopulmonary or immunocompromised medical conditions. Patient's lungs are clear to auscultation bilaterally without tachycardia, hypoxia, or tachypnea. Patient is tolerating p.o. without any difficulties. Thoroughly reviewed the risks, benefits, potential side effects, estimated cost without insurance with patient. After thorough review, patient accepted Tamiflu at this time. Low suspicion for any meningitis, sepsis, peritonsillar/pharyngeal abscess, respiratory compromise, severe dehydration, or other emergent systemic condition at this time. Patient is aware this condition can change from initial presentation and she needs to monitor symptoms closely. Conservative measures otherwise for symptoms. Recheck with your PCM/OBGYN in 3- 5 days. Return to the ED with any worsening/concerning symptoms otherwise as reviewed in discharge. Patient is in agreement. - Vital Signs Vital signs: Temp Pulse Resp BP Pulse Ox 98.1 F 85 18 108/57 L 100 07/14/18 17:53 07/14/18 17:53 07/14/18 17:53 07/14/18 17:53 07/14/18 17:53 Discharge - Discharge Clinical Impression: Acute URI Condition: Stable Disposition: HOME, SELF-CARE Additional Instructions: Maintain adequate fluid intake Take meds as directed tylenol as needed over the counter cold medication as needed for symptoms Humidified air may help Wash your hands regularly Wear a mask when coughing F/u: with your PCM/OBGYN in 3-5 days for a recheck Return to the ED with any fever, worsening pain, chest pain, palpitations, syncope, worsening KENDRICK, neck pain/stiffness, shortness of breath, wheezing, drooling, trouble swallowing/breathing, abdominal pain, n/v/d, rash, or worsening/concerning symptoms otherwise. Prescriptions: Oseltamivir Phosphate [Tamiflu 75 mg Capsule] 75 mg PO BID #10 capsule Forms: Return to Work Referrals: [facility] [Provider Group] - Follow up as needed
== END 2018-07-14 18:20 | disposition home or self-care (01) ==
LOC: ER 17:50
DX: J06.9 Acute upper respiratory infection, unspecified (principal); R09.81 Nasal congestion; R09.89 Other specified symptoms and signs involving the circulatory and respiratory systems; R05 Cough; R50.9 Fever, unspecified; M79.10 Myalgia, unspecified site; R63.0 Anorexia; J45.909 Unspecified asthma, uncomplicated
CPT/HCPCS: 99283

== ENCOUNTER 2018-07-30 13:02 | Outpatient (CLI) | payer MEDICAID | END 2018-07-30 13:50 | disposition home or self-care (01) | LOC: LC 13:02 | PROVIDERS: ATTEND Obstetrics & Gynecology | PROC: 4A1HXCZ Monitoring of Products of Conception, Cardiac Rate, External Approach (ICD-10-PCS; principal; 2018-07-30) | DX: O47.03 False labor before 37 completed weeks of gestation, third trimester (principal); Z3A.34 34 weeks gestation of pregnancy | CPT/HCPCS: 59025 ==

== ENCOUNTER 2018-08-08 02:48 | Outpatient (CLI) | payer MEDICAID ==
[2018-08-08 03:47] LABS: APPEARANCE,URINE CLEAR; BILIRUBIN,URINE NEGATIVE (NEGATIVE); COLOR,URINE STRAW; GLUCOSE, URINE NEGATIVE (NEGATIVE); KETONES,URINE NEGATIVE (NEGATIVE); LEUKOCYTE ESTERASE,URINE NEGATIVE (NEGATIVE); NITRITE,URINE NEGATIVE (NEGATIVE); PROTEIN,URINE NEGATIVE (NEGATIVE); URINE SPECIFIC GRAVITY 1.006; UROBILINOGEN,URINE NEGATIVE mg/dL (<2.0)
[2018-08-08 04:02] LABS: URINE AMPHETAMINES SCREEN NEGATIVE; URINE BARBITURATES SCREEN NEGATIVE; URINE BENZODIAZEPINES SCREEN NEGATIVE; URINE COCAINE SCREEN NEGATIVE; URINE MARIJUANA (THC) SCREEN NEGATIVE; URINE METHADONE SCREEN NEGATIVE; URINE PHENCYCLIDINE SCREEN NEGATIVE
--- NOTE | 2018-08-08 04:58 | Non Stress Test Report ---
Non Stress Test Datetime Report Generated by CPN: 08/08/2018 04:58 DEMOGRAPHIC Test Number: 3 EGA NST: 35.4 EGA NST: 34.2 INDICATION Indication for Study: Ordered by Provider VITAL SIGNS Temperature - NST: 97.7 Pulse - NST: 76 RESP - NST: 16 RESP - NST: 16 NBPSYS NST: 107 NBPDIA NST: 70 URINE RESULTS Urine Protein, NST: Negative Urine Ketones - NST: Negative Urine Glucose - NST: Negative Urine Blood - NST: Negative MONITORING Monitor Explained: Monitor Explained; Test Explained; Patient Verbalized Understanding Monitor Explained: Monitor Explained; Test Explained; Patient Verbalized Understanding Time on Monitor: 08/08/2018 03:01 Time on Monitor: 07/30/2018 13:19 Time off Monitor: 08/08/2018 04:29 Time off Monitor: 07/30/2018 13:42 NST Duration: 88 NST Duration: 23 NST INTERVENTIONS NST Interventions: PO Hydration NST Interventions: PO Hydration; Reposition Patient Physician Notified NST: N Danial CNGlory BABY A: [id number] BABY A Movement : Decreased Movement : Present Contraction Frequency : irreg Contraction Frequency : irregular FHR Baseline : 120 FHR Baseline : 145 (Annotations: Data stored by [facility] on behalf of user) Accelerations : 15X15 Accelerations : 15X15 Decelerations : None Decelerations : None Variability : Moderate 6-25bpm Variability : Moderate 6-25bpm NST Review: Meets Criteria for Reactive NST NST Review: Meets Criteria for Reactive NST NST Review and Verified By : Tika Eng RN NST Review and Verified By : Dharmesh Valderrama RN NST Results: Reactive NST Results: Reactive NST REPORT Report Trigger: Send Report
== END 2018-08-08 04:43 | disposition home or self-care (01) ==
LOC: LC 02:48
PROVIDERS: ATTEND Obstetrics & Gynecology
PROC: 4A1HXCZ Monitoring of Products of Conception, Cardiac Rate, External Approach (ICD-10-PCS; principal; 2018-08-08)
DX: O47.03 False labor before 37 completed weeks of gestation, third trimester (principal); O36.8130 Decreased fetal movements, third trimester, not applicable or unspecified; Z3A.35 35 weeks gestation of pregnancy
CPT/HCPCS: 59025; 80307; 81001

== ENCOUNTER 2018-08-12 18:07 | Outpatient (CLI) | payer MEDICAID ==
[2018-08-12 18:58] LABS: T.VAGINALIS (WET MOUNT) NO TRICHOMONAS SEEN; YEAST (WET MOUNT) NO YEAST SEEN
[2018-08-12 18:59] LABS: BACTERIA (WET MOUNT) 4+ BACTERIA SEEN; EPITHELIALS (WET MOUNT) 4+ EPITHELIALS SEEN; RBCS (WET MOUNT) NO RBCS SEEN; WBCS (WET MOUNT) 1+ WBCS SEEN
[2018-08-12 19:07] LABS: APPEARANCE,URINE CLEAR; BILIRUBIN,URINE NEGATIVE (NEGATIVE); COLOR,URINE YELLOW; GLUCOSE, URINE NEGATIVE (NEGATIVE); KETONES,URINE NEGATIVE (NEGATIVE); LEUKOCYTE ESTERASE,URINE NEGATIVE (NEGATIVE); NITRITE,URINE NEGATIVE (NEGATIVE); PROTEIN,URINE NEGATIVE (NEGATIVE); URINE SPECIFIC GRAVITY 1.021; UROBILINOGEN,URINE NEGATIVE mg/dL (<2.0)
[2018-08-12 19:25] LABS: HEMATOCRIT 28.1 % (36.0-47.0); HEMOGLOBIN 9.1 g/dL (12.0-15.5); MEAN CORPUSCULAR HEMOGLOBIN 22.3 pg (27.0-33.4); MEAN CORPUSCULAR HGB CONC 32.2 g/dL (32.0-36.0); MEAN CORPUSCULAR VOLUME 69 fl (80-97); PLATELET COUNT 186 10^3/uL (150-450); RED BLOOD COUNT 4.06 10^6/uL (3.72-5.28); RED CELL DISTRIBUTION WIDTH 13.9 % (11.5-14.0); WHITE BLOOD COUNT 9.3 10^3/uL (4.0-10.5)
[2018-08-12 19:32] LABS: INTERNATIONAL RATION (INR) 0.94
[2018-08-12 19:33] LABS: PARTIAL THROMBOPLASTIN TIME 29.1 SEC (23.5-35.8)
[2018-08-12 19:39] LABS: URINE AMPHETAMINES SCREEN NEGATIVE; URINE BARBITURATES SCREEN NEGATIVE; URINE BENZODIAZEPINES SCREEN NEGATIVE; URINE COCAINE SCREEN NEGATIVE; URINE MARIJUANA (THC) SCREEN NEGATIVE; URINE METHADONE SCREEN NEGATIVE; URINE PHENCYCLIDINE SCREEN NEGATIVE
--- NOTE | 2018-08-12 20:23 | Non Stress Test Report ---
Non Stress Test Datetime Report Generated by CPN: 08/12/2018 20:22 DEMOGRAPHIC Test Number: 4 EGA NST: 36.1 INDICATION Indication for Study: Ordered by Provider URINE RESULTS Urine Protein, NST: Negative Urine Ketones - NST: Negative Urine Glucose - NST: Negative Urine Blood - NST: Negative MONITORING Monitor Explained: Monitor Explained; Test Explained; Patient Verbalized Understanding Time on Monitor: 08/12/2018 19:40 Time off Monitor: 08/12/2018 20:15 NST Duration: 35 NST INTERVENTIONS NST Interventions: PO Hydration; IV Fluids; Reposition Patient Physician Notified NST: Dr. Younger BABY A: [id number] BABY A Movement : Present Contraction Frequency : x2 FHR Baseline : 135 Accelerations : 15X15 Decelerations : None Variability : Moderate 6-25bpm NST Review: Meets Criteria for Reactive NST NST Review and Verified By : NDoyle RN NST REPORT Report Trigger: Send Report
[2018-08-12 20:31] LABS: CHLAM PCR NOT DETECTED (NOT DETECT); GON PCR NOT DETECTED (NOT DETECT)
[2018-08-12 22:40] LABS: FETAL RBC COUNT 0
[2018-08-12 22:42] LABS: KB INTERPRETATION NEGATIVE (NEGATIVE)
--- NOTE | 2018-08-12 22:44 | RADIOLOGY REPORT (SQ) ---
EXAM DESCRIPTION: US LIMITED COMPLETED DATE/TME: 08/12/2018 00:00 CLINICAL HISTORY: 33 years Female, r/o out abruption slight trauma to abd, Comparison:03/11/2018 TECHNIQUE/LIMITATION: Targeted OB sonogram for requested parameters only. FINDINGS: Cardiac activity: 136-bpm. FATOUMATA: 6.8-cm Placenta: Anterior. No evidence of abruption. No placenta previa. Presentation: Vertex Cervical length: 3.2-cm. Closed appearance. IMPRESSION: Targeted OB sonogram for requested parameters
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
== END 2018-08-12 22:56 | disposition home or self-care (01) ==
LOC: LC 18:07
PROVIDERS: ATTEND Obstetrics & Gynecology
PROC: 4A1HXCZ Monitoring of Products of Conception, Cardiac Rate, External Approach (ICD-10-PCS; principal; 2018-08-12)
DX: O9A.213 Injury, poisoning and certain other consequences of external causes complicating pregnancy, third trimester (principal); Z3A.36 36 weeks gestation of pregnancy
CPT/HCPCS: 36415; 59025; 76815; 80307; 81001; 84112; 85027; 85460; 85610; 85730; 87210; 87491; 87591

== ENCOUNTER 2018-08-17 15:46 | Outpatient (CLI) | payer MEDICAID ==
[2018-08-17 16:25] LABS: APPEARANCE,URINE CLEAR; BILIRUBIN,URINE NEGATIVE (NEGATIVE); COLOR,URINE YELLOW; GLUCOSE, URINE NEGATIVE (NEGATIVE); KETONES,URINE NEGATIVE (NEGATIVE); LEUKOCYTE ESTERASE,URINE NEGATIVE (NEGATIVE); NITRITE,URINE NEGATIVE (NEGATIVE); PROTEIN,URINE NEGATIVE (NEGATIVE)
[2018-08-17 16:48] LABS: URINE AMPHETAMINES SCREEN NEGATIVE; URINE BARBITURATES SCREEN NEGATIVE; URINE BENZODIAZEPINES SCREEN NEGATIVE; URINE COCAINE SCREEN NEGATIVE; URINE MARIJUANA (THC) SCREEN NEGATIVE; URINE METHADONE SCREEN NEGATIVE; URINE PHENCYCLIDINE SCREEN NEGATIVE
--- NOTE | 2018-08-17 17:25 | Non Stress Test Report ---
Non Stress Test Datetime Report Generated by CPN: 08/17/2018 17:25 DEMOGRAPHIC EGA NST: 36.6 INDICATION Indication for Study: Diabetes Mellitus; Other Indication for Study (NST) Other: LABOR CHECK MONITORING Monitor Explained: Monitor Explained; Test Explained; Patient Verbalized Understanding Time on Monitor: 08/17/2018 16:07 Time off Monitor: 08/17/2018 17:13 NST Duration: 66 NST INTERVENTIONS NST Interventions: PO Hydration; Reposition Patient BABY A: [id number] BABY A Movement : Present Contraction Frequency : x1 FHR Baseline : 135 Accelerations : 15X15 Decelerations : None Variability : Moderate 6-25bpm NST Review: Meets Criteria for Reactive NST NST Review and Verified By : Kita Camp RNC NST Results: Reactive NST REPORT Report Trigger: Send Report
== END 2018-08-17 17:23 | disposition home or self-care (01) ==
LOC: LC 15:46
PROVIDERS: ATTEND Obstetrics & Gynecology
PROC: 4A1HXCZ Monitoring of Products of Conception, Cardiac Rate, External Approach (ICD-10-PCS; principal; 2018-08-17)
DX: O24.419 Gestational diabetes mellitus in pregnancy, unspecified control (principal); Z3A.36 36 weeks gestation of pregnancy
CPT/HCPCS: 59025; 80307; 81001

== ENCOUNTER 2018-09-01 08:06 | Inpatient (IN) | payer MEDICAID ==
[2018-09-01] MEDS ORDERED: OXYTOCIN/NORMAL SALINE 20 UNIT/1,000 ML RTUINJ IV PRN ×2 (08:23→16:55)
[2018-09-01] MEDS ORDERED: RINGERS SOLUTION,LACTATED 1,000 ML IV PRN (08:23)
[2018-09-01 08:50] LABS: APPEARANCE,URINE CLEAR; BILIRUBIN,URINE NEGATIVE (NEGATIVE); COLOR,URINE YELLOW; GLUCOSE, URINE NEGATIVE (NEGATIVE); KETONES,URINE NEGATIVE (NEGATIVE); LEUKOCYTE ESTERASE,URINE NEGATIVE (NEGATIVE); NITRITE,URINE NEGATIVE (NEGATIVE); PROTEIN,URINE NEGATIVE (NEGATIVE); URINE SPECIFIC GRAVITY 1.018
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
[2018-09-01] MEDS ORDERED: MISOPROSTOL 0.2 MG TABLET ONE (10:32)
[2018-09-01] MEDS ORDERED: LIDOCAINE 1% INJ-PF (10 MG/ML) 30 ML SDV ONE (10:33)
[2018-09-01] MEDS ORDERED: OXYTOCIN/NORMAL SALINE 20 UNIT/1,000 ML RTUINJ ONE (10:33)
[2018-09-01 10:35] LABS: ABSOLUTE EOSINOPHILS # (AUTO) 0.2 10^3/uL (0.0-0.6); ABSOLUTE LYMPHOCYTES (AUTO) 1.7 10^3/uL (0.5-4.7); ABSOLUTE MONOCYTES (AUTO) 0.8 10^3/uL (0.1-1.4); ABSOLUTE NEUT (AUTO) 6.1 10^3/uL (1.7-8.2); BASOPHILS % (AUTO) 0.3 % (0-2); EOSINOPHILS % (AUTO) 2.2 % (0-6); HEMATOCRIT 30.7 % (36.0-47.0); HEMOGLOBIN 9.9 g/dL (12.0-15.5); LYMPHOCYTES % (AUTO) 19.3 % (13-45); MEAN CORPUSCULAR HEMOGLOBIN 22.6 pg (27.0-33.4); MEAN CORPUSCULAR HGB CONC 32.2 g/dL (32.0-36.0); MEAN CORPUSCULAR VOLUME 70 fl (80-97); MONOCYTES % (AUTO) 8.7 % (3-13); PLATELET COUNT 197 10^3/uL (150-450); RED BLOOD COUNT 4.38 10^6/uL (3.72-5.28); RED CELL DISTRIBUTION WIDTH 14.4 % (11.5-14.0); SEGMENTED NEUTROPHILS % (AUTO) 69.5 % (42-78); TOTAL CELLS COUNTED % (AUTO) 100 %; WHITE BLOOD COUNT 8.8 10^3/uL (4.0-10.5)
[2018-09-01] MEDS ORDERED: BUPIVACAINE HCL 0.25 % INJ/PF (2.5 MG/1 ML) 30 ML VIAL ONE (11:44)
[2018-09-01] MEDS ORDERED: EPHEDRINE SULFATE INJ 50 MG/1 ML AMPULE ONE (11:44)
[2018-09-01] MEDS ORDERED: FENTANYL/BUPIVACAINE/NS/PF 300 MCG/150 ML RTUINJ EPI ONE (11:44)
[2018-09-01 13:07] LABS: URINE AMPHETAMINES SCREEN NEGATIVE; URINE BARBITURATES SCREEN NEGATIVE; URINE BENZODIAZEPINES SCREEN NEGATIVE; URINE COCAINE SCREEN NEGATIVE; URINE MARIJUANA (THC) SCREEN NEGATIVE; URINE METHADONE SCREEN NEGATIVE; URINE PHENCYCLIDINE SCREEN NEGATIVE
--- NOTE | 2018-09-01 14:19 | L&D Progress Notes ---
PROGRESS NOTES Datetime Report Generated by CPN: 09/01/2018 14:18 PROGRESS NOTE Impression: Normal Progression of Labor; Reassuring Heart Rate Procedures: Artificial ROM; Sterile Vag Exam Plan: Continue Present Management; Induction Vital Signs : Reviewed; Within Normal Limits Comment: 3/ant/100/vtx/0, arom clear fluid, Cat 1 strip, comfortable with epidural, irreg uc's LAST VAGINAL EXAM-NURSING Dilitation: 3.0 Dilitation: 2.5 Effacement: 100 Effacement: 50 Station: 0 Station: -2 FETUS A Monitoring: External US Variability: Moderate 6-25bpm Accelerations: 15X15 FHR Category: Category I : 39.0 SIGNATURE SIGNATURE: [id number];[id number];[id number] SIGNATURE: ,[id number];[id number];[id number] SIGNATURE: ,[id number] Assignment: Snow Nichols MD Signature: with User ID: [email or web address] : with User ID: [email or web address]
[2018-09-01] MEDS ORDERED: ACETAMINOPHEN 650 MG SUPP.RECT PR PRN (16:55)
[2018-09-01] MEDS ORDERED: NA PHOS,M-B/NA PHOS,DI-BA (ADULT) 133 ML ENEMA PR PRN (16:55)
[2018-09-01] MEDS ORDERED: PROMETHAZINE HCL INJ 25 MG/1 ML VIAL IV PRN (16:55)
[2018-09-01] MEDS ORDERED: GLYCERIN/WITCH HAZEL LEAF 1 EACH MED..PAD TP PRN (16:55)
[2018-09-01] MEDS ORDERED: MEASLES,MUMPS&RUBELLA VACC/PF 0.5 ML VIAL SUBCUT PRN (16:55)
[2018-09-01] MEDS ORDERED: DIBUCAINE 1% OINTMENT 56 GM TP PRN (16:55)
[2018-09-01] MEDS ORDERED: ZOLPIDEM TARTRATE 5 MG TABLET PO PRN (16:55)
[2018-09-01] MEDS ORDERED: PROMETHAZINE HCL 25 MG SUPP.RECT PR PRN (16:55)
[2018-09-01] MEDS ORDERED: PSEUDOEPHEDRINE HCL 30 MG TABLET PO PRN (16:55)
[2018-09-01] MEDS ORDERED: DIPHENHYDRAMINE HCL 25 MG CAPSULE PO PRN (16:55)
[2018-09-01] MEDS ORDERED: MAGNESIUM HYDROXIDE SUSP 30 ML UDCUP PO PRN (16:55)
[2018-09-01] MEDS ORDERED: BENZOCAINE/MENTHOL AEROSOL SPRAY 56 ML TOP PRN (16:55)
[2018-09-01] MEDS ORDERED: DIPH/PERTUSS(ACELL)/TETANUS VAC/PF 0.5 ML SYR (>=10YO) IM PRN (16:55)
[2018-09-01] MEDS ORDERED: ACETAMINOPHEN WITH CODEINE #3 TABLET PO PRN ×2 (16:55)
[2018-09-01] MEDS ORDERED: PROMETHAZINE HCL 25 MG TABLET PO PRN (16:55)
[2018-09-01] MEDS ORDERED: ONDANSETRON HCL INJ/PF 4 MG/2 ML SDV IV ONE (18:16)
[2018-09-01] MEDS ORDERED: ONDANSETRON HCL INJ/PF 4 MG/2 ML SDV ONE (18:18)
--- NOTE | 2018-09-01 18:55 | Delivery Summary ---
Del Sum A-C Datetime Report Generated by CPN: 09/01/2018 18:55 DELIVERY PERSONNEL DELIVERY PERSONNEL: [id number] Delivery Doctor:: Snow Nichols MD Labor and Delivery Nurse:: Carla Moctezuma RNfifth grade teacher Nurse:: Aury Riojas RN Engineer Operations And Maintenance/ROLL FINISHER: Laney Hadley, ST Additional Personnel: : Barry Connors RN MATERNAL INFORMATION Delivery Anesthesia: Epidural Medications After Delivery: Pitocin Drip 20 Units/1000ml NSS Estimated Blood Loss (ml): 150 Maternal Complications: None LABOR SUMMARY EDC: 09/08/2018 00:00 No. Babies in Womb: 1 Attempted: No Labor Anesthesia: Epidural LABOR INFORMATION Reason for Induction: Maternal Diabetes Onset of Labor: 09/01/2018 14:15 Complete Dilatation: 09/01/2018 16:32 Oxytocin: Induction Group B Beta Strep: Negative Antibiotics # of Doses: 0 Steroids Given: None Reason Steroids Not Administered: Not Applicable MEMBRANES Membranes Rupture Method: Artificial Rupture of Membranes: 09/01/2018 14:13 Length of Rupture (hr): 2.48 Amniotic Fluid Color: Clear Amniotic Fluid Amount: Small Amniotic Fluid Odor: Normal STAGES OF LABOR Stage 1 hr: 2 Stage 1 min: 17 Stage 2 hr: 0 Stage 2 min: 10 Stage 3 hr: 0 Stage 3 min: 2 Total Time in Labor hr: 2 Total Time in Labor min: 29 VAGINAL DELIVERY Episiotomy: None Laceration #1: None Laceration Extension #1: N/A Sponge Count Correct: N/A Sharps Count Correct: N/A CSECTION DELIVERY Primary Indication: N/A Secondary Indication: N/A CSection Incidence: N/A Labor: N/A Elective: N/A CSection Incision: N/A BABY A INFORMATION Delivery Date/Time: 09/01/2018 16:42 Method of Delivery: Vaginal Born in Route : No : N/A Forceps: N/A Vacuum Extraction: N/A Shoulder Dystocia : No PRESENTATION/POSITION BABY A Presentation: Cephalic Cephalic Presentation: Vertex Vertex Position: Right Occipital Anterior Breech Presentation: N/A PLACENTA INFORMATION BABY A Placenta Delivery Time : 09/01/2018 16:44 Placenta Method of Delivery: Spontaneous Placenta Status: Delivered SCORES BABY A Heart Rate 1 min: >100 bpm Resp Effort 1 min: Good Cry Reflex Irritability 1 min: Cough or Sneeze or Pulls Away Muscle Tone 1 min: Active Motion Color 1 min: Body [place], Extremities Blue Resuscitation Effort 1 min: Tactile Stimulation SCORE 1 MIN: 9 Heart Rate 5 min: >100 bpm Resp Effort 5 min: Good Cry Reflex Irritability 5 min: Cough or Sneeze or Pulls Away Muscle Tone 5 min: Active Motion Color 5 min: Body [place], Extremities Blue Resuscitation Effort 5 min: Tactile Stimulation SCORE 5 MIN: 9 INFANT INFORMATION BABY A Gestational Age at Delivery: 39.0 Gestational Status: Full Term- 39- 40.6 Weeks Infant Outcome : Liveborn Infant Condition : Stable Sex: Female IDENTIFICATION BABY A Infant Verification Date/Time: 09/01/2018 17:05 ID Band Number: [id number] Mother's Name Verified: Yes RN Verifying : Osman Moctezuma, RN Aime Connors, RN WEIGHT/LENGTH BABY A Birthweight (gm): 2707 Weight (lb): 5 Weight (oz): 15 Length (in): 19.25 Length (cm): 48.90 CORD INFORMATION BABY A No. Cord Vessels: 3 Nuchal Cord : N/A Cord Blood Taken: Yes-For Storage (Mom's Blood type +) Suction: None ASSESSMENT BABY A Complications: None Physical Findings at Delivery: Within Normal Limits Respirations: Appears Normal Skin to Skin: Yes Fitness Coach/ALS Called : No Care By: Samantha CONNORS, RAUL Transferred To: Remains with Mother BABY B INFORMATION : N/A SIGNATURES Signature: with User ID: [email or web address]
[2018-09-01] MEDS: IBUPROFEN 800 MG TABLET PO SCH (22:11)
[2018-09-01] MEDS: FAMOTIDINE 20 MG TABLET PO SCH (22:11)
[2018-09-02] MEDS: IBUPROFEN 800 MG TABLET PO SCH ×3 (05:16→22:37)
[2018-09-02 08:22] LABS: HEMOGLOBIN 8.4 g/dL (12.0-15.5); MEAN CORPUSCULAR HEMOGLOBIN 22.6 pg (27.0-33.4); MEAN CORPUSCULAR HGB CONC 32.1 g/dL (32.0-36.0); MEAN CORPUSCULAR VOLUME 70 fl (80-97); PLATELET COUNT 177 10^3/uL (150-450); RED BLOOD COUNT 3.71 10^6/uL (3.72-5.28); RED CELL DISTRIBUTION WIDTH 14.8 % (11.5-14.0); WHITE BLOOD COUNT 10.4 10^3/uL (4.0-10.5)
--- NOTE | 2018-09-02 09:04 | PDOC PROGRESS REPORT ---
Subjective-OB Progress Note for:: 09/02/18 Physical Exam (OB) Vital Signs: Temp Pulse Resp BP Pulse Ox 97.9 F 65 16 102/71 100 09/02/18 07:27 09/02/18 07:27 09/02/18 07:27 09/02/18 07:27 09/02/18 07:27 Intake & Output 09/01/18 09/02/18 09/03/18 06:59 06:59 06:59 Intake Total 1999 Balance 1999 Weight 71.7 kg - PIH/Pre-Eclampsia Clonus: Negative Headache: Absent Epigastric Pain: No Visual Changes: No - Lochia Lochia Amount: Scant < 10 ml - Abdomen Description: Soft, Round Hernia Present: No Bowel Sounds: Normoactive Flatus Presence: Present Stool: No Fundal Description: Firm Fundal Height: u/u - u/2 Objective-Diagnostic Laboratory: 09/02/18 07:57 09/01/18 09/01/18 09/02/18 10:15 10:15 07:57 WBC 8.8 10.4 RBC 4.38 3.71 L Hgb 9.9 L 8.4 L Hct 30.7 L 26.0 L MCV 70 L 70 L MCH 22.6 L 22.6 L MCHC 32.2 32.1 RDW 14.4 H 14.8 H Plt Count 197 177 Seg Neutrophils % 69.5 Lymphocytes % 19.3 Monocytes % 8.7 Eosinophils % 2.2 Basophils % 0.3 Absolute Neutrophils 6.1 Absolute Lymphocytes 1.7 Absolute Monocytes 0.8 Absolute Eosinophils 0.2 Absolute Basophils 0.0 Blood Type O POSITIVE Antibody Screen NEGATIVE
[2018-09-02] MEDS: DOCUSATE SODIUM 100 MG CAPSULE PO SCH ×3 (09:51→20:27)
[2018-09-02] MEDS: FERROUS SULFATE 325 MG TABLET PO SCH ×3 (09:51→20:27)
[2018-09-02] MEDS: PRENATAL VITAMIN W DHA CAPSULE PO SCH (09:52)
[2018-09-02] MEDS: SENNOSIDES/DOCUSATE 8.6-50 MG 1 EACH TABLET PO SCH (09:52)
[2018-09-02] MEDS: FAMOTIDINE 20 MG TABLET PO SCH ×2 (09:52→22:37)
[2018-09-03] MEDS: IBUPROFEN 800 MG TABLET PO SCH ×2 (05:11→14:59)
[2018-09-03] MEDS: PRENATAL VITAMIN W DHA CAPSULE PO SCH (11:00)
[2018-09-03] MEDS: FAMOTIDINE 20 MG TABLET PO SCH (11:00)
[2018-09-03] MEDS: FERROUS SULFATE 325 MG TABLET PO SCH (11:00)
[2018-09-03] MEDS: DOCUSATE SODIUM 100 MG CAPSULE PO SCH (11:00)
[2018-09-03] MEDS: SENNOSIDES/DOCUSATE 8.6-50 MG 1 EACH TABLET PO SCH (11:00)
--- NOTE | 2018-09-03 11:02 | PDOC DISCHARGE SUMMARY ---
Final Diagnosis Discharge Date: 09/03/18 - Final Diagnosis (1) Delivery normal Is this a current diagnosis for this admission?: Yes (2) GDM (gestational diabetes mellitus) Is this a current diagnosis for this admission?: Yes (3) Grand multipara Is this a current diagnosis for this admission?: Yes (4) Normal vaginal delivery Is this a current diagnosis for this admission?: Yes Discharge Data - Discharge Medication Prescriptions: Ibuprofen [Motrin 800 mg Tablet] 800 mg PO Q8HP PRN #60 tablet PRN Reason: Sertraline HCl [Zoloft 50 mg Tablet] 1 tab PO DAILY #30 tablet Home Medications: Vit Calc,Iron,Folic [ Vitamins] 1 each PO DAILY 01/16/18 Albuterol Sulfate [Proair HFA Inhalation Aerosol 8.5 gm MDI] 2 puff IH Q4H PRN #1 mdi 02/18/18 Ferrous Sulfate [Iron] 1 tab PO DAILY 07/30/18 Ibuprofen [Motrin 800 mg Tablet] 800 mg PO Q8HP PRN #60 tablet 09/03/18 Sertraline HCl [Zoloft 50 mg Tablet] 1 tab PO DAILY #30 tablet 09/03/18 Procedures: NST Intrapartum Procedure(s): Spontaneous Vaginal Delivery - Diagnosis Test Laboratory: Temp Pulse Resp BP Pulse Ox 97.9 F 78 18 93/60 L 98 09/02/18 20:00 09/02/18 20:00 09/02/18 20:00 09/02/18 20:00 09/02/18 20:00 09/01/18 09/01/18 09/02/18 08:20 10:15 07:57 RBC 4.38 3.71 L Hgb 9.9 L 8.4 L Hct 30.7 L 26.0 L Urine Opiates Screen NEGATIVE - Discharge information/Instructions Discharge Activity: Balance Activity w/Rest, Pelvic Rest Discharge Diet: Regular Disposition: HOME, SELF-CARE Follow up with: [facility] in: 4, Weeks
[2018-09-03] MEDS ORDERED: MEDROXYPROGESTERONE ACET INJ 150 MG/1 ML VIAL IM ONE ×2 (11:30→15:00)
[2018-09-03 13:57] VITALS: BP 93/60
== END 2018-09-03 15:15 | disposition home or self-care (01) | DRG 807 ==
LOC: LR 08:06 → 2S 19:50
PROVIDERS: ADMIT Obstetrics & Gynecology; ATTEND Obstetrics & Gynecology
PROC: 10E0XZZ Delivery of Products of Conception, External Approach (ICD-10-PCS; principal; 2018-09-01)
PROC: 10907ZC Drainage of Amniotic Fluid, Therapeutic from Products of Conception, Via Natural or Artificial Opening (ICD-10-PCS; 2018-09-01)
PROC: 3E033VJ Introduction of Other Hormone into Peripheral Vein, Percutaneous Approach (ICD-10-PCS; 2018-09-01)
PROC: 4A1HX4Z Monitoring of Products of Conception, Cardiac Electrical Activity, External Approach (ICD-10-PCS; 2018-09-01)
DX: O24.425 Gestational diabetes mellitus in childbirth, controlled by oral hypoglycemic drugs (principal); Z37.0 Single live birth; O99.343 Other mental disorders complicating pregnancy, third trimester; F32.9 Major depressive disorder, single episode, unspecified; O99.013 Anemia complicating pregnancy, third trimester; Z3A.39 39 weeks gestation of pregnancy
CPT/HCPCS: 36415; 80307; 81001; 82962; 85025; 85027; 86592; 86850; 86900; 86901; 90715; 94760; J1050; J2405; J2590; J3010; J3490